=== PATIENT | male | born 1955 | race Caucasian/White ===

== ENCOUNTER 2017-02-11 05:59 | Inpatient (IN) ==
[2017-02-11] MEDS ORDERED: Ipratropium/Albuterol Neb 3 ML IH ONE (06:14)
[2017-02-11] MEDS ORDERED: methylPREDNISolone 125 MG/2 ML VIAL IVP ONE (06:14)
--- NOTE | 2017-02-11 06:15 | Emergency Department Note ---
Disposition Clinical Impression: Dyspnea, Congestive heart failure Disposition: Admitted As Inpatient Condition: Undetermined General Adult HPI - General Chief complaint: ED Shortness of Breath/Dyspnea Stated complaint: CHIO Time Seen by Provider: 02/11/17 06:09 Source: patient, family Limitations: no limitations - History of Present Illness Pain Scale: 9 - Related Data Home Medications Medication Instructions Recorded Confirmed Allopurinol [Zyloprim] 300 mg PO DAILY 12/28/16 02/11/17 Aspirin [Lo-Dose Aspirin EC] 81 mg PO DAILY 12/28/16 02/11/17 Cyanocobalamin (B-12) [Vitamin B12] 1,000 mcg PO DAILY 12/28/16 02/11/17 Digoxin [Lanoxin] 250 mcg PO DAILY 12/28/16 02/11/17 Gabapentin [Neurontin] 300 mg PO TID 12/28/16 02/11/17 Indomethacin 50 mg PO TID 12/28/16 02/11/17 Metoprolol [Lopressor] 25 mg PO BID 12/28/16 02/11/17 Previous Rx's Medication Instructions Recorded HYDROcodone/Acet 5/325 mg [[place] 1 tab PO Q6H PRN #12 tab 02/10/17 5-325 mg] Allergies Allergy/AdvReac Type Severity Reaction Status Date / Time No Known Allergies Allergy Verified 02/11/17 08:14 Past Medical History - Past Medical History Medical history: Reports: atrial fibrillation, COPD Surgical history: Reports: orthopedic, other Psychiatric history: Reports: no psych history - Social History Smoking Status: Never smoker Smokeless Tobacco Status: No Alcohol use: Reports: none Drug use: Reports: none Physical Exam - General Limitations: no limitations General appearance: alert, in no apparent distress Course Vital Signs Temperature 98.1 F 02/11/17 06:02 Pulse Rate 86 02/11/17 06:02 Respiratory Rate 20 02/11/17 06:02 Blood Pressure 93/59 02/11/17 06:02 O2 Sat by Pulse Oximetry 92 02/11/17 06:02 Temperature 97.1 F L 02/12/17 07:27 Pulse Rate 81 02/12/17 07:27 Respiratory Rate 18 02/12/17 11:03 Blood Pressure 102/65 02/12/17 07:27 O2 Sat by Pulse Oximetry 96 02/12/17 11:03 Oxygen Delivery Oxygen Delivery Room Air Medical Decision Making - Lab Data Result diagrams: 02/12/17 01:00 02/12/17 01:00 Lab Results 02/11/17 02/11/17 02/11/17 Range/Units 06:30 06:30 06:30 WBC 9.4 (4.3-11.1) K/mcL RBC 5.04 (4.19-5.50) M/mcL Hgb 14.2 (12.9-16.9) g/dL Hct 44.9 (37.5-50.1) % MCV 89.1 (83.0-100.0) fL MCH 28.2 (28.0-33.3) pg MCHC 31.6 (31.6-35.5) g/dL RDW 18.5 H (11.5-14.5) % Plt Count 173 (140-400) K/mcL MPV 12.2 (9.4-12.4) fL Seg Neutrophils % 52.0 % Band Neutrophils % 42.0 H (0-4) % Lymphocytes % 2.0 % Metamyelocytes % 2.0 H (0) % Myelocytes % 2.0 H (0) % Neutrophils # 8.8 (1.6-8.9) K/mcL Lymphocytes # 0.2 L (0.6-4.6) K/mcL Nucleated RBCs/100 WBC 0.3 H (0) /100 WBC Platelet Estimate Normal (Normal) Sodium 139 (136-145) mEq/L Potassium 4.2 (3.5-4.5) mEq/L Chloride 102 (98-109) mEq/L Carbon Dioxide 22 (19-29) mEq/L BUN 40 H (8-26) mg/dL Creatinine 1.28 H (0.72-1.25) mg/dL Est GFR ( Amer) > 60 (> 60) Est GFR (Non-Af Amer) 57 L (> 60) BUN/Creatinine Ratio 31 H (6-26) Glucose 89 (70-99) mg/dL Calculated Osmolality 297 (280-300) Calcium 9.8 (8.6-10.8) mg/dL Troponin I 0.01 (0-0.03) ng/mL B-Natriuretic Peptide (0-100) pg/mL Digoxin 1.9 (0.8-2.0) ng/mL 02/11/17 Range/Units 06:30 WBC (4.3-11.1) K/mcL RBC (4.19-5.50) M/mcL Hgb (12.9-16.9) g/dL Hct (37.5-50.1) % MCV (83.0-100.0) fL MCH (28.0-33.3) pg MCHC (31.6-35.5) g/dL RDW (11.5-14.5) % Plt Count (140-400) K/mcL MPV (9.4-12.4) fL Seg Neutrophils % % Band Neutrophils % (0-4) % Lymphocytes % % Metamyelocytes % (0) % Myelocytes % (0) % Neutrophils # (1.6-8.9) K/mcL Lymphocytes # (0.6-4.6) K/mcL Nucleated RBCs/100 WBC (0) /100 WBC Platelet Estimate (Normal) Sodium (136-145) mEq/L Potassium (3.5-4.5) mEq/L Chloride (98-109) mEq/L Carbon Dioxide (19-29) mEq/L BUN (8-26) mg/dL Creatinine (0.72-1.25) mg/dL Est GFR ( Amer) (> 60) Est GFR (Non-Af Amer) (> 60) BUN/Creatinine Ratio (6-26) Glucose (70-99) mg/dL Calculated Osmolality (280-300) Calcium (8.6-10.8) mg/dL Troponin I (0-0.03) ng/mL B-Natriuretic Peptide 222 H (0-100) pg/mL Digoxin (0.8-2.0) ng/mL Attestation Statement - Attestation Attestation: I examined this patient and my medical decision-making was reviewed with the Resident Physician. I agree with the documented findings, disposition and treatment plan as described except to the extent set forth below. [id number] time provided A sugar arrives complaining of dyspnea. Home medication list reviewed by me. Patient sitting on the edge of the stretcher and appears in no acute distress at the time of my evaluation. Initial workup started. Care will be endorsed to the oncoming physician Dr. Lacy at 7 AM pending laboratory investigations, chest x-ray, reevaluation
--- NOTE | 2017-02-11 06:27 | Emergency Department Note ---
Disposition Clinical Impression: Dyspnea Qualifiers: Dyspnea type: unspecified Qualified Code(s): R06.00 - Dyspnea, unspecified Disposition: Still a Patient Condition: Undetermined Referrals: Simeon Lloyd Jr, MD [Primary Care Provider] - Forms: ED Satisfaction Letter Time of Disposition: 06:45 SOB HPI - General Chief Complaint: ED Shortness of Breath/Dyspnea Stated Complaint: CHIO Time Seen by Provider: 02/11/17 06:09 Source: patient, family Limitations: no limitations Nursing Notes Reviewed: Yes Vital Signs Reviewed: Yes - History of Present Illness Patient is a 61-year-old male who presents to [facility] ED with a chief complaint of difficulty breathing. States he was seen here recently for a fall and he was prescribed [place]. He took a pill around 2 PM yesterday and then since then has been feeling increasingly short of breath. Past medical history significant for COPD and atrial fibrillation. Denies any fever or chills, cough, chest pain, abdominal pain, problems with urination or bowel movements. Patient does not have any nebulizers at home. States he does use his inhalers. He is not on any home oxygen. Pt Subjective Complaint: shortness of breath Onset (ago): hour(s) Severity: none Consistency/Duration: constant Improves with: nothing Worsens with: nothing Known history of: COPD Associated symptoms: Reports: denies other symptoms. Denies: chest pain, fever , cough, nausea/vomiting, abdominal pain Treatment prior to arrival: none Cough present: No - Related Data Home oxygen amount: none Home Medications Medication Instructions Recorded Confirmed Allopurinol [Zyloprim] 300 mg PO DAILY 12/28/16 12/28/16 Aspirin [Lo-Dose Aspirin EC] 81 mg PO DAILY 12/28/16 12/28/16 Cyanocobalamin (B-12) [Vitamin B12] 1,000 mcg PO DAILY 12/28/16 12/28/16 Digoxin [Lanoxin] 250 mcg PO DAILY 12/28/16 12/28/16 Gabapentin [Neurontin] 300 mg PO TID 12/28/16 12/28/16 Indomethacin 50 mg PO TID 12/28/16 12/28/16 Metoprolol [Lopressor] 25 mg PO BID 12/28/16 12/28/16 Previous Rx's Medication Instructions Recorded HYDROcodone/Acet 5/325 mg [[place] 1 tab PO Q6H PRN #12 tab 02/10/17 5-325 mg] Allergies Allergy/AdvReac Type Severity Reaction Status Date / Time No Known Allergies Allergy Verified 12/24/16 08:41 All systems ED: reviewed and negative except as stated. Past Medical History - Past Medical History Attestation: Yes The following information was validated with the patient. Source: patient Medical history: Reports: atrial fibrillation, COPD Surgical history: Reports: orthopedic, other Psychiatric history: Reports: no psych history - Social History Smoking Status: Never smoker Smokeless Tobacco Status: No Alcohol use: Reports: none Drug use: Reports: none Physical Exam CONSTITUTIONAL: Well-appearing; well-nourished; A&O X 3, in no apparent distress HEAD: Normocephalic; atraumatic EYES: PERRL, no scleral icterus NOSE: The nose is normal in appearance without rhinorrhea NECK: No JVD or distended neck veins RESP: Normal chest excursion with respiration; shallow breath sounds though clear bilaterally; no wheezes, rhonchi, or rales CARD: Regular rhythm, without murmurs, rub or gallop ABD: Non-distended; non-tender, soft, without rigidity, rebound or guarding,no pulsatile mass CHEST: No pain with palpation SKIN: Normal for age and race; warm and dry without diaphoresis ; no apparent lesions EXTREMITIES: Pulses are 2 plus and equal times 4 extremities, no peripheral edema or calf muscle pain - General Limitations: no limitations General appearance: alert, in no apparent distress Course Course Narrative: Patient seen and examined. Difficulty breathing. Cardiopulmonary workup initiated. Will give a breathing treatment as well as some steroids to see if this helps. - Reevaluation(s) Reevaluation #1: Lab work, chest x-ray still pending. Patient signed out to oncoming physician Dr. Lacy Time: 06:44 Vital Signs Temperature 98.1 F 02/11/17 06:02 Pulse Rate 86 02/11/17 06:02 Respiratory Rate 20 02/11/17 06:02 Blood Pressure 93/59 02/11/17 06:02 O2 Sat by Pulse Oximetry 92 02/11/17 06:02 Temperature 98.1 F 02/11/17 06:02 Pulse Rate 86 02/11/17 06:02 Respiratory Rate 20 02/11/17 06:02 Blood Pressure 93/59 02/11/17 06:02 O2 Sat by Pulse Oximetry 92 02/11/17 06:02 Oxygen Delivery Oxygen Delivery Room Air Shortness of Breath/Dyspnea - Medical Records Medical records reviewed: Yes I reviewed the patient's medical records. - EKG Data EKG attestation: Yes I reviewed and interpreted this EKG. EKG results narrative: EKG done at 616 shows atrial fibrillation with a rate of [address] elevation or depression. Left axis deviation. Low voltage throughout. Unchanged from prior EKG done 02/10/2017.
[2017-02-11 07:12] LABS: Hematocrit 44.9 % (37.5-50.1); Hemoglobin 14.2 g/dL (12.9-16.9); Mean Corpuscular HGB Conc 31.6 g/dL (31.6-35.5); Mean Corpuscular Hemoglobin 28.2 pg (28.0-33.3); Mean Corpuscular Volume 89.1 fL (83.0-100.0); Mean Platelet Volume 12.2 fL (9.4-12.4); Platelet Count 173 K/mcL (140-400); Red Blood Count 5.04 M/mcL (4.19-5.50); Red Cell Distribution Width 18.5 % (11.5-14.5)
[2017-02-11] MEDS ORDERED: Furosemide 40 MG/4 ML VIAL IVP ONE (07:12)
--- NOTE | 2017-02-11 07:12 | Emergency Department Note ---
Disposition Clinical Impression: Dyspnea Qualifiers: Dyspnea type: unspecified Qualified Code(s): R06.00 - Dyspnea, unspecified Congestive heart failure Qualifiers: Congestive heart failure type: unspecified congestive heart failure type Congestive heart failure chronicity: acute Qualified Code(s): I50.9 - Heart failure, unspecified Disposition: Admitted As Inpatient Condition: Undetermined Referrals: Simeon Lloyd Jr, MD [Primary Care Provider] - Forms: ED Satisfaction Letter Time of Disposition: 07:57 General Adult HPI - General Chief complaint: ED Shortness of Breath/Dyspnea Stated complaint: CHIO Time Seen by Provider: 02/11/17 06:09 Source: patient, family Limitations: no limitations - History of Present Illness Pain Scale: 9 - Related Data Home Medications Medication Instructions Recorded Confirmed Allopurinol [Zyloprim] 300 mg PO DAILY 12/28/16 02/11/17 Aspirin [Lo-Dose Aspirin EC] 81 mg PO DAILY 12/28/16 02/11/17 Cyanocobalamin (B-12) [Vitamin B12] 1,000 mcg PO DAILY 12/28/16 02/11/17 Digoxin [Lanoxin] 250 mcg PO DAILY 12/28/16 02/11/17 Gabapentin [Neurontin] 300 mg PO TID 12/28/16 02/11/17 Indomethacin 50 mg PO TID 12/28/16 02/11/17 Metoprolol [Lopressor] 25 mg PO BID 12/28/16 02/11/17 Previous Rx's Medication Instructions Recorded HYDROcodone/Acet 5/325 mg [[place] 1 tab PO Q6H PRN #12 tab 02/10/17 5-325 mg] Allergies Allergy/AdvReac Type Severity Reaction Status Date / Time No Known Allergies Allergy Verified 02/11/17 08:14 Past Medical History - Past Medical History Medical history: Reports: atrial fibrillation, COPD Surgical history: Reports: orthopedic, other Psychiatric history: Reports: no psych history - Social History Smoking Status: Never smoker Smokeless Tobacco Status: No Alcohol use: Reports: none Drug use: Reports: none Physical Exam - General Limitations: no limitations General appearance: alert, in no apparent distress Course - Reevaluation(s) Reevaluation #1: 61-year-old with a history COPD and A. fib comes in complaining of shortness of breath. Patient was initially seen by Dr. Warren and treated with dilator and steroids. Chest x-ray shows evidence of CHF. I did review an echocardiogram from 2016 shows an EF of 60%. Time: 07:14 - Consultations Consultation #1: Discussed with , admit. Time: 08:17 Vital Signs Temperature 98.1 F 02/11/17 06:02 Pulse Rate 86 02/11/17 06:02 Respiratory Rate 20 02/11/17 06:02 Blood Pressure 93/59 02/11/17 06:02 O2 Sat by Pulse Oximetry 92 02/11/17 06:02 Temperature 98.1 F 02/11/17 06:02 Pulse Rate 91 02/11/17 08:02 Respiratory Rate 20 02/11/17 08:02 Blood Pressure 118/70 02/11/17 08:02 O2 Sat by Pulse Oximetry 93 02/11/17 08:02 Oxygen Delivery Oxygen Delivery Room Air Medical Decision Making - Lab Data Lab results reviewed: Yes I reviewed the patient's lab results. Result diagrams: 02/11/17 06:30 02/11/17 06:30 Lab Results 02/11/17 02/11/17 02/11/17 Range/Units 06:30 06:30 06:30 WBC 9.4 (4.3-11.1) K/mcL RBC 5.04 (4.19-5.50) M/mcL Hgb 14.2 (12.9-16.9) g/dL Hct 44.9 (37.5-50.1) % MCV 89.1 (83.0-100.0) fL MCH 28.2 (28.0-33.3) pg MCHC 31.6 (31.6-35.5) g/dL RDW 18.5 H (11.5-14.5) % Plt Count 173 (140-400) K/mcL MPV 12.2 (9.4-12.4) fL Seg Neutrophils % 52.0 % Band Neutrophils % 42.0 H (0-4) % Lymphocytes % 2.0 % Metamyelocytes % 2.0 H (0) % Myelocytes % 2.0 H (0) % Neutrophils # 8.8 (1.6-8.9) K/mcL Lymphocytes # 0.2 L (0.6-4.6) K/mcL Nucleated RBCs/100 WBC 0.3 H (0) /100 WBC Platelet Estimate Normal (Normal) Sodium 139 (136-145) mEq/L Potassium 4.2 (3.5-4.5) mEq/L Chloride 102 (98-109) mEq/L Carbon Dioxide 22 (19-29) mEq/L BUN 40 H (8-26) mg/dL Creatinine 1.28 H (0.72-1.25) mg/dL Est GFR ( Amer) > 60 (> 60) Est GFR (Non-Af Amer) 57 L (> 60) BUN/Creatinine Ratio 31 H (6-26) Glucose 89 (70-99) mg/dL Calculated Osmolality 297 (280-300) Calcium 9.8 (8.6-10.8) mg/dL Troponin I 0.01 (0-0.03) ng/mL B-Natriuretic Peptide (0-100) pg/mL Digoxin 1.9 (0.8-2.0) ng/mL 02/11/17 Range/Units 06:30 WBC (4.3-11.1) K/mcL RBC (4.19-5.50) M/mcL Hgb (12.9-16.9) g/dL Hct (37.5-50.1) % MCV (83.0-100.0) fL MCH (28.0-33.3) pg MCHC (31.6-35.5) g/dL RDW (11.5-14.5) % Plt Count (140-400) K/mcL MPV (9.4-12.4) fL Seg Neutrophils % % Band Neutrophils % (0-4) % Lymphocytes % % Metamyelocytes % (0) % Myelocytes % (0) % Neutrophils # (1.6-8.9) K/mcL Lymphocytes # (0.6-4.6) K/mcL Nucleated RBCs/100 WBC (0) /100 WBC Platelet Estimate (Normal) Sodium (136-145) mEq/L Potassium (3.5-4.5) mEq/L Chloride (98-109) mEq/L Carbon Dioxide (19-29) mEq/L BUN (8-26) mg/dL Creatinine (0.72-1.25) mg/dL Est GFR ( Amer) (> 60) Est GFR (Non-Af Amer) (> 60) BUN/Creatinine Ratio (6-26) Glucose (70-99) mg/dL Calculated Osmolality (280-300) Calcium (8.6-10.8) mg/dL Troponin I (0-0.03) ng/mL B-Natriuretic Peptide 222 H (0-100) pg/mL Digoxin (0.8-2.0) ng/mL - Radiology Data Radiology results reviewed: Yes I reviewed the patient's radiology results. Chest X-Ray 02/11/17 06:14 IMPRESSION: 1. Hypoinflated lungs. 2. Cardiomegaly with pulmonary edema and small pleural effusions compatible with CHF. D/ / Shanthi Henry MD / Shanthi Henry MD Interpreting Provider: Shanthi Henry MD - EKG Data EKG #1 EKG attestation: Yes I reviewed and interpreted this EKG. Rhythm: A.Fib [place]/QRS: normal Interpretation: no acute changes
[2017-02-11 07:13] LABS: Nucleated Red Blood Cells 0.3 /100 WBC (0)
--- NOTE | 2017-02-11 07:13 | Electrocardiograph Report ---
[facility] Test Date: 2017-02-11 Pat Name: Vinnie Daniel Department: 103 Room: Gender: M Psychiatric Therapist: LEEANN MITCHELLB: 1955 Requested By: Savi Godoy Order Number: [id number] Reading MD: Lupillo Calvillo MD Measurements Intervals [place] Rate: 78 P: MS: 0 QRS: -5 QRSD: 101 T: 16 QT: 322 QTc: 355 Interpretive Statements ATRIAL FIBRILLATION LOW QRS VOLTAGE IN PRECORDIAL LEADS Electronically Signed On 02-11-2017 7:12:02 EST by Lupillo Calvillo MD
[2017-02-11 07:25] LABS: BUN/Creatinine Ratio 31 (6-26); Blood Urea Nitrogen 40 mg/dL (8-26); Calcium 9.8 mg/dL (8.6-10.8); Carbon Dioxide 22 mEq/L (19-29); Chloride 102 mEq/L (98-109); Glucose 89 mg/dL (70-99); Osmolality,Calculated 297 (280-300); Sodium 139 mEq/L (136-145); eGFR For African Americans > 60 (> 60); eGFR For Non-African Americans 57 (> 60)
[2017-02-11 07:29] LABS: Potassium 4.2 mEq/L (3.5-4.5)
[2017-02-11 07:33] LABS: Digoxin 1.9 ng/mL (0.8-2.0)
[2017-02-11 07:44] LABS: Lymphocytes # 0.2 K/mcL (0.6-4.6); Neutrophils # 8.8 K/mcL (1.6-8.9)
[2017-02-11 07:45] LABS: Platelet Estimate Normal (Normal)
--- NOTE | 2017-02-11 09:06 | Internal Med History&Physical ---
Date of Encounter: 02/11/17 Time of Encounter: 08:52 Assessment and Plan (1) Congestive heart failure Current visit: Yes Status: Acute Patient has likely diastolic congestive heart failure. Echocardiogram done in 2016 is suggestive of normal ejection fraction with elevated right ventricular systolic pressure. Patient has elevated BNP. Noted that x-rays this is suggestive of of congestive heart failure. Plan: Admit as inpatient: Patient needs intravenous diuretics. We will start him on Lasix 20 mg twice a day. We will monitor electrolytes very closely. Patient has a huge abdominal wall hernia that may be the limiting factor for his shortness of breath too. Qualifiers: Congestive heart failure type: unspecified congestive heart failure type Congestive heart failure chronicity: acute Qualified Code(s): I50.9 - Heart failure, unspecified (2) Dyspnea Current visit: Yes Status: Acute See above Qualifiers: Dyspnea type: unspecified Qualified Code(s): R06.00 - Dyspnea, unspecified (3) Injury of left rotator cuff Current visit: No Status: Acute I will call orthopedic transmission rebuilder to evaluate left rotator cuff injury. Qualifiers: Encounter type: subsequent encounter Qualified Code(s): S46.002D - Unspecified injury of muscle(s) and tendon(s) of the rotator cuff of left shoulder, subsequent encounter (4) Decubitus ulcer of right heel, stage 3 Current visit: No Status: Acute Stable DVT prophylaxis: Heparin Medical decision making: This patient has a moderate to severe risk of worsening in spite of being on appropriate medication due to the underlying complex medical condition. Internal Medicine - H&P: HPI Chief complaint: shortness of breath Admitted From: Emergency Dept History of present illness: PCP: Dr. Mike Lino Mr. Daniel is a 61 year old male with a background history of her COPD, hypertension, atrial fibrillation not on any anticoagulation, background history of congestive heart failure(echocardiogram: 04/08/2015: Ejection fraction 60%, RVSP 46, enlarged left atria.) Who was recently in the emergency room for left shoulder pain. Patient was sent home yesterday with the medication for left shoulder pain. Patient started feeling shortness of breath since last evening. The shortness of breath was getting worse since this morning. Patient came to the emergency room slat twister as he could not breathe well. Patient was evaluated in the emergency room. Basic labs are drawn. Noted that his BNP was elevated. X-ray chest was done which was suggestive of acute congestive heart failure. reason for admission: Exacerbation of her congestive heart failure possible diastolic. Family history: Noncontributory Past Med Surg Social Fam HX - Past Medical History Medical history: atrial fibrillation, COPD Psychiatric history: no psych history - Past Surgical History Surgical History: orthopedic, other - Social History Smoking Status: Never smoker Smokeless Tobacco Status: No Alcohol use: none Drug use: none - Family History Mother Living Status: Hx Family Cardiac Disorders: Yes Internal Medicine - H&P: Meds Allopurinol [Zyloprim] 300 mg PO DAILY 12/28/16 [History] Aspirin [Lo-Dose Aspirin EC] 81 mg PO DAILY 12/28/16 [History] Cyanocobalamin (B-12) [Vitamin B12] 1,000 mcg PO DAILY 12/28/16 [History] Digoxin [Lanoxin] 250 mcg PO DAILY 12/28/16 [History] Gabapentin [Neurontin] 300 mg PO TID 12/28/16 [History] Indomethacin 50 mg PO TID 12/28/16 [History] Metoprolol [Lopressor] 25 mg PO BID 12/28/16 [History] HYDROcodone/Acet 5/325 mg [[place] 5-325 mg] 1 tab PO Q6H PRN #12 tab 02/10/17 [Rx ] 3 Allergy/AdvReac Type Severity Reaction Status Date / Time No Known Allergies Allergy Verified 02/11/17 08:14 All Systems PM: A 10-system review of systems was performed and is negative for pertinent findings except as documented above in the HPI. - Constitutional Constitutional: no chills, no fever(s), no night sweats - EENT Eyes: no change in vision, no discharge, no pain, no photophobia Ears: no ear discharge, no ear pain, no tinnitus Nose, mouth and throat: no dysphagia, no nasal discharge, no neck pain, no sore throat - Cardiovascular Cardiovascular ROS IM: diaphoresis, dyspnea, lightheadedness, no chest pain, no palpitations, no syncope - Respiratory Respiratory: cough, dyspnea, no wheezing, no excessive phlegm production - Gastrointestinal Gastrointestinal: no abdominal pain, no diarrhea, no hematemesis, no hematochezia, no melena, no nausea, no vomiting - Musculoskeletal Musculoskeletal ROS IM: no numbness, no tingling - Integumentary Integumentary IM: no rash, no unusual bruising - Neurological Neurological ROS: no confusion, no convulsions, no focal weakness, no numbness, no tingling, no tremor(s) - Hematologic/Lymphatic Hematologic/Lymphatic: no easy bruising - Constitutional Vitals: Temp Pulse Resp BP Pulse Ox 98.1 F 91 20 118/70 93 02/11/17 06:02 02/11/17 08:02 02/11/17 08:02 02/11/17 08:02 02/11/17 08:02 General appearance: Present: A&O X 3, pleasant, no acute distress, answers questions appropriately - Head Head exam: Present: atraumatic, normocephalic - Eye Eye exam: Present: PERRL, conjuntiva pink, sclera anicteric Pupils: Present: PERRL - Neck Neck exam general surgery: Present: supple, trachea midline. Absent: lymphadenopathy - Respiratory Respiratory exam: Present: CTAB. Absent: accessory muscle use, rales, rhonchi, wheezes - Cardiovascular Cardiovascular exam: Present: RRR, +S1, +S2. Absent: diastolic murmur, gallop, rubs, systolic murmur - GI/Abdominal GI/Abdominal exam: Present: normal bowel sounds, soft, no peritoneal signs. Absent: distended, tenderness Additional comments: large abdominal ventral hernia - Extremities Exam Extremities exam: Present: warm, radial pulses palpable and symmetrical. Absent : calf tenderness, cyanotic, pedal edema Additional comments: left shoulder joint pain on movemnt. - Neurological Exam Neurological exam: Present: CN II-XII intact, oriented X3, no focal deficits. Absent: pronater drift, facial droop, speech deficit - Skin Skin exam: Present: dry, intact Internal Med - H&P Results - Labs CBC & Chem 7: 02/11/17 06:30 02/11/17 06:30
[2017-02-11] MEDS ORDERED: Naloxone 0.4 MG/ML INJ IVP PRN (09:08)
[2017-02-11] MEDS ORDERED: *HR* HYDROcodone/Acet 5/325 mg TABLET PO PRN (09:11)
[2017-02-11] MEDS: Ipratropium/Albuterol Neb 3 ML IH SCH ×3 (12:16→20:35)
[2017-02-11] MEDS ORDERED: Acetaminophen 325 MG TABLET PO ONE (13:02)
[2017-02-11] MEDS: Gabapentin 300 MG CAPSULE PO SCH ×2 (16:03→21:36)
[2017-02-11] MEDS: Furosemide 20 MG/2 ML VIAL IVP SCH (16:05)
[2017-02-11] MEDS: *HR* Heparin 5,000 UNIT/ML VIAL SQ SCH (18:28)
--- NOTE | 2017-02-11 21:48 | Orthopedic Consult Note ---
Date of Encounter: 02/11/17 Time of Encounter: 21:40 History of Present Illness Chief complaint: Left shoulder pain HPI: Mr. Daniel is a 61 year old [id number] male with acute onset of left shoulder pain over this past weekend. Patient states that he was falling and reached up and grabbed with his left arm. Had immediate initial pain but more importantly noted that he could not elevate his left arm. He was seen in the emergency room where he suspected to have a rotator cuff injury. He initially went home but returned with shortness of breath and was admitted with congestive heart failure. At this time the patient states she is having little to no pain. This has been treated easily with Tylenol. He denies neurovascular complaints. He denies any previous problems with the left shoulder. Anirudh for complete history and physical data please refer the completed portion of the medical record. Pertinent orthopedic examination at this time reveals gonzales rotator cuff weakness. He has limited abduction less than 45 degrees. Overt rotator cuff weakness at the side is noted. There does appear to be some crepitant motion. I reviewed an x-ray obtained 02-10-2017, this reveals chronic arthritic changes of the humeral head with the mostly inferior spurring. There is also spurring of the glenoid. More importantly there is a very narrowed subacromial space with x-ray views showing what appear to be humeral acromial articulation. There are rather advanced arthritic changes at the acromioclavicular joint. Impression: Left total rotator cuff arthropathy, left glenohumeral arthritis associated with a rotator cuff tear. Recommendations: I discussed with the patient that with a complete rotator cuff tear this will not heal on its own. The only option for attempting to restore rotator cuff strength is with operative repair. Rotator cuff repair ,however, would not eliminate the arthritic changes. Definitive surgery would be a reverse ball total shoulder arthroplasty. At this point in time ,however, the patient is not a candidate for any type of surgical intervention. Symptomatic treatment could include subacromial corticosteroid injections or other medications. At this time the patient is quite comfortable with his shoulder as is and he understands the treatment possibilities we laid out for him. At this time will continue with symptomatic care. I gave him my card and phone number for follow-up as needed on an outpatient basis. Thank you very much for allowing me to see care for Mr. Daniel. Sincerely, Anirudh Mojica,DO Past Med Surg Social Fam HX - Past Medical History Medical history: atrial fibrillation, COPD, other Psychiatric history: no psych history - Past Surgical History Surgical History: orthopedic, other - Social History Smoking Status: Never smoker Smokeless Tobacco Status: No Alcohol use: none Drug use: none - Family History Mother Living Status: Hx Family Cardiac Disorders: Yes Medications and Allergies Allopurinol [Zyloprim] 300 mg PO DAILY 12/28/16 [History] Aspirin [Lo-Dose Aspirin EC] 81 mg PO DAILY 12/28/16 [History] Cyanocobalamin (B-12) [Vitamin B12] 1,000 mcg PO DAILY 12/28/16 [History] Digoxin [Lanoxin] 250 mcg PO DAILY 12/28/16 [History] Gabapentin [Neurontin] 300 mg PO TID 12/28/16 [History] Indomethacin 50 mg PO TID 12/28/16 [History] Metoprolol [Lopressor] 25 mg PO BID 12/28/16 [History] HYDROcodone/Acet 5/325 mg [[place] 5-325 mg] 1 tab PO Q6H PRN #12 tab 02/10/17 [Rx ] 3 Allergy/AdvReac Type Severity Reaction Status Date / Time No Known Allergies Allergy Verified 02/11/17 08:14 All Systems Reviewed: A 10-system review of systems was performed and is negative for pertinent findings except as documented above in the HPI. Physical Exam - Constitutional Vitals: Temp Pulse Resp BP Pulse Ox 98.2 F 81 20 116/84 95 02/11/17 15:27 02/11/17 15:27 02/11/17 20:36 02/11/17 15:27 02/11/17 20:36 Results - Labs Result Diagrams: 02/11/17 06:30 02/11/17 06:30 Labs: Abnormal lab results RDW 18.5 % (11.5-14.5) H 02/11/17 06:30 Band Neutrophils % 42.0 % (0-4) H 02/11/17 06:30 Metamyelocytes % 2.0 % (0) H 02/11/17 06:30 Myelocytes % 2.0 % (0) H 02/11/17 06:30 Lymphocytes # 0.2 K/mcL (0.6-4.6) L 02/11/17 06:30 Nucleated RBCs/100 WBC 0.3 /100 WBC (0) H 02/11/17 06:30 BUN 40 mg/dL (8-26) H 02/11/17 06:30 Creatinine 1.28 mg/dL (0.72-1.25) H 02/11/17 06:30 Est GFR (Non-Af Amer) 57 (> 60) L 02/11/17 06:30 BUN/Creatinine Ratio 31 (6-26) H 02/11/17 06:30 B-Natriuretic Peptide 222 pg/mL (0-100) H 02/11/17 06:30 All other labs normal. - Diagnostic results Shoulder x-ray: image reviewed Consult Discharge Plan - Plan Referrals: Simeon Lloyd Jr, MD [Primary Care Provider] -
[2017-02-12] MEDS: Ipratropium/Albuterol Neb 3 ML IH SCH ×7 (00:15→23:27)
[2017-02-12 01:19] LABS: Hematocrit 42.3 % (37.5-50.1); Hemoglobin 13.2 g/dL (12.9-16.9); Mean Corpuscular HGB Conc 31.2 g/dL (31.6-35.5); Mean Corpuscular Hemoglobin 28.2 pg (28.0-33.3); Mean Corpuscular Volume 90.4 fL (83.0-100.0); Mean Platelet Volume 12.9 fL (9.4-12.4); Platelet Count 157 K/mcL (140-400); Red Blood Count 4.68 M/mcL (4.19-5.50); Red Cell Distribution Width 18.9 % (11.5-14.5)
[2017-02-12 01:21] LABS: INR 1.6; Prothrombin Time 17.9 Seconds (9.4-12.1)
[2017-02-12 01:23] LABS: Activated Partial Thrombo Time 33.3 Seconds (26.0-36.0)
[2017-02-12 01:35] LABS: Alanine Aminotransferase 45 Units/L (0-55); Albumin 2.2 g/dL (3.5-5.0); Albumin/Globulin Ratio 0.5 (1.1-2.2); Alkaline Phosphatase 123 Units/L (38-126); Aspartate Amino Transferase 49 Units/L (5-34); BUN/Creatinine Ratio 29 (6-26); Bilirubin,Total 4.4 mg/dL (0.2-1.2); Calcium 9.2 mg/dL (8.6-10.8); Carbon Dioxide 24 mEq/L (19-29); Chloride 104 mEq/L (98-109); Cholesterol 139 mg/dL (< 200); Globulin 4.6 g/dL (2.4-3.5); Glucose 143 mg/dL (70-99); LDL Cholesterol,Calculated 68 mg/dL (0-99); Magnesium 2.2 mg/dL (1.6-2.6); Osmolality,Calculated 311 (280-300); Phosphorous 5.7 mg/dL (2.3-4.7); Potassium 4.1 mEq/L (3.5-4.5); Sodium 141 mEq/L (136-145); Total Protein 6.8 g/dL (6.0-8.3); Triglycerides 329 mg/dL (< 150); eGFR For African Americans 42 (> 60); eGFR For Non-African Americans 35 (> 60)
[2017-02-12 01:41] LABS: Blood Urea Nitrogen 58 mg/dL (8-26); HDL Cholesterol < 5 mg/dL (40-59)
[2017-02-12 01:52] LABS: Lymphocytes # 0.2 K/mcL (0.6-4.6); Neutrophils # 11.4 K/mcL (1.6-8.9); Toxic Granulation Present (Not Present)
[2017-02-12 01:53] LABS: Large Platelets Present (Not Present); Platelet Estimate Normal (Normal)
[2017-02-12] MEDS: *HR* Heparin 5,000 UNIT/ML VIAL SQ SCH ×2 (06:36→18:33)
[2017-02-12] MEDS: Furosemide 20 MG/2 ML VIAL IVP SCH ×2 (08:00→18:32)
[2017-02-12] MEDS: Aspirin Enteric Coated 81 MG Tablet PO SCH (08:00)
[2017-02-12] MEDS: Gabapentin 300 MG CAPSULE PO SCH ×2 (08:00→14:49)
[2017-02-12] MEDS ORDERED: *HR* Digoxin 0.25 MG TABLET PO SCH (09:00)
[2017-02-12 10:20] LABS: Bilirubin,Urine Moderate (Negative); Blood,Urine Large (Negative); Clarity,Urine Turbid (Clear); Color,Urine Orange (Yellow); Glucose,Urine (UA) Normal (Normal); Ketones,Urine Negative (Negative); Leukocyte Esterase,Urine Small (Negative); Nitrite,Urine Negative (Negative); PH,Urine 5.5 pH Units (5.0-8.0); Protein,Urine 30 mg/dL (Neg-Trace); Specific Gravity,Urine 1.022 (1.010-1.025)
[2017-02-12 10:23] LABS: Squamous Epithelial Cell,Urine Many per lpf (None-Few)
[2017-02-12 10:31] LABS: Granular Casts,Urine Moderate per lpf (None Seen)
[2017-02-12 10:32] LABS: Bacteria,Urine Moderate per hpf (None-Few)
[2017-02-12 10:33] LABS: RBC,Urine 15-30 per hpf (0-3)
[2017-02-12 13:21] LABS: ABG Base Excess -3 mEq/L (-2 to 3); ABG HCO3 24 mEq/L (21-27); ABG Oxygen Saturation 92 % (95-98); ABG PCO2 47 mmHg (35-45); ABG PH 7.31 pH Units (7.32-7.45); ABG PO2 71 mmHg (85-104); ABG TCO2 25 mEq/L (20-26)
--- NOTE | 2017-02-12 16:33 | Internal Med Progress Note ---
Date of Encounter: 02/12/17 Time of Encounter: 13:25 - Assessment and plan (1) Dyspnea Current Visit: Yes Status: Acute Assessment and plan: secondary to CHF exacerbation continue IV diuretics strict I/OS, bipap support, daily weights, fluid restriction diet O2 supplementation as needed 2D echo will closely monitor respiratory status Qualifiers: Dyspnea type: unspecified Qualified Code(s): R06.00 - Dyspnea, unspecified (2) CHF exacerbation Current Visit: Yes Status: Acute Assessment and plan: plan as listed above Qualifiers: Congestive heart failure type: unspecified congestive heart failure type Qualified Code(s): I50.9 - Heart failure, unspecified (3) UTI (urinary tract infection) Current Visit: Yes Status: Acute Assessment and plan: UA concerning for UTI in addition to persistent bandemia will start on empiric IV abx f/u urine cultures CXR negative for any infectious etiology Qualifiers: Urinary tract infection type: acute cystitis Hematuria presence: without hematuria Qualified Code(s): N30.00 - Acute cystitis without hematuria (4) Oppaa-gv-uhqpgof kidney injury Current Visit: Yes Status: Acute Assessment and plan: Noted to have worsening renal function will continue to closely monitor noted to be hypotensive, will hold antihypertensive medications for SBP<110 Qualifiers: Acute renal failure type: unspecified Chronic kidney disease stage: stage 3 (moderate) Qualified Code(s): N17.9 - Acute kidney failure, unspecified; N18.3 - Chronic kidney disease, stage 3 (moderate); N18.3 - Chronic kidney disease, stage 3 (moderate) (5) Injury of left rotator cuff Current Visit: No Status: Acute Assessment and plan: ortho evaluation appreciated no acute surgical intervention recommended supportive measures Qualifiers: Encounter type: subsequent encounter Qualified Code(s): S46.002D - Unspecified injury of muscle(s) and tendon(s) of the rotator cuff of left shoulder, subsequent encounter (6) DVT prophylaxis Current Visit: Yes Status: Acute Assessment and plan: Heparin SQ (7) Decubitus ulcer of right heel, stage 3 Current Visit: No Status: Chronic - Subjective Interval history: Patient seen and examined at bedside. Resting in bed and reports of feeling better since his arrival to the hospital. As per the nursing staff, patient was found to have labored breathing and saturating in the 90s on 4-5L of nasal cannula. A stat abg was ordered consistent with primary respiratory acidosis. Pt was placed on bipap support to which he responded appropriately. He is noted to have a large ventral hernia and states that has been there for 10+years and he chooses not to have any surgical intervention. - Constitutional Vitals: Temp Pulse Resp BP Pulse Ox 98.0 F 92 31 99/69 93 02/12/17 15:49 02/12/17 15:49 02/12/17 16:23 02/12/17 15:49 02/12/17 16:23 General appearance: Present: A&O X 3, pleasant, no acute distress, answers questions appropriately - Head Head exam: Present: atraumatic, normocephalic - Eye Eye exam: Present: conjuntiva pink, sclera anicteric - Respiratory Respiratory exam: Present: decreased breath sounds. Absent: respiratory distress, wheezes - Cardiovascular Cardiovascular exam: Present: RRR, +S1, +S2. Absent: diastolic murmur, gallop, rubs, systolic murmur - GI/Abdominal GI/Abdominal exam: Present: normal bowel sounds, soft, no peritoneal signs ( large ventral hernia ). Absent: tenderness - Extremities Exam Extremities exam: Present: pedal edema, warm, radial pulses palpable and symmetrical. Absent: calf tenderness - Neurological Exam Neurological exam: Present: alert, oriented X3 Internal Medicine: Result - Labs CBC & Chem 7: 02/12/17 01:00 02/12/17 01:00 Labs: Short CBC 02/12/17 Range/Units 01:00 WBC 11.6 H (4.3-11.1) K/mcL Hgb 13.2 (12.9-16.9) g/dL Hct 42.3 (37.5-50.1) % Plt Count 157 (140-400) K/mcL Neutrophils # 11.4 H (1.6-8.9) K/mcL BMP 02/12/17 01:00 Sodium 141 Potassium 4.1 Chloride 104 Carbon Dioxide 24 BUN 58 H D Creatinine 1.97 H D Glucose 143 H Calcium 9.2 Cardiac Enzymes 02/11/17 02/12/17 Range/Units 19:22 01:00 Troponin I 0.00 0.01 (0-0.03) ng/mL Liver Function 02/12/17 Range/Units 01:00 Total Bilirubin 4.4 H (0.2-1.2) mg/dL AST 49 H (5-34) Units/L ALT 45 (0-55) Units/L Alkaline Phosphatase 123 (38-126) Units/L Albumin 2.2 L (3.5-5.0) g/dL Urine 02/12/17 Range/Units 10:00 Urine Color [place] A (Yellow) Urine Clarity Turbid A (Clear) Urine pH 5.5 (5.0-8.0) pH Units Ur Specific [place] 1.022 (1.010-1.025) Urine Protein 30 H (Neg-Trace) mg/dL Urine Glucose (UA) Normal (Normal) mg/dL - ABG Interpretation ABG results: ABG ABG pH 7.31 pH Units (7.32-7.45) L 02/12/17 13:17 ABG pCO2 47 mmHg (35-45) H 02/12/17 13:17 ABG pO2 71 mmHg (85-104) L 02/12/17 13:17 ABG O2 Saturation 92 % (95-98) L 02/12/17 13:17 PT/INR, D-dimer PT 17.9 Seconds (9.4-12.1) H 02/12/17 01:00 - Impressions Impressions Head CT 02/12/17 05:22 IMPRESSION: Limited exam with no definite acute intracranial abnormality. D/ / Oli Germain MD / Oli Germain MD Interpreting Provider: Oli Germain MD Consult Discharge Plan - Plan Referrals: Simeon Lloyd Jr, MD [Primary Care Provider] -
[2017-02-12] MEDS ORDERED: *HR* LORazepam 2 MG/ML VIAL IVP ONE (16:55)
[2017-02-12] MEDS ORDERED: cefTRIAXone 1,000 MG in Water for inj. (sterile) 10 ML IVP SCH (17:00)
[2017-02-12] MEDS ORDERED: Gabapentin 400 MG CAPSULE PO SCH (21:00)
[2017-02-13] MEDS: Ipratropium/Albuterol Neb 3 ML IH SCH ×6 (03:35→23:18)
[2017-02-13] MEDS: *HR* Heparin 5,000 UNIT/ML VIAL SQ SCH ×3 (05:35→17:55)
[2017-02-13 06:03] LABS: Hematocrit 42.8 % (37.5-50.1); Hemoglobin 13.1 g/dL (12.9-16.9); Mean Corpuscular HGB Conc 30.6 g/dL (31.6-35.5); Mean Corpuscular Hemoglobin 27.9 pg (28.0-33.3); Mean Corpuscular Volume 91.1 fL (83.0-100.0); Mean Platelet Volume 13.8 fL (9.4-12.4); Monocytes # 0.7 K/mcL (0.0-1.3); Nucleated Red Blood Cells 0.1 /100 WBC (0); Platelet Count 134 K/mcL (140-400); Red Cell Distribution Width 19.1 % (11.5-14.5)
[2017-02-13 06:19] LABS: Calcium 8.7 mg/dL (8.6-10.8); Magnesium 2.5 mg/dL (1.6-2.6); Phosphorous 7.2 mg/dL (2.3-4.7); Potassium 4.7 mEq/L (3.5-4.5)
[2017-02-13 06:35] LABS: Lymphocytes # 0.4 K/mcL (0.6-4.6); Neutrophils # 16.5 K/mcL (1.6-8.9); Platelet Estimate Slight Decrease (Normal)
[2017-02-13 07:58] LABS: ABG Base Excess -3 mEq/L (-2 to 3); ABG HCO3 26 mEq/L (21-27); ABG Oxygen Saturation 96 % (95-98); ABG PCO2 61 mmHg (35-45); ABG PH 7.24 pH Units (7.32-7.45); ABG PO2 94 mmHg (85-104); ABG TCO2 28 mEq/L (20-26); Blood Gas Modality BiLevel; Blood Gas PEEP 8 cm H2O
[2017-02-13] MEDS ORDERED: Vancomycin 2,000 MG in D5% in Water 500 ML IVPB ONE (08:00)
[2017-02-13] MEDS ORDERED: methylPREDNISolone 125 MG/2 ML VIAL IVP ONE (08:10)
[2017-02-13] MEDS ORDERED: *HR* Digoxin 0.125 MG TABLET PO SCH (09:00)
--- NOTE | 2017-02-13 09:06 | Internal Med Progress Note ---
Date of Encounter: 02/13/17 Time of Encounter: 08:10 - Assessment and plan (1) Sepsis Current Visit: Yes Status: Acute Assessment and plan: Likely secondary to RUL PNA LA within normal limits will continue empiric IV abx with Vancomycin and Zosyn (renally dosing abx) f/u blood and urine cultures will start gentle IV fluids and closely monitor for signs of volume overload Qualifiers: Sepsis type: sepsis due to unspecified organism Qualified Code(s): A41.9 - Sepsis, unspecified organism (2) Acute respiratory failure with hypercapnia Current Visit: Yes Status: Acute Assessment and plan: Multifactorial, likely secondary to worsening PNA, COPD exacerbation, and CHF decompensation will continue bipap support IV steroids bronchodilator support holding lasix and dig at this time given renal function continue IV abx, f/u blood cultures patient at high risk for requiring intubation, critical care consultation requested pending transfer to ICU (3) COPD exacerbation Current Visit: Yes Status: Acute Assessment and plan: plan as listed above (4) Pneumonia Current Visit: Yes Status: Acute Assessment and plan: as listed above Qualifiers: Pneumonia type: due to unspecified organism Laterality: right Lung location: upper lobe of lung Qualified Code(s): J18.1 - Lobar pneumonia, unspecified organism (5) CHF exacerbation Current Visit: Yes Status: Acute Assessment and plan: awaiting 2D echo results holding dig and lasix at this time given renal function hold BB if SBP<100 will continue to closely monitor Qualifiers: Congestive heart failure type: unspecified congestive heart failure type Qualified Code(s): I50.9 - Heart failure, unspecified (6) UTI (urinary tract infection) Current Visit: Yes Status: Acute Assessment and plan: continue empiric IV abx f/u urine cultures Qualifiers: Urinary tract infection type: acute cystitis Hematuria presence: without hematuria Qualified Code(s): N30.00 - Acute cystitis without hematuria (7) [id number] kidney injury Current Visit: Yes Status: Acute Assessment and plan: Likely secondary to underlying sepsis Nephrology consultation requested holding lasix and dig at this time renally dosing abx gentle IV fluids avoid nephrotoxic agents will closely monitor Qualifiers: Acute renal failure type: unspecified Chronic kidney disease stage: stage 3 (moderate) Qualified Code(s): N17.9 - Acute kidney failure, unspecified; N18.3 - Chronic kidney disease, stage 3 (moderate); N18.3 - Chronic kidney disease, stage 3 (moderate) (8) Injury of left rotator cuff Current Visit: No Status: Acute Assessment and plan: ortho evaluation appreciated no acute surgical intervention recommended supportive measures Qualifiers: Encounter type: subsequent encounter Qualified Code(s): S46.002D - Unspecified injury of muscle(s) and tendon(s) of the rotator cuff of left shoulder, subsequent encounter (9) DVT prophylaxis Current Visit: Yes Status: Acute Assessment and plan: Heparin SQ (10) Decubitus ulcer of right heel, stage 3 Current Visit: No Status: Chronic - Subjective Interval history: Patient seen and examined at bedside. Patient was noted to have worsening mental status with respiratory distress overnight and this morning. He was found to be tachypneic and confused. STAT CXR reported RUL PNA with worsening respiratory status. Patient also has underlying COPD which is also contributing his current respiratory status. Patient is currently Septic secondary to PNA Acute respiratory failure secondary to PNA/COPD exac/CHF decompensation Pt is started on empiric IV abx, systemic steroids, bipap settings adjusted as per ABG report LA within normal limits Pt noted to be hypotensive overnight, however improved at this time. Pt is to be transferred to ICU-pending bed availability - Constitutional Vitals: Temp Pulse Resp BP Pulse Ox 97.7 F 94 37 111/44 96 02/13/17 07:36 02/13/17 07:36 02/13/17 08:13 02/13/17 07:36 02/13/17 08:13 General appearance: Present: A&O X 0, mild distress (respiratory distress), pleasant, answers questions appropriately - Head Head exam: Present: atraumatic, normocephalic - Eye Eye exam: Present: conjuntiva pink, sclera anicteric - Respiratory Respiratory exam: Present: decreased breath sounds. Absent: accessory muscle use, chest wall tenderness, wheezes - Cardiovascular Cardiovascular exam: Present: RRR, +S1, +S2. Absent: diastolic murmur, gallop, rubs, systolic murmur - GI/Abdominal GI/Abdominal exam: Present: normal bowel sounds (large ventral hernia), soft, no peritoneal signs. Absent: tenderness - Extremities Exam Extremities exam: Present: pedal edema, warm, radial pulses palpable and symmetrical. Absent: calf tenderness - Neurological Exam Neurological exam: Present: alert Internal Medicine: Result - Labs CBC & Chem 7: 02/13/17 05:23 02/13/17 05:23 Labs: Short CBC 02/13/17 Range/Units 05:23 WBC 17.5 H D (4.3-11.1) K/mcL Hgb 13.1 (12.9-16.9) g/dL Hct 42.8 (37.5-50.1) % Plt Count 134 L (140-400) K/mcL Neutrophils # 16.5 H (1.6-8.9) K/mcL BMP 02/13/17 05:23 Sodium 141 Potassium 4.7 H Chloride 104 Carbon Dioxide 22 BUN 97 H D Creatinine 2.72 H Glucose 97 Calcium 8.7 Urine 02/12/17 Range/Units 10:00 Urine Color [place] A (Yellow) Urine Clarity Turbid A (Clear) Urine pH 5.5 (5.0-8.0) pH Units Ur Specific [place] 1.022 (1.010-1.025) Urine Protein 30 H (Neg-Trace) mg/dL Urine Glucose (UA) Normal (Normal) mg/dL - ABG Interpretation ABG results: ABG ABG pH 7.24 pH Units (7.32-7.45) L 02/13/17 07:53 ABG pCO2 61 mmHg (35-45) H 02/13/17 07:53 ABG pO2 94 mmHg (85-104) 02/13/17 07:53 ABG O2 Saturation 96 % (95-98) 02/13/17 07:53 PT/INR, D-dimer PT 17.9 Seconds (9.4-12.1) H 02/12/17 01:00 - Impressions Impressions Chest X-Ray 02/13/17 07:46 IMPRESSION: Large area of airspace consolidation in the perihilar region and right upper lobe. Findings suggest worsening pneumonia. Recommend follow-up after resolution of acute symptoms to exclude a central underlying mass. D/ / 02/13/2017 08:20:22 Martinez Burns MD / [facility] Interpreting Provider: Martinez Burns MD Consult Discharge Plan - Plan Referrals: Simeon Lloyd Jr, MD [Primary Care Provider] -
[2017-02-13] MEDS: Piperacillin/Tazobactam 3.375 GM in D5% in Water 50 ML IVPB SCH ×2 (09:07→18:11)
[2017-02-13] MEDS ORDERED: 0.9 % Sodium Chloride 1,000 ML IVC SCH (09:15)
--- NOTE | 2017-02-13 09:44 | Pulmonology Consult Note ---
<KelleVinnie headley - Last Filed: 02/13/17 16:01> Date of Encounter: 02/13/17 Time of Encounter: 09:43 Assessment and Plan (1) Acute respiratory failure with hypercapnia Current Visit: Yes Status: Acute Likely related to severe sepsis in the setting of pneumonia as well as UTI related to ureteral stone. Patient was intubated and is maintained on mechanical ventilation at this time. Titrate ventilator settings to maintain adequate oxygenation and ventilation. (2) Sepsis Current Visit: Yes Status: Acute Severe sepsis in the setting of urinary tract infection as well as pneumonia. Lactate was 1.9. Blood cultures are pending, urine culture shows gram-negative nieves. Patient received cautious fluid hydration in the setting of possible heart failure. Continue broad-spectrum antibiotics with vancomycin and Zosyn. De-escalate up on culture finalization. Qualifiers: Sepsis type: sepsis due to unspecified organism Qualified Code(s): A41.9 - Sepsis, unspecified organism (3) Pneumonia Current Visit: Yes Status: Acute CT of the chest shows bibasilar airspace disease. Given the patient's clinical condition there is concern for pneumonia given his respiratory failure. Patient is intubated and on mechanical ventilation at this time. Sputum culture pending. Continue broad-spectrum antibiotics as above. Qualifiers: Pneumonia type: due to unspecified organism Laterality: right Lung location: upper lobe of lung Qualified Code(s): J18.1 - Lobar pneumonia, unspecified organism (4) COPD exacerbation Current Visit: Yes Status: Acute Secondary to pneumonia. Patient remains on the ventilator. Continue antibiotics as above, IV Solu-Medrol, scheduled breathing treatments. (5) Ezyrr-lp-[id number] kidney injury Current Visit: Yes Status: Acute Likely related to ATN as well as ureteral extraction the setting of ureteral stone. Patient remains oliguric. Potassium mildly elevated at 4.9. Creatinine this afternoon is 3.22. Nephrology is following. Urology is also been consulted due to hydronephrosis in the setting of ureteral stone, likely will place a stent at bedside this evening. Qualifiers: Acute renal failure type: unspecified Chronic kidney disease stage: stage 3 (moderate) Qualified Code(s): N17.9 - Acute kidney failure, unspecified; N18.3 - Chronic kidney disease, stage 3 (moderate); N18.3 - Chronic kidney disease, stage 3 (moderate) (6) Ureteral stone with hydronephrosis Current Visit: Yes Status: Acute CT of the abdomen reveals a 5.6 mm in the left ureter resulting in hydronephrosis. Patient also is positive urine culture for gram-negative rods. Likely contributing to the patient's septic picture. Urology is consulted for ureteral stent. Past Med Surg Social Fam HX - Past Medical History Medical history: atrial fibrillation, COPD Psychiatric history: no psych history - Past Surgical History Surgical History: orthopedic, other - Social History Smoking Status: Never smoker Smokeless Tobacco Status: No Alcohol use: none Drug use: none - Family History Mother Living Status: Hx Family Cardiac Disorders: Yes Medications and Allergies Allopurinol [Zyloprim] 300 mg PO DAILY 12/28/16 [History] Aspirin [Lo-Dose Aspirin EC] 81 mg PO DAILY 12/28/16 [History] Cyanocobalamin (B-12) [Vitamin B12] 1,000 mcg PO DAILY 12/28/16 [History] Digoxin [Lanoxin] 250 mcg PO DAILY 12/28/16 [History] Gabapentin [Neurontin] 300 mg PO TID 12/28/16 [History] Indomethacin 50 mg PO TID 12/28/16 [History] Metoprolol [Lopressor] 25 mg PO BID 12/28/16 [History] HYDROcodone/Acet 5/325 mg [[place] 5-325 mg] 1 tab PO Q6H PRN #12 tab 02/10/17 [Rx ] 3 Allergy/AdvReac Type Severity Reaction Status Date / Time No Known Allergies Allergy Verified 02/11/17 08:14 All Systems: A 10-system review of systems was performed and is negative for pertinent findings except as documented above in the HPI. Physical Examination Vital Signs: Vital Signs, Last 4 Hours Temp Pulse Resp BP Pulse Ox 02/13/17 08:13 37 96 02/13/17 07:36 97.7 F 94 28 111/44 96 02/13/17 07:19 98.2 F 97 20 96/68 97 Results - Laboratory Findings CBC and BMP: 02/13/17 05:23 02/13/17 14:24 ABG ABG pH 7.24 pH Units (7.32-7.45) L 02/13/17 07:53 ABG pCO2 61 mmHg (35-45) H 02/13/17 07:53 ABG pO2 94 mmHg (85-104) 02/13/17 07:53 ABG O2 Saturation 96 % (95-98) 02/13/17 07:53 PT/INR, D-dimer PT 17.9 Seconds (9.4-12.1) H 02/12/17 01:00 Abnormal lab findings: Abnormal lab results WBC 17.5 K/mcL (4.3-11.1) H D 02/13/17 05:23 MCH 27.9 pg (28.0-33.3) L 02/13/17 05:23 MCHC 30.6 g/dL (31.6-35.5) L 02/13/17 05:23 RDW 19.1 % (11.5-14.5) H 02/13/17 05:23 Plt Count 134 K/mcL (140-400) L 02/13/17 05:23 MPV 13.8 fL (9.4-12.4) H 02/13/17 05:23 Band Neutrophils % 36.0 % (0-4) H 02/13/17 05:23 Metamyelocytes % 2.0 % (0) H 02/11/17 06:30 Myelocytes % 2.0 % (0) H 02/11/17 06:30 Neutrophils # 16.5 K/mcL (1.6-8.9) H 02/13/17 05:23 Lymphocytes # 0.4 K/mcL (0.6-4.6) L 02/13/17 05:23 Nucleated RBCs/100 WBC 0.1 /100 WBC (0) H 02/13/17 05:23 Toxic Granulation Present (Not Present) A 02/12/17 01:00 Platelet Estimate Slight Decrease (Normal) L 02/13/17 05:23 Large Platelets Present (Not Present) A 02/12/17 01:00 PT 17.9 Seconds (9.4-12.1) H 02/12/17 01:00 ABG pH 7.24 pH Units (7.32-7.45) L 02/13/17 07:53 ABG pCO2 61 mmHg (35-45) H 02/13/17 07:53 ABG Total CO2 28 mEq/L (20-26) H 02/13/17 07:53 ABG Base Excess -3 mEq/L (-2 to 3) L 02/13/17 07:53 Potassium 4.7 mEq/L (3.5-4.5) H 02/13/17 05:23 BUN 97 mg/dL (8-26) H D 02/13/17 05:23 Creatinine 2.72 mg/dL (0.72-1.25) H 02/13/17 05:23 Est GFR ( Amer) 29 (> 60) L 02/13/17 05:23 Est GFR (Non-Af Amer) 24 (> 60) L 02/13/17 05:23 BUN/Creatinine Ratio 36 (6-26) H 02/13/17 05:23 POC Glucose 117 (58-89) H 02/11/17 19:05 Calculated Osmolality 322 (280-300) H 02/13/17 05:23 Phosphorus 7.2 mg/dL (2.3-4.7) H 02/13/17 05:23 Total Bilirubin 4.4 mg/dL (0.2-1.2) H 02/12/17 01:00 AST 49 Units/L (5-34) H 02/12/17 01:00 B-Natriuretic Peptide 231 pg/mL (0-100) H 02/12/17 01:00 Albumin 2.2 g/dL (3.5-5.0) L 02/12/17 01:00 Globulin 4.6 g/dL (2.4-3.5) H 02/12/17 01:00 Albumin/Globulin Ratio 0.5 (1.1-2.2) L 02/12/17 01:00 Triglycerides 329 mg/dL (< 150) H 02/12/17 01:00 VLDL Cholesterol, Calc 66 mg/dL (< 31) H 02/12/17 01:00 HDL Cholesterol < 5 mg/dL (40-59) L 02/12/17 01:00 Cholesterol/HDL Ratio 27.0 (0-4.9) H 02/12/17 01:00 Urine Color [place] (Yellow) A 02/12/17 10:00 Urine Clarity Turbid (Clear) A 02/12/17 10:00 Urine Protein 30 mg/dL (Neg-Trace) H 02/12/17 10:00 Urine Blood Large (Negative) H 02/12/17 10:00 Urine Bilirubin Moderate (Negative) H 02/12/17 10:00 Urine Urobilinogen 2.0 mg/dL (Normal) H 02/12/17 10:00 Ur Leukocyte Esterase Small (Negative) H 02/12/17 10:00 Urine Microscopic RBC 15-30 per hpf (0-3) H 02/12/17 10:00 Urine Microscopic WBC 5-15 per hpf (0-3) H 02/12/17 10:00 Ur Squamous Epith Cells Many per lpf (None-Few) H 02/12/17 10:00 Urine Bacteria Moderate per hpf (None-Few) H 02/12/17 10:00 Granular Casts Moderate per lpf (None Seen) H 02/12/17 10:00 Ur Culture Indicated? YES (NO) A 02/12/17 10:00 Digoxin 2.2 ng/mL (0.8-2.0) H 02/13/17 05:23 - Clinical Findings Intake & Output: Intake & Output 02/12/17 02/13/17 02/13/17 23:59 07:59 15:59 Weight 135.443 kg Consult Discharge Plan - Plan Referrals: Simeon Lloyd Jr, MD [Primary Care Provider] - <Jaydon Wilkes W - Last Filed: 02/13/17 17:36> Date of Encounter: 02/13/17 All Systems: A 10-system review of systems was performed and is negative for pertinent findings except as documented above in the HPI. Physical Examination Vital Signs: Vital Signs, Last 4 Hours Temp Pulse Resp BP Pulse Ox 02/13/17 08:13 37 96 02/13/17 07:36 97.7 F 94 28 111/44 96 02/13/17 07:19 98.2 F 97 20 96/68 97 Results - Laboratory Findings CBC and BMP: 02/13/17 14:27 02/13/17 14:24 ABG ABG pH 7.24 pH Units (7.32-7.45) L 02/13/17 07:53 ABG pCO2 61 mmHg (35-45) H 02/13/17 07:53 ABG pO2 94 mmHg (85-104) 02/13/17 07:53 ABG O2 Saturation 96 % (95-98) 02/13/17 07:53 PT/INR, D-dimer PT 17.9 Seconds (9.4-12.1) H 02/12/17 01:00 Abnormal lab findings: Abnormal lab results WBC 17.5 K/mcL (4.3-11.1) H D 02/13/17 05:23 MCH 27.9 pg (28.0-33.3) L 02/13/17 05:23 MCHC 30.6 g/dL (31.6-35.5) L 02/13/17 05:23 RDW 19.1 % (11.5-14.5) H 02/13/17 05:23 Plt Count 134 K/mcL (140-400) L 02/13/17 05:23 MPV 13.8 fL (9.4-12.4) H 02/13/17 05:23 Band Neutrophils % 36.0 % (0-4) H 02/13/17 05:23 Metamyelocytes % 2.0 % (0) H 02/11/17 06:30 Myelocytes % 2.0 % (0) H 02/11/17 06:30 Neutrophils # 16.5 K/mcL (1.6-8.9) H 02/13/17 05:23 Lymphocytes # 0.4 K/mcL (0.6-4.6) L 02/13/17 05:23 Nucleated RBCs/100 WBC 0.1 /100 WBC (0) H 02/13/17 05:23 Toxic Granulation Present (Not Present) A 02/12/17 01:00 Platelet Estimate Slight Decrease (Normal) L 02/13/17 05:23 Large Platelets Present (Not Present) A 02/12/17 01:00 PT 17.9 Seconds (9.4-12.1) H 02/12/17 01:00 ABG pH 7.24 pH Units (7.32-7.45) L 02/13/17 07:53 ABG pCO2 61 mmHg (35-45) H 02/13/17 07:53 ABG Total CO2 28 mEq/L (20-26) H 02/13/17 07:53 ABG Base Excess -3 mEq/L (-2 to 3) L 02/13/17 07:53 Potassium 4.7 mEq/L (3.5-4.5) H 02/13/17 05:23 BUN 97 mg/dL (8-26) H D 02/13/17 05:23 Creatinine 2.72 mg/dL (0.72-1.25) H 02/13/17 05:23 Est GFR ( Amer) 29 (> 60) L 02/13/17 05:23 Est GFR (Non-Af Amer) 24 (> 60) L 02/13/17 05:23 BUN/Creatinine Ratio 36 (6-26) H 02/13/17 05:23 POC Glucose 117 (58-89) H 02/11/17 19:05 Calculated Osmolality 322 (280-300) H 02/13/17 05:23 Phosphorus 7.2 mg/dL (2.3-4.7) H 02/13/17 05:23 Total Bilirubin 4.4 mg/dL (0.2-1.2) H 02/12/17 01:00 AST 49 Units/L (5-34) H 02/12/17 01:00 B-Natriuretic Peptide 231 pg/mL (0-100) H 02/12/17 01:00 Albumin 2.2 g/dL (3.5-5.0) L 02/12/17 01:00 Globulin 4.6 g/dL (2.4-3.5) H 02/12/17 01:00 Albumin/Globulin Ratio 0.5 (1.1-2.2) L 02/12/17 01:00 Triglycerides 329 mg/dL (< 150) H 02/12/17 01:00 VLDL Cholesterol, Calc 66 mg/dL (< 31) H 02/12/17 01:00 HDL Cholesterol < 5 mg/dL (40-59) L 02/12/17 01:00 Cholesterol/HDL Ratio 27.0 (0-4.9) H 02/12/17 01:00 Urine Color [place] (Yellow) A 02/12/17 10:00 Urine Clarity Turbid (Clear) A 02/12/17 10:00 Urine Protein 30 mg/dL (Neg-Trace) H 02/12/17 10:00 Urine Blood Large (Negative) H 02/12/17 10:00 Urine Bilirubin Moderate (Negative) H 02/12/17 10:00 Urine Urobilinogen 2.0 mg/dL (Normal) H 02/12/17 10:00 Ur Leukocyte Esterase Small (Negative) H 02/12/17 10:00 Urine Microscopic RBC 15-30 per hpf (0-3) H 02/12/17 10:00 Urine Microscopic WBC 5-15 per hpf (0-3) H 02/12/17 10:00 Ur Squamous Epith Cells Many per lpf (None-Few) H 02/12/17 10:00 Urine Bacteria Moderate per hpf (None-Few) H 02/12/17 10:00 Granular Casts Moderate per lpf (None Seen) H 02/12/17 10:00 Ur Culture Indicated? YES (NO) A 02/12/17 10:00 Digoxin 2.2 ng/mL (0.8-2.0) H 02/13/17 05:23 - Clinical Findings Intake & Output: Intake & Output 02/12/17 02/13/17 02/13/17 23:59 07:59 15:59 Weight 135.443 kg - Attending Attestation I examined this patient and my medical decision-making was reviewed with the Resident Physician. I agree with the documented findings, disposition and treatment plan as described except to the extent set forth below. We independently had [id number] contact with the patient I spent 45min of Critical Care time with this patient. It involved decision making of high complexity to assess, manipulate, and support vital organ system failure and/or to prevent further life threatening deterioration of the patient' s condition. The time involved in the performance of separately reportable procedures was not counted toward critical care time. Patient seen and examined at bedside Labs, radiology, chart personally reviewed. Management was reviewed during multidisciplinary critical care rounds. 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 Head CT 02/12 no acute process Pulm: acute hypoxic hypercarbic respiratory failure requiring intubation and MV. Cont LTV strategy at risk for ARDS. Possible PNA acceptable oxygenation/ ventilation on repeat ABG. Cards: BP stable cont to monitor on Tele at risk for development of vasodiliatory shock FEN-GI: NPO for now PPI prophylaxis given Renal: RICH with obstructing renal calculi/post obstructive nephropathy. Renal and Urology assessment/recs appreciated. Monitor Electrolytes BID ID: Severe Sepsis suspect UTI possible PNA cover broadly with ABx with plan to deescalate Heme/Onc: DVT prophylaxis given Endo: Glucose Monitored Integ/MSK: Skin Care per routine ICU Nursing Protocol to prevent ulcers. Lines: All lines examined without evidence of infection : Dispo: Remain in ICU for critical Illness CODE: Full Code. updated at bedside.
[2017-02-13] MEDS ORDERED: Ringers Solution, Lactated 1,000 ML ONE (10:00)
[2017-02-13] MEDS ORDERED: Propofol 500 MG/50 ML INFUS..BTL ONE (10:09)
[2017-02-13] MEDS ORDERED: *HR* FentaNYL (PF) 100 MCG/2 ML VIAL ONE (10:24)
[2017-02-13] MEDS: Norepinephrine 4 MG in D5% in Water 250 ML IVC SCH (11:00)
--- NOTE | 2017-02-13 11:06 | Nephrology Consult Note ---
Date of Encounter: 02/13/17 Time of Encounter: 11:06 Assessment and Plan (1) Elevated serum creatinine Current Visit: Yes Status: Acute serum Cr today 2.72, rapidly worsening. GFR: 24 baseline kidney function is unknown at this time, unclear if he has underlying CKD. urinalysis showed granular casts, large amount of blood, bacteria. Etiology likely secondary to septic shock and ATN. will proceed with RICH workup. Plan: repeat Dig level tomorrow immunoelectrophoresis, k light chains, CPK, PTH, vitamin D, complement, pending. repeat BMP at 1430 today. will attempt IV hydration today with normal saline. if kidney function continues to rapidly worsen, will start dialysis either later this evening or tomorrow. re check Mg, P tomorrow. renally dose meds. avoid nephrotoxins as much as possible, follow renal protective strategy. (2) Acute respiratory failure with hypercapnia Current Visit: Yes Status: Acute currently intubated. per primary (3) Septic shock Current Visit: Yes Status: Acute per primary (4) COPD exacerbation Current Visit: Yes Status: Acute per primary (5) Congestive heart failure Current Visit: Yes Status: Acute per primary Qualifiers: Congestive heart failure type: unspecified congestive heart failure type Congestive heart failure chronicity: acute Qualified Code(s): I50.9 - Heart failure, unspecified History of Present Illness - Reason for Consult Consult date: 02/13/17 Acute Kidney Injury Requesting physician: Latanya Charles - Chief Complaint sob - History of Present Illness 61M with PMHx of abdominal wall hernia, COPD, HTN, Afib (not on any anticoagulation), CHF. Patient was admitted to [facility] yesterday with chief complaint of shortness of breath that has been rapidly progressing. He is being treated for acute CHF and sepsis secondary to pneumonia. Earlier this morning, patient's mental status was declining and patient's respiratory status was not improving with BiPAP. He was transferred to ICU and urgently intubated and is on vasopressors. Past Med Surg Social Fam HX - Past Medical History Medical history: atrial fibrillation, COPD Psychiatric history: no psych history - Past Surgical History Surgical History: orthopedic, other - Social History Smoking Status: Never smoker Smokeless Tobacco Status: No Alcohol use: none Drug use: none - Family History Mother Living Status: Hx Family Cardiac Disorders: Yes Medications and Allergies Allopurinol [Zyloprim] 300 mg PO DAILY 12/28/16 [History] Aspirin [Lo-Dose Aspirin EC] 81 mg PO DAILY 12/28/16 [History] Cyanocobalamin (B-12) [Vitamin B12] 1,000 mcg PO DAILY 12/28/16 [History] Digoxin [Lanoxin] 250 mcg PO DAILY 12/28/16 [History] Gabapentin [Neurontin] 300 mg PO TID 12/28/16 [History] Indomethacin 50 mg PO TID 12/28/16 [History] Metoprolol [Lopressor] 25 mg PO BID 12/28/16 [History] HYDROcodone/Acet 5/325 mg [[place] 5-325 mg] 1 tab PO Q6H PRN #12 tab 02/10/17 [Rx ] 3 Allergy/AdvReac Type Severity Reaction Status Date / Time No Known Allergies Allergy Verified 02/11/17 08:14 Review of Systems ROS unobtainable: due to mental status Exam - Vital Signs Vital signs: Initial Vital Signs Temp Pulse Resp BP Pulse Ox 98.1 F 86 20 93/59 92 02/11/17 06:02 02/11/17 06:02 02/11/17 06:02 02/11/17 06:02 02/11/17 06:02 Vital Signs - Last 8 Hours Temp Pulse Resp BP Pulse Ox 02/13/17 08:13 37 96 02/13/17 07:36 97.7 F 94 28 111/44 96 02/13/17 07:19 98.2 F 97 20 96/68 97 02/13/17 03:41 98.6 F 82 19 100/65 99 02/13/17 03:35 24 96 Intake and Output 02/12/17 02/13/17 02/13/17 23:59 07:59 15:59 Other: # Voids 1 Weight 135.443 kg 135 kg Patient Weight 02/13/17 23:59 Weight 135 kg - General Appearance General appearance: well-developed, well-nourished, obese, moderate distress Exam: intermittently alert, poor historian, does not answer questions properly. Neck: no JVD Additional Comments: decreased breath sounds due to body habitus. rales noted diffusely. Cardiology: no murmurs, no rub, no gallops, no edema, regular rate, regular rhythm, normal S1, normal S2 Gastrointestinal: normoactive bowel sounds Additional Comments: distended, tender to palpation. large abdominal wall hernia present in right upper quadrant. Integumentary: no rash, warm and dry Additional Comments: patient not able to answer questions, appears confused. Musculoskeletal: no deformities, no erythema, no cyanosis, no clubbing Results - Lab Results 02/13/17 05:23 02/13/17 05:23 Most recent lab results ABG pH 7.24 pH Units (7.32-7.45) L 02/13/17 07:53 ABG pCO2 61 mmHg (35-45) H 02/13/17 07:53 ABG pO2 94 mmHg (85-104) 02/13/17 07:53 ABG HCO3 26 mEq/L (21-27) 02/13/17 07:53 ABG O2 Saturation 96 % (95-98) 02/13/17 07:53 Calcium 8.7 mg/dL (8.6-10.8) 02/13/17 05:23 Phosphorus 7.2 mg/dL (2.3-4.7) H 02/13/17 05:23 Magnesium 2.5 mg/dL (1.6-2.6) 02/13/17 05:23 Consult Discharge Plan - Plan Referrals: Simeon Lloyd Jr, MD [Primary Care Provider] -
[2017-02-13 11:25] LABS: ABG Base Excess -5 mEq/L (-2 to 3); ABG HCO3 25 mEq/L (21-27); ABG Oxygen Saturation 94 % (95-98); ABG PCO2 64 mmHg (35-45); ABG PO2 91 mmHg (85-104); ABG TCO2 27 mEq/L (20-26); Blood Gas Modality PRVC; Blood Gas PEEP 5 cm H2O; Blood Gas Respiration Rate 16; Blood Gas VT 500 cc
[2017-02-13] MEDS ORDERED: Vancomycin 1 EACH in D5% in Water 250 ML IVPB SCH (12:00)
[2017-02-13] MEDS: FentaNYL (PF) 1,000 MCG in 0.9 % Sodium Chloride 80 ML IVC SCH (12:08)
[2017-02-13 12:51] LABS: ABG Base Excess -5 mEq/L (-2 to 3); ABG HCO3 23 mEq/L (21-27); ABG Oxygen Saturation 90 % (95-98); ABG PCO2 54 mmHg (35-45); ABG PH 7.24 pH Units (7.32-7.45); ABG PO2 71 mmHg (85-104); ABG TCO2 25 mEq/L (20-26); Blood Gas Modality PRVC; Blood Gas PEEP 8 cm H2O; Blood Gas Respiration Rate 22; Blood Gas VT 500 cc
--- NOTE | 2017-02-13 14:30 | Procedure Note ---
<Vinnie Dumont - Last Filed: 02/13/17 14:24> Date of procedure: 02/13/17 Pre-op diagnosis: Respiratory failure Post-op diagnosis: same Procedure: Endotracheal intubation: Verbal consent was obtained from the . The patient was transferred to the intensive care unit on noninvasive positive pressure ventilation. The patient was preoxygenated using a bag valve mask. 100 mg of propofol were given for sedation. A size 4 C Mac video laryngoscope was inserted into the oropharynx and a grade 2 view of the cords was obtained. A 7.5 ET tube was visualized passing through the cords and advanced to the 22 cm georgina. Colorimetric change was observed and bilateral breath sounds are present. The patient tolerated the procedure well, there are no immediate complications. Chest x-ray showed ET tube in good position. Anesthesia: IV sedation (100 mg propofol) Surgeon: Vinnie Dumont Pathology: none sent Condition: critical Disposition: ICU <Jaydon Wilkes W - Last Filed: 02/13/17 17:18> - Attending Attestation I was present and supervised the entire procedure as outlined above by Dr. Dixon who performed the procedure skillfully
[2017-02-13] MEDS ORDERED: Lacri-Lube 3.5 GM TUBE BOTH EYES PRN (14:32)
[2017-02-13 15:25] LABS: Hepatitis B Surface Antibody 0.25 mIU/mL; Hepatitis B Surface Antigen Nonreactive (Nonreactive)
[2017-02-13 15:36] LABS: Calcium 8.4 mg/dL (8.6-10.8); Potassium 4.9 mEq/L (3.5-4.5)
[2017-02-13 16:14] LABS: Hemoglobin 12.1 g/dL (12.9-16.9); Immature Granulocytes % 2.1 % (0-4); Monocytes % 3.4 %; Red Cell Distribution Width 19.2 % (11.5-14.5)
[2017-02-13 16:16] LABS: Basophils # 0.1 K/mcL (0.0-0.2); Basophils % 0.5 %; Hematocrit 39.1 % (37.5-50.1); Immature Platelets 17.3 % (1.1-6.1); Lymphocytes # 0.3 K/mcL (0.6-4.6); Lymphocytes % 2.3 %; Mean Corpuscular HGB Conc 30.9 g/dL (31.6-35.5); Mean Corpuscular Hemoglobin 28.5 pg (28.0-33.3); Monocytes # 0.5 K/mcL (0.0-1.3); Neutrophils # 13.6 K/mcL (1.6-8.9); Nucleated Red Blood Cells 0.3 /100 WBC (0); Platelet Count 113 K/mcL (140-400); Red Blood Count 4.25 M/mcL (4.19-5.50); Segmented Neutrophils % 91.7 %
[2017-02-13 16:44] LABS: Platelet Estimate Decreased (Normal)
[2017-02-13] MEDS: Aspirin Enteric Coated 81 MG Tablet PO SCH (17:34)
[2017-02-13] MEDS: Lacri-Lube 3.5 GM TUBE BOTH EYES SCH ×2 (17:43→21:54)
--- NOTE | 2017-02-13 19:11 | Urology - Consult Note ---
Date of Encounter: 02/13/17 Time of Encounter: 19:09 - Assessment and Plan (1) Ureteral stone with hydronephrosis Current Visit: Yes Status: Acute Assessment and plan: Please see procedure note. Attempt at ureteral stent placement at the bedside was unsuccessful. Discussed options with the patient's family. We'll proceed with nephrostomy tube placement in a.m. with interventional radiology. I called and discussed case with interventional radiology and they will plan for the first case. I feel this is reasonable to wait 12 hours as he has had heparin today and although his condition is critical he appears stable. I discussed proceeding with the operating room tonight and attempting a ureteroscopy with stent placement but I was concerned it would cause too much manipulation and may still fail. (2) Sepsis Current Visit: Yes Status: Acute Qualifiers: Sepsis type: sepsis due to unspecified organism Qualified Code(s): A41.9 - Sepsis, unspecified organism Urology CN:HPI Consult date: 02/13/17 Reason for consult Urology: Hydronephrosis History of present illness: 61-year-old male. ICU intubated. Positive urinary tract infection. 5 mm proximal ureteral stone with severe hydronephrosis. Likely urosepsis. Past Med Surg Social Fam HX - Past Medical History Medical history: atrial fibrillation, COPD Psychiatric history: no psych history - Past Surgical History Surgical History: orthopedic, other - Social History Smoking Status: Never smoker Smokeless Tobacco Status: No Alcohol use: none Drug use: none - Family History Mother Living Status: Hx Family Cardiac Disorders: Yes Medications and Allergies Allopurinol [Zyloprim] 300 mg PO DAILY 12/28/16 [History] Aspirin [Lo-Dose Aspirin EC] 81 mg PO DAILY 12/28/16 [History] Cyanocobalamin (B-12) [Vitamin B12] 1,000 mcg PO DAILY 12/28/16 [History] Digoxin [Lanoxin] 250 mcg PO DAILY 12/28/16 [History] Gabapentin [Neurontin] 300 mg PO TID 12/28/16 [History] Indomethacin 50 mg PO TID 12/28/16 [History] Metoprolol [Lopressor] 25 mg PO BID 12/28/16 [History] HYDROcodone/Acet 5/325 mg [[place] 5-325 mg] 1 tab PO Q6H PRN #12 tab 02/10/17 [Rx ] 3 Allergy/AdvReac Type Severity Reaction Status Date / Time No Known Allergies Allergy Verified 02/11/17 08:14 Review of Systems ROS unobtainable: due to endotracheal tube Exam Initial Vital Signs Temp Pulse Resp BP Pulse Ox 98.1 F 86 20 93/59 92 02/11/17 06:02 02/11/17 06:02 02/11/17 06:02 02/11/17 06:02 02/11/17 06:02 - General physical appearance Present: no distress, chronically ill, obese - Eyes Present: other - ENT Present: normal nares - Neck Present: no masses - Respiratory Present: other (Intubated) - Cardiovascular Cardiovascular exam IM: RRR - Abdomen Abdomen: Present: soft - Genitourinary normal penis with no external lesions (Hidden penis behind adipose tissue) Testicles: Present: normal size - Integumentary Present: no rash - Neurologic Absent: normal coordination, disoriented, confused - Musculoskeletal Absent: normal gait Urology Results - Labs 02/13/17 14:27 02/13/17 14:24 Abnormal lab results WBC 14.8 K/mcL (4.3-11.1) H 02/13/17 14:27 Hgb 12.1 g/dL (12.9-16.9) L 02/13/17 14:27 MCHC 30.9 g/dL (31.6-35.5) L 02/13/17 14:27 RDW 19.2 % (11.5-14.5) H 02/13/17 14:27 Plt Count 113 K/mcL (140-400) L 02/13/17 14:27 Band Neutrophils % 36.0 % (0-4) H 02/13/17 05:23 Metamyelocytes % 2.0 % (0) H 02/11/17 06:30 Myelocytes % 2.0 % (0) H 02/11/17 06:30 Neutrophils # 13.6 K/mcL (1.6-8.9) H 02/13/17 14:27 Lymphocytes # 0.3 K/mcL (0.6-4.6) L 02/13/17 14:27 Nucleated RBCs/100 WBC 0.3 /100 WBC (0) H 02/13/17 14:27 Toxic Granulation Present (Not Present) A 02/12/17 01:00 Platelet Estimate Decreased (Normal) L 02/13/17 14:27 Large Platelets Present (Not Present) A 02/12/17 01:00 Immature Plt Fraction 17.3 % (1.1-6.1) H 02/13/17 14:27 PT 17.9 Seconds (9.4-12.1) H 02/12/17 01:00 ABG pH 7.24 pH Units (7.32-7.45) L 02/13/17 12:47 ABG pCO2 54 mmHg (35-45) H 02/13/17 12:47 ABG pO2 71 mmHg (85-104) L 02/13/17 12:47 ABG O2 Saturation 90 % (95-98) L 02/13/17 12:47 ABG Base Excess -5 mEq/L (-2 to 3) L 02/13/17 12:47 Potassium 4.9 mEq/L (3.5-4.5) H 02/13/17 14:24 BUN 110 mg/dL (8-26) H 02/13/17 14:24 Creatinine 3.22 mg/dL (0.72-1.25) H 02/13/17 14:24 Est GFR ( Amer) 24 (> 60) L 02/13/17 14:24 Est GFR (Non-Af Amer) 20 (> 60) L 02/13/17 14:24 BUN/Creatinine Ratio 34 (6-26) H 02/13/17 14:24 Glucose 127 mg/dL (70-99) H 02/13/17 14:24 POC Glucose 102 (58-89) H 02/13/17 09:52 Calculated Osmolality 324 (280-300) H 02/13/17 14:24 Calcium 8.4 mg/dL (8.6-10.8) L 02/13/17 14:24 Phosphorus 7.2 mg/dL (2.3-4.7) H 02/13/17 05:23 Total Bilirubin 4.4 mg/dL (0.2-1.2) H 02/12/17 01:00 AST 49 Units/L (5-34) H 02/12/17 01:00 Creatine Kinase 605 Units/L (30-200) H 02/13/17 07:57 B-Natriuretic Peptide 231 pg/mL (0-100) H 02/12/17 01:00 Albumin 2.2 g/dL (3.5-5.0) L 02/12/17 01:00 Globulin 4.6 g/dL (2.4-3.5) H 02/12/17 01:00 Albumin/Globulin Ratio 0.5 (1.1-2.2) L 02/12/17 01:00 Triglycerides 329 mg/dL (< 150) H 02/12/17 01:00 VLDL Cholesterol, Calc 66 mg/dL (< 31) H 02/12/17 01:00 HDL Cholesterol < 5 mg/dL (40-59) L 02/12/17 01:00 Cholesterol/HDL Ratio 27.0 (0-4.9) H 02/12/17 01:00 Urine Color [place] (Yellow) A 02/12/17 10:00 Urine Clarity Turbid (Clear) A 02/12/17 10:00 Urine Protein 30 mg/dL (Neg-Trace) H 02/12/17 10:00 Urine Blood Large (Negative) H 02/12/17 10:00 Urine Bilirubin Moderate (Negative) H 02/12/17 10:00 Urine Urobilinogen 2.0 mg/dL (Normal) H 02/12/17 10:00 Ur Leukocyte Esterase Small (Negative) H 02/12/17 10:00 Urine Microscopic RBC 15-30 per hpf (0-3) H 02/12/17 10:00 Urine Microscopic WBC 5-15 per hpf (0-3) H 02/12/17 10:00 Ur Squamous Epith Cells Many per lpf (None-Few) H 02/12/17 10:00 Urine Bacteria Moderate per hpf (None-Few) H 02/12/17 10:00 Granular Casts Moderate per lpf (None Seen) H 02/12/17 10:00 Ur Culture Indicated? YES (NO) A 02/12/17 10:00 Digoxin 2.2 ng/mL (0.8-2.0) H 02/13/17 05:23 Diabetes panel 02/13/17 02/13/17 Range/Units 05:23 14:24 Sodium 141 139 (136-145) mEq/L Potassium 4.7 H 4.9 H (3.5-4.5) mEq/L Chloride 104 103 (98-109) mEq/L Carbon Dioxide 22 20 (19-29) mEq/L BUN 97 H D 110 H (8-26) mg/dL Creatinine 2.72 H 3.22 H (0.72-1.25) mg/dL Glucose 97 127 H (70-99) mg/dL Calcium 8.7 8.4 L (8.6-10.8) mg/dL Calcium panel 02/13/17 02/13/17 Range/Units 05:23 14:24 Calcium 8.7 8.4 L (8.6-10.8) mg/dL Phosphorus 7.2 H (2.3-4.7) mg/dL Pituitary panel 02/13/17 02/13/17 Range/Units 05:23 14:24 Sodium 141 139 (136-145) mEq/L Potassium 4.7 H 4.9 H (3.5-4.5) mEq/L Chloride 104 103 (98-109) mEq/L Carbon Dioxide 22 20 (19-29) mEq/L BUN 97 H D 110 H (8-26) mg/dL Creatinine 2.72 H 3.22 H (0.72-1.25) mg/dL Glucose 97 127 H (70-99) mg/dL Calcium 8.7 8.4 L (8.6-10.8) mg/dL Adrenal panel 02/13/17 02/13/17 Range/Units 05:23 14:24 Sodium 141 139 (136-145) mEq/L Potassium 4.7 H 4.9 H (3.5-4.5) mEq/L Chloride 104 103 (98-109) mEq/L Carbon Dioxide 22 20 (19-29) mEq/L BUN 97 H D 110 H (8-26) mg/dL Creatinine 2.72 H 3.22 H (0.72-1.25) mg/dL Glucose 97 127 H (70-99) mg/dL Calcium 8.7 8.4 L (8.6-10.8) mg/dL All other labs normal. Consult Discharge Plan - Plan Referrals: Simeon Lloyd Jr, MD [Primary Care Provider] -
[2017-02-13] MEDS: Chlorhexidine Rinse 15 ML MOUTHWASH MM SCH (21:54)
[2017-02-13 23:31] LABS: Acinetobacter baumannii by PCR Not Detected (Not Detect); Candida albicans by PCR Not Detected (Not Detect); Candida glabrata by PCR Not Detected (Not Detect); Candida krusei by PCR Not Detected (Not Detect); Candida parapsilosis by PCR Not Detected (Not Detect); Candida tropicalis by PCR Not Detected (Not Detect); Enterococcus by PCR Not Detected (Not Detect); Escherichia coli by PCR Not Detected (Not Detect); Klebsiella oxytoca by PCR Not Detected (Not Detect); Klebsiella pneumoniae by PCR Not Detected (Not Detect); Pseudomonas aeruginosa by PCR Not Detected (Not Detect); Serratia marcescens by PCR Not Detected (Not Detect); Staphylococcus aureus by PCR ***DETECTED*** (Not Detect); Streptococcus agalactiae(B)PCR Not Detected (Not Detect); Streptococcus by PCR Not Detected (Not Detect); Streptococcus pneumoniae PCR Not Detected (Not Detect); Streptococcus pyogenes (A) PCR Not Detected (Not Detect); blaKPC Carbapenem-Resist Gene Not Detected (Not Detect); mecA Methicillin-Resist Gene ***DETECTED*** (Not Detect); vanA/B Vancomycin-Resist Genes Not Detected (Not Detect)
[2017-02-14] MEDS: Piperacillin/Tazobactam 3.375 GM in D5% in Water 50 ML IVPB SCH ×4 (00:20→23:39)
[2017-02-14] MEDS: methylPREDNISolone 125 MG/2 ML VIAL IVP SCH ×2 (00:21→08:26)
[2017-02-14] MEDS: Lacri-Lube 3.5 GM TUBE BOTH EYES SCH ×7 (00:21→23:36)
[2017-02-14] MEDS ORDERED: 0.9 % Sodium Chloride 1,000 ML IVC ONE (02:25)
[2017-02-14] MEDS ORDERED: 0.9 % Sodium Chloride 1,000 ML ONE ×2 (02:31→10:50)
[2017-02-14] MEDS: Ipratropium/Albuterol Neb 3 ML IH SCH ×6 (03:53→23:41)
[2017-02-14 03:54] LABS: Basophils % 0.3 %
[2017-02-14 03:56] LABS: Hematocrit 34.7 % (37.5-50.1); Immature Granulocytes % 2.3 % (0-4); Immature Platelets 13.8 % (1.1-6.1); Lymphocytes # 0.6 K/mcL (0.6-4.6); Lymphocytes % 4.4 %; Mean Corpuscular HGB Conc 31.7 g/dL (31.6-35.5); Mean Corpuscular Hemoglobin 28.7 pg (28.0-33.3); Mean Corpuscular Volume 90.6 fL (83.0-100.0); Mean Platelet Volume 13.6 fL (9.4-12.4); Monocytes # 0.6 K/mcL (0.0-1.3); Monocytes % 4.3 %; Neutrophils # 12.2 K/mcL (1.6-8.9); Nucleated Red Blood Cells 0.2 /100 WBC (0); Red Blood Count 3.83 M/mcL (4.19-5.50); Red Cell Distribution Width 19.2 % (11.5-14.5); Segmented Neutrophils % 88.7 %
[2017-02-14 04:00] LABS: Platelet Count 92 K/mcL (140-400)
[2017-02-14 04:03] LABS: Ionized Calcium 0.99 mmol/L (1.15-1.35)
[2017-02-14 04:10] LABS: Albumin/Globulin Ratio 0.4 (1.1-2.2); Bilirubin,Direct 3.5 mg/dL (0.0-0.5); Bilirubin,Indirect 0.8 mg/dL (0.0-1.2); Bilirubin,Total 4.3 mg/dL (0.2-1.2); Calcium 7.6 mg/dL (8.6-10.8); Globulin 3.9 g/dL (2.4-3.5); Magnesium 2.6 mg/dL (1.6-2.6); Phosphorous 6.4 mg/dL (2.3-4.7)
[2017-02-14 04:12] LABS: Albumin 1.4 g/dL (3.5-5.0); Total Protein 5.3 g/dL (6.0-8.3)
[2017-02-14 04:35] LABS: ABG Base Excess -3 mEq/L (-2 to 3); ABG HCO3 23 mEq/L (21-27); ABG Oxygen Saturation 99 % (95-98); ABG PCO2 42 mmHg (35-45); ABG PH 7.35 pH Units (7.32-7.45); ABG PO2 166 mmHg (85-104); ABG TCO2 24 mEq/L (20-26); Blood Gas Modality ASSIST CONTROL; Blood Gas PEEP 8 cm H2O; Blood Gas Respiration Rate 26; Blood Gas VT 500 cc
[2017-02-14 05:01] LABS: Platelet Estimate Decreased (Normal); Tear Drop Cells 1+ (Not Present)
[2017-02-14] MEDS ORDERED: Vancomycin 2,000 MG in D5% in Water 500 ML IVPB ONE (06:00)
[2017-02-14] MEDS ORDERED: Calcium Gluconate 2,000 MG in 0.9 % Sodium Chloride 50 ML IVPB ONE (07:12)
[2017-02-14] MEDS ORDERED: Insulin Human Regular 10 UNIT in 0.9 % Sodium Chloride 10 ML IV ONE (07:31)
[2017-02-14] MEDS ORDERED: *HR* Dextrose 50 % in Water (Syg) 50 ML SYRINGE IVP ONE (07:31)
--- NOTE | 2017-02-14 07:40 | Pulmonology Progress Note ---
<Jaydon Wilkes W - Last Filed: 02/14/17 10:56> Date of Encounter: 02/14/17 Objective PUL Vital signs: Last Vital Signs Temp 98.2 F 02/14/17 04:09 Pulse 87 02/14/17 06:00 Resp 26 02/14/17 07:48 BP 94/59 02/14/17 07:48 Pulse Ox 90 02/14/17 07:48 Ventilator Settings Ventilator Settings: Ventilator Settings, Last 8 Hours Ventilator Mode VC+ Ventilator Mode VC+ Ventilator Mode VC+ Ventilator Mode VC+ Ventilator Mode VC+ Ventilator Tidal Volume 500 Setting Ventilator Tidal Volume 500 Setting Ventilator Tidal Volume 500 Setting Ventilator Tidal Volume 500 Setting Ventilator Tidal Volume 500 Setting Ventilator Respiratory Rate 26 Setting Ventilator Respiratory Rate 26 Setting Ventilator Respiratory Rate 26 Setting Ventilator Respiratory Rate 26 Setting Ventilator Respiratory Rate 26 Setting Actual Respiratory Rate 26 Actual Respiratory Rate 26 Actual Respiratory Rate 26 Actual Respiratory Rate 26 Positive End Expiratory 8 Pressure Positive End Expiratory 8 Pressure Positive End Expiratory 8 Pressure Positive End Expiratory 8 Pressure Positive End Expiratory 8 Pressure Peak Inspiratory Airway 25 Pressure Peak Inspiratory Airway 31 Pressure Peak Inspiratory Airway 22 Pressure Peak Inspiratory Airway 27 Pressure Results - Laboratory Findings CBC and BMP: 02/14/17 03:40 02/14/17 03:40 ABG ABG pH 7.35 pH Units (7.32-7.45) 02/14/17 04:31 ABG pCO2 42 mmHg (35-45) 02/14/17 04:31 ABG pO2 166 mmHg (85-104) H 02/14/17 04:31 ABG O2 Saturation 99 % (95-98) H 02/14/17 04:31 PT/INR, D-dimer PT 17.9 Seconds (9.4-12.1) H 02/12/17 01:00 Abnormal lab findings: Abnormal lab results WBC 13.7 K/mcL (4.3-11.1) H 02/14/17 03:40 RBC 3.83 M/mcL (4.19-5.50) L 02/14/17 03:40 Hgb 11.0 g/dL (12.9-16.9) L 02/14/17 03:40 Hct 34.7 % (37.5-50.1) L 02/14/17 03:40 RDW 19.2 % (11.5-14.5) H 02/14/17 03:40 Plt Count 92 K/mcL (140-400) L 02/14/17 03:40 MPV 13.6 fL (9.4-12.4) H 02/14/17 03:40 Band Neutrophils % 36.0 % (0-4) H 02/13/17 05:23 Metamyelocytes % 2.0 % (0) H 02/11/17 06:30 Myelocytes % 2.0 % (0) H 02/11/17 06:30 Neutrophils # 12.2 K/mcL (1.6-8.9) H 02/14/17 03:40 Nucleated RBCs/100 WBC 0.2 /100 WBC (0) H 02/14/17 03:40 Toxic Granulation Present (Not Present) A 02/12/17 01:00 Platelet Estimate Decreased (Normal) L 02/14/17 03:40 Large Platelets Present (Not Present) A 02/12/17 01:00 Immature Plt Fraction 13.8 % (1.1-6.1) H 02/14/17 03:40 Tear Drop Cells 1+ (Not Present) A 02/14/17 03:40 PT 17.9 Seconds (9.4-12.1) H 02/12/17 01:00 ABG pO2 166 mmHg (85-104) H 02/14/17 04:31 ABG O2 Saturation 99 % (95-98) H 02/14/17 04:31 ABG Base Excess -3 mEq/L (-2 to 3) L 02/14/17 04:31 Potassium 5.0 mEq/L (3.5-4.5) H 02/14/17 03:40 BUN 124 mg/dL (8-26) H 02/14/17 03:40 Creatinine 4.12 mg/dL (0.72-1.25) H 02/14/17 03:40 Est GFR ( Amer) 18 (> 60) L 02/14/17 03:40 Est GFR (Non-Af Amer) 15 (> 60) L 02/14/17 03:40 BUN/Creatinine Ratio 30 (6-26) H 02/14/17 03:40 Glucose 116 mg/dL (70-99) H 02/14/17 03:40 POC Glucose 102 (58-89) H 02/13/17 09:52 Calculated Osmolality 337 (280-300) H 02/14/17 03:40 Calcium 7.6 mg/dL (8.6-10.8) L 02/14/17 03:40 Ionized Calcium 0.99 mmol/L (1.15-1.35) L 02/14/17 03:40 Phosphorus 6.4 mg/dL (2.3-4.7) H 02/14/17 03:40 Total Bilirubin 4.3 mg/dL (0.2-1.2) H 02/14/17 03:40 Direct Bilirubin 3.5 mg/dL (0.0-0.5) H 02/14/17 03:40 AST 76 Units/L (5-34) H 02/14/17 03:40 Creatine Kinase 605 Units/L (30-200) H 02/13/17 07:57 B-Natriuretic Peptide 231 pg/mL (0-100) H 02/12/17 01:00 Serum Total Protein 5.3 g/dL (6.0-8.3) L D 02/14/17 03:40 Albumin 1.4 g/dL (3.5-5.0) L D 02/14/17 03:40 Globulin 3.9 g/dL (2.4-3.5) H 02/14/17 03:40 Albumin/Globulin Ratio 0.4 (1.1-2.2) L 02/14/17 03:40 Triglycerides 329 mg/dL (< 150) H 02/12/17 01:00 VLDL Cholesterol, Calc 66 mg/dL (< 31) H 02/12/17 01:00 HDL Cholesterol < 5 mg/dL (40-59) L 02/12/17 01:00 Cholesterol/HDL Ratio 27.0 (0-4.9) H 02/12/17 01:00 PTH Intact 339.7 pg/ml (8.5-72.5) H 02/14/17 03:40 Urine Color [place] (Yellow) A 02/12/17 10:00 Urine Clarity Turbid (Clear) A 02/12/17 10:00 Urine Protein 30 mg/dL (Neg-Trace) H 02/12/17 10:00 Urine Blood Large (Negative) H 02/12/17 10:00 Urine Bilirubin Moderate (Negative) H 02/12/17 10:00 Urine Urobilinogen 2.0 mg/dL (Normal) H 02/12/17 10:00 Ur Leukocyte Esterase Small (Negative) H 02/12/17 10:00 Urine Microscopic RBC 15-30 per hpf (0-3) H 02/12/17 10:00 Urine Microscopic WBC 5-15 per hpf (0-3) H 02/12/17 10:00 Ur Squamous Epith Cells Many per lpf (None-Few) H 02/12/17 10:00 Urine Bacteria Moderate per hpf (None-Few) H 02/12/17 10:00 Granular Casts Moderate per lpf (None Seen) H 02/12/17 10:00 Ur Culture Indicated? YES (NO) A 02/12/17 10:00 Digoxin 2.3 ng/mL (0.8-2.0) H 02/14/17 03:40 Staphylococcus sp PCR DETECTED (Not Detect) A 02/13/17 08:17 Staph aureus (PCR) DETECTED (Not Detect) A 02/13/17 08:17 mecA-Methicil Res Gene DETECTED (Not Detect) A 02/13/17 08:17 - Microbiology Findings Microbiology Findings: Microbiology, Last 48 Hours 02/13/17 08:17 Blood Culture - Preliminary Peripheral Venipuncture Gram Positive Cocci 02/13/17 08:17 Blood Culture - Preliminary Peripheral Venipuncture Gram Positive Cocci 02/12/17 10:00 Urine Culture - Preliminary Urine,Clean Catch Gram Negative Waqar - Clinical Findings Intake & Output: Intake & Output 02/13/17 02/14/17 02/14/17 23:59 07:59 15:59 Intake Total 201 / 201 99 / 99 90 / 90 Output Total 300 / 300 25 / 25 0 / 0 Balance -99 / -99 74 / 74 90 / 90 Weight 135.31 kg Consult Discharge Plan - Plan Referrals: Simeon Lloyd Jr, MD [Primary Care Provider] - - Attending Attestation I examined this patient and my medical decision-making was reviewed with the Resident Physician. I agree with the documented findings, disposition and treatment plan as described except to the extent set forth below. We independently had [id number] contact with the patient Patient seen and examined at bedside Labs, radiology, chart personally reviewed. Management was reviewed during multidisciplinary critical care rounds. 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 Cards: MAP >65 cont to monitor on tele ECHO today for possible endocarditis. Afib rate controlled. FEN-GI: Start enteral nutrition Renal: Anuric RICH requiring POLYETHYLENE COMBINER monitor electrolytes per protocol appreciate nephrology recs. mild hyperkalemia treated today. right obstructive nephropathy s/p Urological stenting appreciate urological evaluation ID: Klebsiella PNA UTI and MRSA bacteremia cont antimicrobials. Check TTE with likely need for REBECA, Heme/Onc: DVT prophylaxis given Endo: Glucose Monitored Integ/MSK: Skin Care per routine ICU Nursing Protocol to prevent ulcers. Lines: All lines examined without evidence of infection : Dispo: Remain in ICU CODE: Full Code and son updated at bedside. <Vinnie Dumont - Last Filed: 02/14/17 14:02> Date of Encounter: 02/14/17 Time of Encounter: 07:40 Assessment and Plan (1) Acute respiratory failure with hypercapnia Current Visit: Yes Status: Acute Likely related to severe sepsis. Patient remains intubated on mechanical ventilation. ABG showed adequate oxygenation and ventilation. (2) Sepsis Current Visit: Yes Status: Acute Severe sepsis secondary to bacteremia and UTI in the setting of urinary stone. Blood cultures are positive preliminary for MRSA, urine culture shows Klebsiella. Patient is on broad-spectrum antibiotics with vancomycin and Zosyn. Repeat blood cultures are pending. TTE on admission showed no evidence of vegetation, if repeat cultures remain positive will obtain REBECA Qualifiers: Sepsis type: sepsis due to unspecified organism Qualified Code(s): A41.9 - Sepsis, unspecified organism (3) Pneumonia Current Visit: Yes Status: Acute Possible. Patient is on large spectrum antibiotics. Blood cultures as above. Obtain sputum culture. Qualifiers: Pneumonia type: due to unspecified organism Laterality: right Lung location: upper lobe of lung Qualified Code(s): J18.1 - Lobar pneumonia, unspecified organism (4) COPD exacerbation Current Visit: Yes Status: Acute Unlikely. Will continue breathing treatments, and antibiotics. Stop steroids. (5) [id number] kidney injury Current Visit: Yes Status: Acute Rapidly progressing. Likely multifactorial in the setting of obstructive uropathy due to kidney stone as well as possible ATN. Potassium slowly rising. Nephrology is following and hemodialysis will be instituted today. Continue monitor electrolytes and urine output. Qualifiers: Acute renal failure type: unspecified Chronic kidney disease stage: stage 3 (moderate) Qualified Code(s): N17.9 - Acute kidney failure, unspecified; N18.3 - Chronic kidney disease, stage 3 (moderate); N18.3 - Chronic kidney disease, stage 3 (moderate) (6) Ureteral stone with hydronephrosis Current Visit: Yes Status: Acute Likely more a chronic issue given right hydronephrosis with renal atrophy. Urology attempted to place a stent at bedside that was unsuccessful. Patient had right nephrostomy tube placement by interventional radiology this morning to relieve obstruction. (7) Effusion of sternoclavicular joint Current Visit: Yes Status: Acute CT scan of the chest revealed displacement of the sternoclavicular joint with mild fluid collection. No gas to indicate infection. Patient would benefit from an orthopedic consult once his critical illness is more stable. Patient does have bacteremia of an unclear source at this time, it is unlikely that he has a septic sternoclavicular joint given his likely pneumonia and UTI however if we are unable to locate a source of his MRSA infection he may need a joint aspiration for culture. Subjective Principal diagnosis: Sepsis Interval history: Patient seen and examined at bedside. Patient remains intubated and mildly sedated. He does wake up and move all 4 extremities spontaneously however he does not follow commands at this time. He does not appear to be in any acute distress. Objective PUL Vital signs: Last Vital Signs Temp 98.2 F 02/14/17 04:09 Pulse 87 02/14/17 06:00 Resp 26 02/14/17 06:00 BP 105/65 02/14/17 06:00 Pulse Ox 94 02/14/17 06:00 General appearance: no acute distress ENT: oropharynx moist Auscultation: bilateral: diminished breath sounds Cardiovascular: irregular rhythm (Rate controlled) Gastrointestinal: normoactive bowel sounds, soft, non-tender, non-distended, other (Large ventral hernia present, no evidence of incarceration) Extremities: no cyanosis, no clubbing, edema (1+ bilaterally) unable to assess due to mental status Ventilator Settings Ventilator Settings: Ventilator Settings, Last 8 Hours Ventilator Mode VC+ Ventilator Mode VC+ Ventilator Mode VC+ Ventilator Mode VC+ Ventilator Tidal Volume 500 Setting Ventilator Tidal Volume 500 Setting Ventilator Tidal Volume 500 Setting Ventilator Tidal Volume 500 Setting Ventilator Respiratory Rate 26 Setting Ventilator Respiratory Rate 26 Setting Ventilator Respiratory Rate 26 Setting Ventilator Respiratory Rate 26 Setting Actual Respiratory Rate 26 Actual Respiratory Rate 26 Actual Respiratory Rate 26 Positive End Expiratory 8 Pressure Positive End Expiratory 8 Pressure Positive End Expiratory 8 Pressure Positive End Expiratory 8 Pressure Peak Inspiratory Airway 31 Pressure Peak Inspiratory Airway 22 Pressure Peak Inspiratory Airway 27 Pressure Results - Laboratory Findings CBC and BMP: 02/14/17 03:40 02/14/17 03:40 ABG ABG pH 7.35 pH Units (7.32-7.45) 02/14/17 04:31 ABG pCO2 42 mmHg (35-45) 02/14/17 04:31 ABG pO2 166 mmHg (85-104) H 02/14/17 04:31 ABG O2 Saturation 99 % (95-98) H 02/14/17 04:31 PT/INR, D-dimer PT 17.9 Seconds (9.4-12.1) H 02/12/17 01:00 Abnormal lab findings: Abnormal lab results WBC 13.7 K/mcL (4.3-11.1) H 02/14/17 03:40 RBC 3.83 M/mcL (4.19-5.50) L 02/14/17 03:40 Hgb 11.0 g/dL (12.9-16.9) L 02/14/17 03:40 Hct 34.7 % (37.5-50.1) L 02/14/17 03:40 RDW 19.2 % (11.5-14.5) H 02/14/17 03:40 Plt Count 92 K/mcL (140-400) L 02/14/17 03:40 MPV 13.6 fL (9.4-12.4) H 02/14/17 03:40 Band Neutrophils % 36.0 % (0-4) H 02/13/17 05:23 Metamyelocytes % 2.0 % (0) H 02/11/17 06:30 Myelocytes % 2.0 % (0) H 02/11/17 06:30 Neutrophils # 12.2 K/mcL (1.6-8.9) H 02/14/17 03:40 Nucleated RBCs/100 WBC 0.2 /100 WBC (0) H 02/14/17 03:40 Toxic Granulation Present (Not Present) A 02/12/17 01:00 Platelet Estimate Decreased (Normal) L 02/14/17 03:40 Large Platelets Present (Not Present) A 02/12/17 01:00 Immature Plt Fraction 13.8 % (1.1-6.1) H 02/14/17 03:40 Tear Drop Cells 1+ (Not Present) A 02/14/17 03:40 PT 17.9 Seconds (9.4-12.1) H 02/12/17 01:00 ABG pO2 166 mmHg (85-104) H 02/14/17 04:31 ABG O2 Saturation 99 % (95-98) H 02/14/17 04:31 ABG Base Excess -3 mEq/L (-2 to 3) L 02/14/17 04:31 Potassium 5.0 mEq/L (3.5-4.5) H 02/14/17 03:40 BUN 124 mg/dL (8-26) H 02/14/17 03:40 Creatinine 4.12 mg/dL (0.72-1.25) H 02/14/17 03:40 Est GFR ( Amer) 18 (> 60) L 02/14/17 03:40 Est GFR (Non-Af Amer) 15 (> 60) L 02/14/17 03:40 BUN/Creatinine Ratio 30 (6-26) H 02/14/17 03:40 Glucose 116 mg/dL (70-99) H 02/14/17 03:40 POC Glucose 102 (58-89) H 02/13/17 09:52 Calculated Osmolality 337 (280-300) H 02/14/17 03:40 Calcium 7.6 mg/dL (8.6-10.8) L 02/14/17 03:40 Ionized Calcium 0.99 mmol/L (1.15-1.35) L 02/14/17 03:40 Phosphorus 6.4 mg/dL (2.3-4.7) H 02/14/17 03:40 Total Bilirubin 4.3 mg/dL (0.2-1.2) H 02/14/17 03:40 Direct Bilirubin 3.5 mg/dL (0.0-0.5) H 02/14/17 03:40 AST 76 Units/L (5-34) H 02/14/17 03:40 Creatine Kinase 605 Units/L (30-200) H 02/13/17 07:57 B-Natriuretic Peptide 231 pg/mL (0-100) H 02/12/17 01:00 Serum Total Protein 5.3 g/dL (6.0-8.3) L D 02/14/17 03:40 Albumin 1.4 g/dL (3.5-5.0) L D 02/14/17 03:40 Globulin 3.9 g/dL (2.4-3.5) H 02/14/17 03:40 Albumin/Globulin Ratio 0.4 (1.1-2.2) L 02/14/17 03:40 Triglycerides 329 mg/dL (< 150) H 02/12/17 01:00 VLDL Cholesterol, Calc 66 mg/dL (< 31) H 02/12/17 01:00 HDL Cholesterol < 5 mg/dL (40-59) L 02/12/17 01:00 Cholesterol/HDL Ratio 27.0 (0-4.9) H 02/12/17 01:00 PTH Intact 339.7 pg/ml (8.5-72.5) H 02/14/17 03:40 Urine Color [place] (Yellow) A 02/12/17 10:00 Urine Clarity Turbid (Clear) A 02/12/17 10:00 Urine Protein 30 mg/dL (Neg-Trace) H 02/12/17 10:00 Urine Blood Large (Negative) H 02/12/17 10:00 Urine Bilirubin Moderate (Negative) H 02/12/17 10:00 Urine Urobilinogen 2.0 mg/dL (Normal) H 02/12/17 10:00 Ur Leukocyte Esterase Small (Negative) H 02/12/17 10:00 Urine Microscopic RBC 15-30 per hpf (0-3) H 02/12/17 10:00 Urine Microscopic WBC 5-15 per hpf (0-3) H 02/12/17 10:00 Ur Squamous Epith Cells Many per lpf (None-Few) H 02/12/17 10:00 Urine Bacteria Moderate per hpf (None-Few) H 02/12/17 10:00 Granular Casts Moderate per lpf (None Seen) H 02/12/17 10:00 Ur Culture Indicated? YES (NO) A 02/12/17 10:00 Digoxin 2.3 ng/mL (0.8-2.0) H 02/14/17 03:40 Staphylococcus sp PCR DETECTED (Not Detect) A 02/13/17 08:17 Staph aureus (PCR) DETECTED (Not Detect) A 02/13/17 08:17 mecA-Methicil Res Gene DETECTED (Not Detect) A 02/13/17 08:17 - Microbiology Findings Microbiology Findings: Microbiology, Last 48 Hours 02/13/17 08:17 Blood Culture - Preliminary Peripheral Venipuncture Gram Positive Cocci 02/13/17 08:17 Blood Culture - Preliminary Peripheral Venipuncture Gram Positive Cocci 02/12/17 10:00 Urine Culture - Preliminary Urine,Clean Catch Gram Negative Waqar - Clinical Findings Intake & Output: Intake & Output 02/13/17 02/13/17 02/14/17 15:59 23:59 07:59 Intake Total 74 / 74 201 / 201 99 / 99 Output Total 100 / 100 300 / 300 25 / 25 Balance -26 / -26 -99 / -99 Weight 135 kg 135.31 kg
[2017-02-14] MEDS: Aspirin Enteric Coated 81 MG Tablet PO SCH (07:46)
[2017-02-14] MEDS ORDERED: Albumin 25% 12.5gm/50mL 12.5 GM/50 ML IV.SOLN IVPB PRN (08:02)
[2017-02-14] MEDS ORDERED: 0.9 % Sodium Chloride 250 ML IVC PRN (08:02)
[2017-02-14] MEDS ORDERED: Heparin 1,000 UNITS/500 mL NS 500 ML ONE (08:07)
[2017-02-14] MEDS: Pantoprazole 40 MG VIAL IVP SCH (08:26)
[2017-02-14] MEDS: Chlorhexidine Rinse 15 ML MOUTHWASH MM SCH ×2 (08:26→20:50)
[2017-02-14] MEDS ORDERED: *HR* Heparin 5,000 UNIT/ML VIAL ONE (09:30)
[2017-02-14] MEDS: FentaNYL (PF) 1,000 MCG in 0.9 % Sodium Chloride 80 ML IVC SCH (09:50)
--- NOTE | 2017-02-14 10:38 | Nephrology Progress Note ---
Date of Encounter: 02/14/17 Time of Encounter: 09:00 - Assessment and Plan (1) RICH (acute kidney injury) Current Visit: Yes Status: Acute serum Cr today 3.22, worsening. GFR: 15 baseline kidney function is unknown at this time. urinalysis showed granular casts, large amount of blood, bacteria. Etiology likely multifactorial secondary to septic shock, ATN, ureteral stone with hydronephrosis. will proceed with RICH workup. PTH 339, CPK 605 Plan: repeat Dig level tomorrow immunoelectrophoresis, k light chains, vitamin D, complement, pending. percutaneous nephrostomy tube placed today. temp dialysis catheter placed by IR , hemodialysis today. renally dose meds. avoid nephrotoxins as much as possible, follow renal protective strategy. (2) Ureteral stone with hydronephrosis Current Visit: Yes Status: Acute s/p placement of percutaneous nephrostomy tube. per urology and primary (3) Acute respiratory failure with hypercapnia Current Visit: Yes Status: Acute currently intubated. per primary (4) Septic shock Current Visit: Yes Status: Acute per primary (5) COPD exacerbation Current Visit: Yes Status: Acute per primary (6) Congestive heart failure Current Visit: Yes Status: Acute per primary Qualifiers: Congestive heart failure type: unspecified congestive heart failure type Congestive heart failure chronicity: acute Qualified Code(s): I50.9 - Heart failure, unspecified Subjective Principal diagnosis: RICH Interval history: 61M evaluated at bedside. he remains intubated and sedated. Objective - Vital Signs Vital signs: Vital Signs Temp Pulse Resp BP Pulse Ox 02/14/17 10:03 83 02/14/17 10:00 73 20 87/51 92 02/14/17 09:50 18 99 02/14/17 09:40 22 84/60 94 02/14/17 09:15 87 10 97 02/14/17 09:00 83 20 88/61 99 02/14/17 08:00 87 25 83/52 98 02/14/17 07:48 26 94/59 90 02/14/17 07:00 99.1 F 80 26 100/66 97 02/14/17 06:00 87 26 105/65 94 02/14/17 05:10 26 106/60 93 02/14/17 05:00 61 26 94/65 92 02/14/17 04:09 98.2 F 02/14/17 04:00 80 02/14/17 03:53 26 80/55 99 02/14/17 03:00 67 26 77/48 96 02/14/17 02:00 80 26 76/39 94 02/14/17 01:11 26 90/62 93 02/14/17 01:00 73 26 90/62 92 02/14/17 00:25 74 02/14/17 00:00 77 26 89/53 93 02/13/17 23:38 98.6 F 02/13/17 23:18 26 94/43 95 02/13/17 23:00 84 26 98/40 95 02/13/17 21:00 85 26 96/41 95 02/13/17 20:52 26 89/46 95 02/13/17 20:30 74 02/13/17 20:15 98.4 F 02/13/17 20:00 80 26 111/62 96 02/13/17 19:34 28 113/56 94 02/13/17 19:00 78 26 115/69 95 02/13/17 18:20 20 92 02/13/17 17:29 90 20 122/56 02/13/17 16:00 82 20 95/75 02/13/17 15:47 97.3 F L 02/13/17 14:03 88 26 101/48 92 02/13/17 14:00 100 26 101/48 92 02/13/17 13:00 98.4 F 86 22 116/61 93 02/13/17 12:30 87 22 116/61 92 02/13/17 12:22 79 16 115/67 93 02/13/17 11:22 87 16 123/47 93 02/13/17 10:42 90 16 93/44 95 Intake and Output 02/13/17 02/14/17 02/14/17 23:59 07:59 15:59 Intake Total 201 / 201 99 / 99 90 / 90 Output Total 300 / 300 25 / 25 30 / 30 Balance -99 / -99 74 / 74 60 / 60 Intake: IV Fluids 201 / 201 99 / 99 90 / 90 FentaNYL (PF) 1,000 MCG In 0.9 90 / 90 % Sodium Chloride 80 ML @ 50 MCG/HR 5 mls/hr IVC CONT JAMIL Rx #:[id number] Diprivan 1,000 mg In 100 ml @ 151 / 151 49 / 49 10 MCG/KG/MIN 8.127 mls/hr IVC .[id number] JAMIL Rx#:[id number] Zosyn 3.375 GM In Dextrose 5% ( 50 / 50 50 / 50 ADD-[place]) 50 ML @ 12.5 mls/ hr IVPB Q8HR JAMIL Rx#:[id number] Output: Catheter 300 / 300 25 / 25 30 / 30 Other: Weight 135.31 kg Patient Weight 02/14/17 23:59 Weight 135.31 kg - General Appearance General appearance: Present: well-developed, well-nourished, appears started age , obese, sedated on ventilator, intubated Neck: Present: no JVD Additional Comments: decreased breath sounds. Cardiology: Present: no murmurs, no rub, no gallops, no edema, regular rate, regular rhythm, normal S1, normal S2 Dialysis Vascular Access: Venous Catheter Gastrointestinal: Present: normoactive bowel sounds, no tenderness, no guarding , no organomegaly, no masses Additional Comments: intubated and sedated. Musculoskeletal: Present: no deformities, no erythema, no cyanosis, no clubbing Psychiatric: Present: mood/affect appropriate - Lab 02/14/17 03:40 02/14/17 03:40 Most recent lab results ABG pH 7.35 pH Units (7.32-7.45) 02/14/17 04:31 ABG pCO2 42 mmHg (35-45) 02/14/17 04:31 ABG pO2 166 mmHg (85-104) H 02/14/17 04:31 ABG HCO3 23 mEq/L (21-27) 02/14/17 04:31 ABG O2 Saturation 99 % (95-98) H 02/14/17 04:31 Calcium 7.6 mg/dL (8.6-10.8) L 02/14/17 03:40 Phosphorus 6.4 mg/dL (2.3-4.7) H 02/14/17 03:40 Magnesium 2.6 mg/dL (1.6-2.6) 02/14/17 03:40 Consult Discharge Plan - Plan Referrals: Simeon Lloyd Jr, MD [Primary Care Provider] -
[2017-02-14] MEDS ORDERED: *HR* Heparin 10,000 UNIT/10 ML VIAL IV PRN (10:41)
[2017-02-14 10:59] LABS: Bilirubin,Urine Moderate (Negative); Blood,Urine Large (Negative); Clarity,Urine Turbid (Clear); Color,Urine Red (Yellow); Glucose,Urine (UA) 100 mg/dL (Normal); Ketones,Urine Trace mg/dL (Negative); Leukocyte Esterase,Urine Large (Negative); Nitrite,Urine Positive (Negative); Protein,Urine 100 mg/dL (Neg-Trace); Specific Gravity,Urine > 1.030 (1.010-1.025); Urobilinogen,Urine Normal (Normal)
[2017-02-14] MEDS: Norepinephrine 4 MG in D5% in Water 250 ML IVC SCH (11:18)
[2017-02-14 14:59] LABS: ABG Base Excess -4 mEq/L (-2 to 3); ABG HCO3 21 mEq/L (21-27); ABG Oxygen Saturation 96 % (95-98); ABG PCO2 36 mmHg (35-45); ABG PH 7.38 pH Units (7.32-7.45); ABG PO2 84 mmHg (85-104); ABG TCO2 22 mEq/L (20-26)
[2017-02-14] MEDS: *HR* Heparin 5,000 UNIT/ML VIAL SQ SCH (17:53)
[2017-02-15] MEDS: Ipratropium/Albuterol Neb 3 ML IH SCH ×6 (03:39→23:50)
[2017-02-15] MEDS: Lacri-Lube 3.5 GM TUBE BOTH EYES SCH ×6 (03:51→23:24)
[2017-02-15 03:53] LABS: Hematocrit 35.4 % (37.5-50.1); Nucleated Red Blood Cells 0.1 /100 WBC (0); Red Cell Distribution Width 19.1 % (11.5-14.5)
[2017-02-15 03:55] LABS: Hemoglobin 11.2 g/dL (12.9-16.9); Immature Platelets 17.1 % (1.1-6.1); Mean Corpuscular HGB Conc 31.6 g/dL (31.6-35.5); Mean Corpuscular Hemoglobin 28.3 pg (28.0-33.3); Mean Corpuscular Volume 89.4 fL (83.0-100.0); Platelet Count 115 K/mcL (140-400); Red Blood Count 3.96 M/mcL (4.19-5.50)
[2017-02-15 04:09] LABS: Magnesium 2.7 mg/dL (1.6-2.6); Phosphorous 7.3 mg/dL (2.3-4.7); Potassium 4.9 mEq/L (3.5-4.5)
[2017-02-15 04:12] LABS: Albumin/Globulin Ratio 0.4 (1.1-2.2); Bilirubin,Direct 3.8 mg/dL (0.0-0.5); Bilirubin,Total 4.8 mg/dL (0.2-1.2); Total Protein 5.7 g/dL (6.0-8.3)
[2017-02-15 04:13] LABS: Albumin 1.7 g/dL (3.5-5.0)
[2017-02-15 04:33] LABS: Monocytes # 0.5 K/mcL (0.0-1.3); Neutrophils # 22.7 K/mcL (1.6-8.9)
[2017-02-15 04:34] LABS: Anisocytosis 1+ (Not Present); Platelet Estimate Decreased (Normal)
[2017-02-15 04:35] LABS: Large Platelets Present (Not Present); Microcytosis Present (Not Present)
[2017-02-15] MEDS: *HR* Heparin 5,000 UNIT/ML VIAL SQ SCH ×2 (05:13→18:22)
[2017-02-15] MEDS: Norepinephrine 4 MG in D5% in Water 250 ML IVC SCH ×2 (06:32→23:25)
--- NOTE | 2017-02-15 07:45 | Pulmonology Progress Note ---
<KatrinJaydon W - Last Filed: 02/15/17 10:27> Date of Encounter: 02/15/17 Objective PUL Vital signs: Last Vital Signs Temp 98.9 F 02/15/17 07:00 Pulse 59 02/15/17 08:00 Resp 22 02/15/17 08:00 BP 92/58 02/15/17 08:00 Pulse Ox 94 02/15/17 08:00 Ventilator Settings Ventilator Settings: Ventilator Settings, Last 8 Hours Ventilator Mode VC+ Ventilator Mode VC+ Ventilator Mode VC+ Ventilator Mode VC+ Ventilator Mode VC+ Ventilator Mode VC+ Ventilator Mode VC+ Ventilator Mode VC+ Ventilator Mode VC+ Ventilator Mode VC+ Ventilator Mode VC+ Ventilator Tidal Volume 500 Setting Ventilator Tidal Volume 500 Setting Ventilator Tidal Volume 500 Setting Ventilator Tidal Volume 500 Setting Ventilator Tidal Volume 500 Setting Ventilator Tidal Volume 500 Setting Ventilator Tidal Volume 500 Setting Ventilator Tidal Volume 500 Setting Ventilator Tidal Volume 500 Setting Ventilator Tidal Volume 500 Setting Ventilator Tidal Volume 500 Setting Ventilator Respiratory Rate 22 Setting Ventilator Respiratory Rate 22 Setting Ventilator Respiratory Rate 22 Setting Ventilator Respiratory Rate 22 Setting Ventilator Respiratory Rate 22 Setting Ventilator Respiratory Rate 22 Setting Ventilator Respiratory Rate 22 Setting Ventilator Respiratory Rate 22 Setting Ventilator Respiratory Rate 22 Setting Ventilator Respiratory Rate 22 Setting Ventilator Respiratory Rate 22 Setting Actual Respiratory Rate 22 Actual Respiratory Rate 22 Actual Respiratory Rate 22 Actual Respiratory Rate 22 Actual Respiratory Rate 22 Actual Respiratory Rate 22 Actual Respiratory Rate 22 Actual Respiratory Rate 22 Actual Respiratory Rate 22 Actual Respiratory Rate 22 Positive End Expiratory 8 Pressure Positive End Expiratory 8 Pressure Positive End Expiratory 8.0 Pressure Positive End Expiratory 8 Pressure Positive End Expiratory 8 Pressure Positive End Expiratory 8 Pressure Positive End Expiratory 8 Pressure Positive End Expiratory 8 Pressure Positive End Expiratory 8 Pressure Positive End Expiratory 8 Pressure Positive End Expiratory 8 Pressure Peak Inspiratory Airway 27 Pressure Peak Inspiratory Airway 24 Pressure Peak Inspiratory Airway 24 Pressure Peak Inspiratory Airway 24 Pressure Peak Inspiratory Airway 25 Pressure Peak Inspiratory Airway 24 Pressure Peak Inspiratory Airway 31 Pressure Peak Inspiratory Airway 24 Pressure Results - Laboratory Findings CBC and BMP: 02/15/17 03:41 02/15/17 03:41 ABG ABG pH 7.34 pH Units (7.32-7.45) 02/15/17 09:05 ABG pCO2 45 mmHg (35-45) 02/15/17 09:05 ABG pO2 90 mmHg (85-104) 02/15/17 09:05 ABG O2 Saturation 96 % (95-98) 02/15/17 09:05 PT/INR, D-dimer PT 17.9 Seconds (9.4-12.1) H 02/12/17 01:00 Abnormal lab findings: Abnormal lab results WBC 23.4 K/mcL (4.3-11.1) H D 02/15/17 03:41 RBC 3.96 M/mcL (4.19-5.50) L 02/15/17 03:41 Hgb 11.2 g/dL (12.9-16.9) L 02/15/17 03:41 Hct 35.4 % (37.5-50.1) L 02/15/17 03:41 RDW 19.1 % (11.5-14.5) H 02/15/17 03:41 Plt Count 115 K/mcL (140-400) L 02/15/17 03:41 Metamyelocytes % 2.0 % (0) H 02/11/17 06:30 Myelocytes % 1.0 % (0) H 02/15/17 03:41 Neutrophils # 22.7 K/mcL (1.6-8.9) H 02/15/17 03:41 Lymphocytes # 0.0 K/mcL (0.6-4.6) L 02/15/17 03:41 Nucleated RBCs/100 WBC 0.1 /100 WBC (0) H 02/15/17 03:41 Toxic Granulation Present (Not Present) A 02/12/17 01:00 Platelet Estimate Decreased (Normal) L 02/15/17 03:41 Large Platelets Present (Not Present) A 02/15/17 03:41 Immature Plt Fraction 17.1 % (1.1-6.1) H 02/15/17 03:41 Anisocytosis 1+ (Not Present) A 02/15/17 03:41 Microcytosis Present (Not Present) A 02/15/17 03:41 Tear Drop Cells 1+ (Not Present) A 02/14/17 03:40 PT 17.9 Seconds (9.4-12.1) H 02/12/17 01:00 Potassium 4.9 mEq/L (3.5-4.5) H 02/15/17 03:41 BUN 116 mg/dL (8-26) H 02/15/17 03:41 Creatinine 4.42 mg/dL (0.72-1.25) H 02/15/17 03:41 Est GFR ( Amer) 16 (> 60) L 02/15/17 03:41 Est GFR (Non-Af Amer) 14 (> 60) L 02/15/17 03:41 Glucose 188 mg/dL (70-99) H 02/15/17 03:41 POC Glucose 169 (58-89) H 02/15/17 07:41 Calculated Osmolality 330 (280-300) H 02/15/17 03:41 Calcium 8.0 mg/dL (8.6-10.8) L 02/15/17 03:41 Ionized Calcium 1.00 mmol/L (1.15-1.35) L 02/15/17 03:41 Phosphorus 7.3 mg/dL (2.3-4.7) H 02/15/17 03:41 Magnesium 2.7 mg/dL (1.6-2.6) H 02/15/17 03:41 Total Bilirubin 4.8 mg/dL (0.2-1.2) H 02/15/17 03:41 Direct Bilirubin 3.8 mg/dL (0.0-0.5) H 02/15/17 03:41 AST 58 Units/L (5-34) H 02/15/17 03:41 Creatine Kinase 605 Units/L (30-200) H 02/13/17 07:57 B-Natriuretic Peptide 231 pg/mL (0-100) H 02/12/17 01:00 Serum Total Protein 5.7 g/dL (6.0-8.3) L 02/15/17 03:41 Albumin 1.7 g/dL (3.5-5.0) L D 02/15/17 03:41 Globulin 4.0 g/dL (2.4-3.5) H 02/15/17 03:41 Albumin/Globulin Ratio 0.4 (1.1-2.2) L 02/15/17 03:41 Triglycerides 329 mg/dL (< 150) H 02/12/17 01:00 VLDL Cholesterol, Calc 66 mg/dL (< 31) H 02/12/17 01:00 HDL Cholesterol < 5 mg/dL (40-59) L 02/12/17 01:00 Cholesterol/HDL Ratio 27.0 (0-4.9) H 02/12/17 01:00 25-OH Vitamin D Total 17 ng/mL (30-80) L 02/14/17 03:40 PTH Intact 339.7 pg/ml (8.5-72.5) H 02/14/17 03:40 Urine Color Red (Yellow) A 02/14/17 09:18 Urine Clarity Turbid (Clear) A 02/14/17 09:18 Ur Specific [place] > 1.030 (1.010-1.025) H 02/14/17 09:18 Urine Protein 100 mg/dL (Neg-Trace) H 02/14/17 09:18 Urine Glucose (UA) 100 mg/dL (Normal) H 02/14/17 09:18 Urine Ketones Trace mg/dL (Negative) H 02/14/17 09:18 Urine Blood Large (Negative) H 02/14/17 09:18 Urine Nitrite Positive (Negative) A 02/14/17 09:18 Urine Bilirubin Moderate (Negative) H 02/14/17 09:18 Ur Leukocyte Esterase Large (Negative) H 02/14/17 09:18 Urine Microscopic RBC 15-30 per hpf (0-3) H 02/12/17 10:00 Urine Microscopic WBC 5-15 per hpf (0-3) H 02/12/17 10:00 Ur Squamous Epith Cells Many per lpf (None-Few) H 02/12/17 10:00 Urine Bacteria Moderate per hpf (None-Few) H 02/12/17 10:00 Granular Casts Moderate per lpf (None Seen) H 02/12/17 10:00 Ur Culture Indicated? YES (NO) A 02/14/17 09:18 Staphylococcus sp PCR DETECTED (Not Detect) A 02/13/17 08:17 Staph aureus (PCR) DETECTED (Not Detect) A 02/13/17 08:17 mecA-Methicil Res Gene DETECTED (Not Detect) A 02/13/17 08:17 - Microbiology Findings Microbiology Findings: Microbiology, Last 48 Hours 02/13/17 08:17 Blood Culture - Preliminary Peripheral Venipuncture Gram Positive Cocci 02/12/17 10:00 Urine Culture - Final Urine,Clean Catch Klebsiella pneu.ssp pneumoniae 02/13/17 08:17 Blood Culture - Preliminary Peripheral Venipuncture Gram Positive Cocci - Clinical Findings Intake & Output: Intake & Output 02/14/17 02/15/17 02/15/17 23:59 07:59 15:59 Intake Total 175 / 175 555.0 / 555.0 Output Total 230 / 230 56 / 56 Balance -55 / -55 499.0 / 499.0 Weight 137.99 kg Consult Discharge Plan - Plan Referrals: Simeon Lloyd Jr, MD [Primary Care Provider] - - Attending Attestation I examined this patient and my medical decision-making was reviewed with the Resident Physician. I agree with the documented findings, disposition and treatment plan as described except to the extent set forth below. We independently had [id number] contact with the patient Patient seen and examined at bedside Labs, radiology, chart personally reviewed. Management was reviewed during multidisciplinary critical care rounds. 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 cont goal Wilman 2-3 Pulm: Hypoxic Hypercarbic respiratory failure. decreased RR and PEEP. Cards: Hypotension MAP at 65 with low dose of vasopressor nearly off. 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 Nephro follwoing. This is complicated by obstructive nephrology s/p nephrostomy placement ID: Severe Sepsis s/t to MRSA bacteremia and Possible UTI. Cont MRSA and Heme/Onc: DVT prophylaxis given Endo: Glucose Monitored Integ/MSK: Skin Care per routine ICU Nursing Protocol to prevent ulcers. Lines: All lines examined without evidence of infection : Dispo: Remain in ICU CODE: Full Code updated at bedside. <Vinnie Dumont - Last Filed: 02/15/17 13:39> Date of Encounter: 02/15/17 Time of Encounter: 07:44 Assessment and Plan (1) Acute respiratory failure with hypercapnia Current Visit: Yes Status: Acute Likely related to severe sepsis. Patient remains intubated on mechanical ventilation. ABG showed adequate oxygenation and ventilation. Patient does wake up and responsive to verbal and painful stimuli and will follow some commands. (2) Sepsis Current Visit: Yes Status: Acute Severe sepsis secondary to bacteremia and UTI in the setting of urinary stone. Blood cultures are positive preliminary for MRSA, urine culture shows Klebsiella. Patient was on broad-spectrum antibiotics with vancomycin and Zosyn. We will de-escalate the Zosyn to Rocephin, continue vancomycin Repeat blood cultures are pending. TTE on admission showed no evidence of vegetation, leukocytosis increased today so we will obtain REBECA. Qualifiers: Sepsis type: sepsis due to unspecified organism Qualified Code(s): A41.9 - Sepsis, unspecified organism (3) Pneumonia Current Visit: Yes Status: Acute Possible. Patient is on broad spectrum antibiotics. Blood cultures as above. Obtain sputum culture. Qualifiers: Pneumonia type: due to unspecified organism Laterality: right Lung location: upper lobe of lung Qualified Code(s): J18.1 - Lobar pneumonia, unspecified organism (4) COPD exacerbation Current Visit: Yes Status: Acute Unlikely. Will continue breathing treatments, and antibiotics. Steroids have been discontinued. (5) Kqsqw-ve-ypljvfo kidney injury Current Visit: Yes Status: Acute Rapidly progressing. Likely multifactorial in the setting of obstructive uropathy due to kidney stone as well as possible ATN. Potassium stable. Nephrology is following and hemodialysis was started yesterday and will have another treatment again today. Continue monitor electrolytes and urine output. Qualifiers: Acute renal failure type: unspecified Chronic kidney disease stage: stage 3 (moderate) Qualified Code(s): N17.9 - Acute kidney failure, unspecified; N18.3 - Chronic kidney disease, stage 3 (moderate); N18.3 - Chronic kidney disease, stage 3 (moderate) (6) Ureteral stone with hydronephrosis Current Visit: Yes Status: Acute Likely more a chronic issue given right hydronephrosis with renal atrophy. Urology attempted to place a stent at bedside that was unsuccessful. Patient had right nephrostomy tube placement by interventional radiology yesterday to relieve obstruction. (7) Effusion of sternoclavicular joint Current Visit: Yes Status: Acute CT scan of the chest revealed displacement of the sternoclavicular joint with mild fluid collection. No gas to indicate infection. Patient would benefit from an orthopedic consult once his critical illness is more stable. Patient does have bacteremia of an unclear source at this time, it is unlikely that he has a septic sternoclavicular joint given his likely pneumonia and UTI however if we are unable to locate a source of his MRSA infection he may need a joint aspiration for culture. (8) Hyperglycemia Current Visit: Yes Status: Acute Blood sugars were mildly elevated, likely related to steroid use. We will institute low-dose sliding scale. Subjective Principal diagnosis: Sepsis Interval history: Patient seen and examined at bedside. Patient remains intubated and mildly sedated. He does wake up and move all 4 extremities spontaneously and he will follow some commands. He does not appear to be in any acute distress. Objective PUL Vital signs: Last Vital Signs Temp 98.9 F 02/15/17 07:00 Pulse 71 02/15/17 07:00 Resp 22 02/15/17 07:00 BP 101/50 02/15/17 07:00 Pulse Ox 95 02/15/17 07:00 General appearance: no acute distress ENT: oropharynx moist Effort: normal Auscultation: bilateral: diminished breath sounds Cardiovascular: irregular rhythm (Rate controlled) Gastrointestinal: normoactive bowel sounds, soft, tender (Diffuse mild tenderness to palpation), non-distended, other (Large hernia present, no evidence of incarceration.) Extremities: no cyanosis, no clubbing, edema (2+ pitting edema bilaterally) normal mental status, non-focal exam Ventilator Settings Ventilator Settings: Ventilator Settings, Last 8 Hours Ventilator Mode VC+ Ventilator Mode VC+ Ventilator Mode VC+ Ventilator Mode VC+ Ventilator Mode VC+ Ventilator Mode VC+ Ventilator Mode VC+ Ventilator Mode VC+ Ventilator Mode VC+ Ventilator Mode VC+ Ventilator Mode VC+ Ventilator Tidal Volume 500 Setting Ventilator Tidal Volume 500 Setting Ventilator Tidal Volume 500 Setting Ventilator Tidal Volume 500 Setting Ventilator Tidal Volume 500 Setting Ventilator Tidal Volume 500 Setting Ventilator Tidal Volume 500 Setting Ventilator Tidal Volume 500 Setting Ventilator Tidal Volume 500 Setting Ventilator Tidal Volume 500 Setting Ventilator Tidal Volume 500 Setting Ventilator Respiratory Rate 22 Setting Ventilator Respiratory Rate 22 Setting Ventilator Respiratory Rate 22 Setting Ventilator Respiratory Rate 22 Setting Ventilator Respiratory Rate 22 Setting Ventilator Respiratory Rate 22 Setting Ventilator Respiratory Rate 22 Setting Ventilator Respiratory Rate 22 Setting Ventilator Respiratory Rate 22 Setting Ventilator Respiratory Rate 22 Setting Ventilator Respiratory Rate 22 Setting Actual Respiratory Rate 22 Actual Respiratory Rate 22 Actual Respiratory Rate 22 Actual Respiratory Rate 22 Actual Respiratory Rate 22 Actual Respiratory Rate 22 Actual Respiratory Rate 22 Actual Respiratory Rate 22 Actual Respiratory Rate 22 Actual Respiratory Rate 22 Actual Respiratory Rate 22 Positive End Expiratory 8 Pressure Positive End Expiratory 8 Pressure Positive End Expiratory 8 Pressure Positive End Expiratory 8 Pressure Positive End Expiratory 8 Pressure Positive End Expiratory 8 Pressure Positive End Expiratory 8 Pressure Positive End Expiratory 8 Pressure Positive End Expiratory 8 Pressure Positive End Expiratory 8 Pressure Positive End Expiratory 8 Pressure Peak Inspiratory Airway 24 Pressure Peak Inspiratory Airway 24 Pressure Peak Inspiratory Airway 24 Pressure Peak Inspiratory Airway 25 Pressure Peak Inspiratory Airway 24 Pressure Peak Inspiratory Airway 31 Pressure Peak Inspiratory Airway 24 Pressure Peak Inspiratory Airway 24 Pressure Peak Inspiratory Airway 24 Pressure Peak Inspiratory Airway 25 Pressure Results - Laboratory Findings CBC and BMP: 02/15/17 03:41 02/15/17 03:41 ABG ABG pH 7.35 pH Units (7.32-7.45) 02/14/17 04:31 ABG pCO2 42 mmHg (35-45) 02/14/17 04:31 ABG pO2 166 mmHg (85-104) H 02/14/17 04:31 ABG O2 Saturation 99 % (95-98) H 02/14/17 04:31 PT/INR, D-dimer PT 17.9 Seconds (9.4-12.1) H 02/12/17 01:00 Abnormal lab findings: Abnormal lab results WBC 23.4 K/mcL (4.3-11.1) H D 02/15/17 03:41 RBC 3.96 M/mcL (4.19-5.50) L 02/15/17 03:41 Hgb 11.2 g/dL (12.9-16.9) L 02/15/17 03:41 Hct 35.4 % (37.5-50.1) L 02/15/17 03:41 RDW 19.1 % (11.5-14.5) H 02/15/17 03:41 Plt Count 115 K/mcL (140-400) L 02/15/17 03:41 Metamyelocytes % 2.0 % (0) H 02/11/17 06:30 Myelocytes % 1.0 % (0) H 02/15/17 03:41 Neutrophils # 22.7 K/mcL (1.6-8.9) H 02/15/17 03:41 Lymphocytes # 0.0 K/mcL (0.6-4.6) L 02/15/17 03:41 Nucleated RBCs/100 WBC 0.1 /100 WBC (0) H 02/15/17 03:41 Toxic Granulation Present (Not Present) A 02/12/17 01:00 Platelet Estimate Decreased (Normal) L 02/15/17 03:41 Large Platelets Present (Not Present) A 02/15/17 03:41 Immature Plt Fraction 17.1 % (1.1-6.1) H 02/15/17 03:41 Anisocytosis 1+ (Not Present) A 02/15/17 03:41 Microcytosis Present (Not Present) A 02/15/17 03:41 Tear Drop Cells 1+ (Not Present) A 02/14/17 03:40 PT 17.9 Seconds (9.4-12.1) H 02/12/17 01:00 ABG pO2 166 mmHg (85-104) H 02/14/17 04:31 ABG O2 Saturation 99 % (95-98) H 02/14/17 04:31 ABG Base Excess -3 mEq/L (-2 to 3) L 02/14/17 04:31 Potassium 4.9 mEq/L (3.5-4.5) H 02/15/17 03:41 BUN 116 mg/dL (8-26) H 02/15/17 03:41 Creatinine 4.42 mg/dL (0.72-1.25) H 02/15/17 03:41 Est GFR ( Amer) 16 (> 60) L 02/15/17 03:41 Est GFR (Non-Af Amer) 14 (> 60) L 02/15/17 03:41 Glucose 188 mg/dL (70-99) H 02/15/17 03:41 POC Glucose 183 (58-89) H 02/15/17 03:00 Calculated Osmolality 330 (280-300) H 02/15/17 03:41 Calcium 8.0 mg/dL (8.6-10.8) L 02/15/17 03:41 Ionized Calcium 1.00 mmol/L (1.15-1.35) L 02/15/17 03:41 Phosphorus 7.3 mg/dL (2.3-4.7) H 02/15/17 03:41 Magnesium 2.7 mg/dL (1.6-2.6) H 02/15/17 03:41 Total Bilirubin 4.8 mg/dL (0.2-1.2) H 02/15/17 03:41 Direct Bilirubin 3.8 mg/dL (0.0-0.5) H 02/15/17 03:41 AST 58 Units/L (5-34) H 02/15/17 03:41 Creatine Kinase 605 Units/L (30-200) H 02/13/17 07:57 B-Natriuretic Peptide 231 pg/mL (0-100) H 02/12/17 01:00 Serum Total Protein 5.7 g/dL (6.0-8.3) L 02/15/17 03:41 Albumin 1.7 g/dL (3.5-5.0) L D 02/15/17 03:41 Globulin 4.0 g/dL (2.4-3.5) H 02/15/17 03:41 Albumin/Globulin Ratio 0.4 (1.1-2.2) L 02/15/17 03:41 Triglycerides 329 mg/dL (< 150) H 02/12/17 01:00 VLDL Cholesterol, Calc 66 mg/dL (< 31) H 02/12/17 01:00 HDL Cholesterol < 5 mg/dL (40-59) L 02/12/17 01:00 Cholesterol/HDL Ratio 27.0 (0-4.9) H 02/12/17 01:00 PTH Intact 339.7 pg/ml (8.5-72.5) H 02/14/17 03:40 Urine Color Red (Yellow) A 02/14/17 09:18 Urine Clarity Turbid (Clear) A 02/14/17 09:18 Ur Specific [place] > 1.030 (1.010-1.025) H 02/14/17 09:18 Urine Protein 100 mg/dL (Neg-Trace) H 02/14/17 09:18 Urine Glucose (UA) 100 mg/dL (Normal) H 02/14/17 09:18 Urine Ketones Trace mg/dL (Negative) H 02/14/17 09:18 Urine Blood Large (Negative) H 02/14/17 09:18 Urine Nitrite Positive (Negative) A 02/14/17 09:18 Urine Bilirubin Moderate (Negative) H 02/14/17 09:18 Ur Leukocyte Esterase Large (Negative) H 02/14/17 09:18 Urine Microscopic RBC 15-30 per hpf (0-3) H 02/12/17 10:00 Urine Microscopic WBC 5-15 per hpf (0-3) H 02/12/17 10:00 Ur Squamous Epith Cells Many per lpf (None-Few) H 02/12/17 10:00 Urine Bacteria Moderate per hpf (None-Few) H 02/12/17 10:00 Granular Casts Moderate per lpf (None Seen) H 02/12/17 10:00 Ur Culture Indicated? YES (NO) A 02/14/17 09:18 Staphylococcus sp PCR DETECTED (Not Detect) A 02/13/17 08:17 Staph aureus (PCR) DETECTED (Not Detect) A 02/13/17 08:17 mecA-Methicil Res Gene DETECTED (Not Detect) A 02/13/17 08:17 - Microbiology Findings Microbiology Findings: Microbiology, Last 48 Hours 02/13/17 08:17 Blood Culture - Preliminary Peripheral Venipuncture Gram Positive Cocci 02/12/17 10:00 Urine Culture - Final Urine,Clean Catch Klebsiella pneu.ssp pneumoniae 02/13/17 08:17 Blood Culture - Preliminary Peripheral Venipuncture Gram Positive Cocci - Clinical Findings Intake & Output: Intake & Output 02/14/17 02/14/17 02/15/17 15:59 23:59 07:59 Intake Total 850 / 850 175 / 175 479.0 / 479.0 Output Total 880 / 880 230 / 230 38 / 38 Balance -30 / -30 -55 / -55 441.0 / 441.0 Weight 137.99 kg - VTE Documentation of Mechanical Device: Intermittent pneumatic compression device
[2017-02-15] MEDS: Aspirin Enteric Coated 81 MG Tablet PO SCH (07:51)
[2017-02-15] MEDS: cefTRIAXone 2,000 MG in Water for inj. (sterile) 20 ML IVP SCH (07:55)
[2017-02-15] MEDS: Chlorhexidine Rinse 15 ML MOUTHWASH MM SCH ×2 (07:55→19:40)
[2017-02-15] MEDS: Pantoprazole 40 MG VIAL IVP SCH (07:55)
--- NOTE | 2017-02-15 08:45 | Nephrology Progress Note ---
Date of Encounter: 02/15/17 Time of Encounter: 08:43 - Assessment and Plan (1) RICH (acute kidney injury) Current Visit: Yes Status: Acute serum Cr today 3.22, worsening. GFR: 15 baseline kidney function is unknown at this time. urinalysis showed granular casts, large amount of blood, bacteria. Etiology likely multifactorial secondary to septic shock, ATN, ureteral stone with hydronephrosis. will proceed with RICH workup. PTH 339, vitamin D 17, CPK 605, Dig 2 Plan: continue with hemodialysis today as kidney function is worsening. patient will need ergocalciferol 50,000 units weekly when he is not intubated anymore, as it cannot be crushed and put in OG tube. immunoelectrophoresis, k light chains, complement, pending. renally dose meds. avoid nephrotoxins as much as possible, follow renal protective strategy. (2) Secondary hyperparathyroidism Current Visit: Yes Status: Acute as above (3) Ureteral stone with hydronephrosis Current Visit: Yes Status: Acute s/p placement of percutaneous nephrostomy tube. per urology and primary (4) Acute respiratory failure with hypercapnia Current Visit: Yes Status: Acute currently intubated. per primary (5) Septic shock Current Visit: Yes Status: Acute per primary (6) COPD exacerbation Current Visit: Yes Status: Acute per primary (7) Congestive heart failure Current Visit: Yes Status: Acute per primary Qualifiers: Congestive heart failure type: unspecified congestive heart failure type Congestive heart failure chronicity: acute Qualified Code(s): I50.9 - Heart failure, unspecified Subjective Principal diagnosis: Sepsis Interval history: 61M evaluated at bedside. he remains intubated and sedated. Objective - Vital Signs Vital signs: Vital Signs Temp Pulse Resp BP Pulse Ox 02/15/17 08:00 59 22 92/58 94 02/15/17 07:55 22 166/60 95 02/15/17 07:00 98.9 F 63 22 101/50 95 02/15/17 06:00 77 22 93/57 94 02/15/17 05:25 22 102/52 94 02/15/17 05:00 78 22 108/60 95 02/15/17 04:00 73 22 94 02/15/17 03:45 65 02/15/17 03:40 22 88/50 93 02/15/17 03:00 82 22 93/50 95 02/15/17 02:58 98.6 F 02/15/17 02:00 76 22 92/52 94 02/15/17 01:20 22 102/54 94 02/15/17 01:00 68 22 89/54 95 02/15/17 00:00 82 21 86/49 94 02/14/17 23:48 86 02/14/17 23:42 22 84/45 96 02/14/17 23:14 97.8 F 02/14/17 23:00 74 22 72/42 96 02/14/17 22:00 91 22 94/61 94 02/14/17 21:42 23 94/61 90 02/14/17 21:00 98 22 99/64 94 02/14/17 20:55 89 02/14/17 20:00 89 22 98/64 94 02/14/17 19:48 22 107/64 94 02/14/17 19:45 98.6 F 02/14/17 19:00 105 22 103/74 94 02/14/17 18:00 95 22 101/71 96 02/14/17 17:04 22 98/57 94 02/14/17 17:00 96 22 98/57 94 02/14/17 16:00 93 24 91/69 92 02/14/17 15:50 99 02/14/17 15:44 98.2 F 02/14/17 15:00 76 22 108/80 93 02/14/17 14:00 98.4 F 68 22 100/68 94 02/14/17 13:50 91/67 02/14/17 13:35 22 94/64 94 02/14/17 13:05 96/65 02/14/17 13:00 80 23 99/67 92 02/14/17 12:50 88/68 02/14/17 12:35 88/63 02/14/17 12:20 92/49 02/14/17 12:05 86/52 02/14/17 12:00 79 22 88/63 92 02/14/17 11:50 98.4 F 14 86/43 17 11:27 22 84/51 91 02/14/17 11:00 98.7 F 75 22 96/51 91 17 10:03 83 02/14/17 10:00 73 22 87/51 92 02/14/17 09:50 18 99 02/14/17 09:40 22 84/60 94 02/14/17 09:15 87 10 97 02/14/17 09:00 83 20 88/61 99 Intake and Output 02/14/17 02/15/17 02/15/17 23:59 07:59 15:59 Intake Total 175 / 175 555.0 / 555.0 Output Total 230 / 230 56 / 56 Balance -55 / -55 499.0 / 499.0 Intake: IV Fluids 150 / 150 350.0 / 350.0 FentaNYL (PF) 1,000 MCG In 0.9 0 / 0 % Sodium Chloride 80 ML @ 50 MCG/HR 5 mls/hr IVC CONT JAMIL Rx #:[id number] Levophed 4 MG In Dextrose 5% 0 / 0 230.0 / 230.0 250 ML @ 2 MCG/MIN 7.62 mls/hr IVC CONT JAMIL Rx#:[id number] Diprivan 1,000 mg In 100 ml @ 100 / 100 70 / 70 10 MCG/KG/MIN 8.127 mls/hr IVC .[id number] JAMIL Rx#:[id number] Zosyn 3.375 GM In Dextrose 5% ( 50 / 50 50 / 50 ADD-Spal[place]) 50 ML @ 12.5 mls/ hr IVPB Q8HR JAMIL Rx#:[id number] Tube Feeding 25 / 25 205 / 205 Free Water Intake Amount 0 / 0 0 / 0 Output: Right Nephrostomy 110 / 110 21 / 21 Catheter 120 / 120 35 / 35 Other: Weight 137.99 kg Blood Glucose* 158 101 Patient Weight 02/15/17 23:59 Weight 137.99 kg - General Appearance General appearance: Present: well-developed, well-nourished, appears started age , obese, sedated on ventilator, intubated Neck: Present: no JVD Respiratory: Present: clear Cardiology: Present: no murmurs, no rub, no gallops, regular rate, regular rhythm, normal S1, normal S2 Additional Comments: +1 bilateral pitting edema. Dialysis Vascular Access: Venous Catheter Gastrointestinal: Present: tenderness, no guarding, no organomegaly, no masses Additional Comments: ulcer present on right heel. Musculoskeletal: Present: no cyanosis, no clubbing - Lab 02/15/17 03:41 02/15/17 03:41 Most recent lab results ABG pH 7.35 pH Units (7.32-7.45) 02/14/17 04:31 ABG pCO2 42 mmHg (35-45) 02/14/17 04:31 ABG pO2 166 mmHg (85-104) H 02/14/17 04:31 ABG HCO3 23 mEq/L (21-27) 02/14/17 04:31 ABG O2 Saturation 99 % (95-98) H 02/14/17 04:31 Calcium 8.0 mg/dL (8.6-10.8) L 02/15/17 03:41 Phosphorus 7.3 mg/dL (2.3-4.7) H 02/15/17 03:41 Magnesium 2.7 mg/dL (1.6-2.6) H 02/15/17 03:41 - VTE Documentation of Mechanical Device: Intermittent pneumatic compression device Consult Discharge Plan - Plan Referrals: Simeon Lloyd Jr, MD [Primary Care Provider] -
[2017-02-15 09:08] LABS: ABG Base Excess -2 mEq/L (-2 to 3); ABG HCO3 24 mEq/L (21-27); ABG Oxygen Saturation 96 % (95-98); ABG PCO2 45 mmHg (35-45); ABG PH 7.34 pH Units (7.32-7.45); ABG PO2 90 mmHg (85-104); ABG TCO2 26 mEq/L (20-26); Blood Gas Modality VC; Blood Gas PEEP 8 cm H2O; Blood Gas Respiration Rate 22; Blood Gas VT 500 cc
[2017-02-15] MEDS ORDERED: *HR* Heparin 10,000 UNIT/10 ML VIAL IV PRN (09:19)
[2017-02-15] MEDS ORDERED: 0.9 % Sodium Chloride 250 ML IVC PRN (09:19)
[2017-02-15] MEDS ORDERED: *HR* Dextrose 50 % in Water (Syg) 50 ML SYRINGE IVP PRN (10:33)
[2017-02-15] MEDS ORDERED: D5% in Water 1,000 ML IVC PRN (10:33)
[2017-02-15] MEDS ORDERED: Dextrose Gel 15 GM PO PRN ×2 (10:33)
[2017-02-15] MEDS ORDERED: Dexmedetomidine HCl 400 MCG/100 ML MLS IVC SCH (10:45)
[2017-02-15] MEDS ORDERED: 0.9 % Sodium Chloride 1,000 ML ONE (11:21)
[2017-02-15] MEDS: Insulin LISPRO 300 UNITS/3 ML VIAL SQ SCH ×3 (11:35→23:24)
[2017-02-15] MEDS: Sennosides/Docusate Sodium TABLET PO SCH ×2 (11:35→19:40)
[2017-02-15] MEDS ORDERED: Albumin 25% 12.5gm/50mL 12.5 GM/50 ML IV.SOLN ONE (13:36)
[2017-02-15] MEDS ORDERED: Albumin 25% 12.5gm/50mL 12.5 GM/50 ML IV.SOLN IVPB ONE (13:37)
[2017-02-15] MEDS: FentaNYL (PF) 1,000 MCG in 0.9 % Sodium Chloride 80 ML IVC SCH (15:19)
[2017-02-15] MEDS ORDERED: *HR* Midazolam HCl 5 MG/5 ML VIAL IVP ONE (16:03)
[2017-02-15] MEDS ORDERED: *HR* Midazolam HCl 2 MG/2 ML VIAL IVP ONE (16:29)
--- NOTE | 2017-02-15 18:38 | Electrocardiograph Report ---
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
[2017-02-16 02:35] LABS: Kappa Qnt Free Light Chains 2.19 mg/dL (0.33-1.94); Lambda Qnt Free Light Chains 5.11 mg/dL (0.57-2.63)
[2017-02-16] MEDS: Ipratropium/Albuterol Neb 3 ML IH SCH ×6 (03:54→23:29)
[2017-02-16] MEDS: *HR* Heparin 5,000 UNIT/ML VIAL SQ SCH ×2 (04:52→18:21)
[2017-02-16] MEDS: Lacri-Lube 3.5 GM TUBE BOTH EYES SCH ×5 (04:52→20:25)
[2017-02-16] MEDS: Insulin LISPRO 300 UNITS/3 ML VIAL SQ SCH ×3 (05:23→18:18)
[2017-02-16 05:33] LABS: Basophils % 0.7 %
[2017-02-16] MEDS: FentaNYL (PF) 1,000 MCG in 0.9 % Sodium Chloride 80 ML IVC SCH ×2 (05:34→19:01)
[2017-02-16 05:35] LABS: Basophils # 0.1 K/mcL (0.0-0.2); Hematocrit 36.2 % (37.5-50.1); Hemoglobin 11.5 g/dL (12.9-16.9); Immature Granulocytes % 8.5 % (0-4); Immature Platelets 16.3 % (1.1-6.1); Lymphocytes # 0.6 K/mcL (0.6-4.6); Lymphocytes % 2.9 %; Mean Corpuscular HGB Conc 31.8 g/dL (31.6-35.5); Mean Corpuscular Hemoglobin 28.1 pg (28.0-33.3); Mean Corpuscular Volume 88.5 fL (83.0-100.0); Monocytes # 1.2 K/mcL (0.0-1.3); Monocytes % 5.9 %; Nucleated Red Blood Cells 0.1 /100 WBC (0); Platelet Count 104 K/mcL (140-400); Red Blood Count 4.09 M/mcL (4.19-5.50); Red Cell Distribution Width 18.8 % (11.5-14.5)
[2017-02-16 05:41] LABS: Ionized Calcium 0.89 mmol/L (1.15-1.35)
[2017-02-16 05:59] LABS: Neutrophils # 16.5 K/mcL (1.6-8.9)
[2017-02-16 06:02] LABS: Platelet Estimate Decreased (Normal)
[2017-02-16 06:03] LABS: Anisocytosis 1+ (Not Present); Reactive Lymphocytes Present (Not Present)
[2017-02-16 06:27] LABS: Albumin/Globulin Ratio 0.5 (1.1-2.2); Bilirubin,Direct 3.3 mg/dL (0.0-0.5); Bilirubin,Indirect 0.8 mg/dL (0.0-1.2); Calcium 7.3 mg/dL (8.6-10.8); Magnesium 2.6 mg/dL (1.6-2.6); Phosphorous 7.5 mg/dL (2.3-4.7); Potassium 5.2 mEq/L (3.5-4.5); Total Protein 5.9 g/dL (6.0-8.3)
[2017-02-16 06:36] LABS: Albumin 1.9 g/dL (3.5-5.0); Vancomycin,Random 23.6 mcg/mL
[2017-02-16 06:37] LABS: Bilirubin,Total 4.1 mg/dL (0.2-1.2)
--- NOTE | 2017-02-16 07:21 | Pulmonology Progress Note ---
<Ekaterina Odom - Last Filed: 02/16/17 14:20> Date of Encounter: 02/16/17 Time of Encounter: 07:21 Assessment and Plan (1) Acute respiratory failure with hypercapnia Current Visit: Yes Status: Acute Likely 2/2 to sepsis. Patient remains intubated on mechanical ventilation. Patient responsive to verbal , follow simple commands. ABG ordered for AM. (2) [id number]-[id number] kidney injury Current Visit: Yes Status: Acute Creatinine rising. Likely multifactorial in the setting of obstructive uropathy due to kidney stone as well as possible ATN. Nephrology on consult, appreciate recs. Will Continue monitor electrolytes and urine output. Qualifiers: Acute renal failure type: unspecified Chronic kidney disease stage: stage 3 (moderate) Qualified Code(s): N17.9 - Acute kidney failure, unspecified; N18.3 - Chronic kidney disease, stage 3 (moderate); N18.3 - Chronic kidney disease, stage 3 (moderate) (3) Ureteral stone with hydronephrosis Current Visit: Yes Status: Acute Per RN, patient removed nephrostomy tube this AM. Urology and IR on consult. IR seen patient this afternoon and Nephrostomy tube re-placed. (4) Pneumonia Current Visit: Yes Status: Acute Continue management. Qualifiers: Pneumonia type: due to unspecified organism Laterality: right Lung location: upper lobe of lung Qualified Code(s): J18.1 - Lobar pneumonia, unspecified organism (5) Effusion of sternoclavicular joint Current Visit: Yes Status: Acute CT scan of the chest: displacement of the sternoclavicular joint with mild fluid collection. Ortho on consult, has seen patient for rotator cuff repair. Recommend outpatient follow-up. (6) Hyperglycemia Current Visit: Yes Status: Acute Continue management. (7) Severe sepsis Current Visit: Yes Status: Acute Final Blood cultures positive for MRSA. Urine culture shows Klebsiella. Continue management (8) DVT prophylaxis Current Visit: Yes Status: Acute Continue heparin SubQ Subjective Principal diagnosis: Sepsis Interval history: Pt responsive to verbal commands. Stable overnight. Objective PUL Vital signs: Last Vital Signs Temp 98.7 F 02/16/17 04:56 Pulse 67 02/16/17 06:00 Resp 22 02/16/17 06:00 BP 106/59 02/16/17 06:00 Pulse Ox 97 02/16/17 06:00 General appearance: no acute distress ENT: oropharynx dry, other (endotracheal tube in place ) Auscultation: bilateral: diminished breath sounds Cardiovascular: irregular rhythm Gastrointestinal: normoactive bowel sounds, soft, non-distended, other (midline hernia present) Extremities: edema (LE b/l ) unable to assess due to mental status Ventilator Settings Ventilator Settings: Ventilator Settings, Last 8 Hours Ventilator Mode VC+ Ventilator Mode VC+ Ventilator Mode VC+ Ventilator Mode VC+ Ventilator Mode VC+ Ventilator Mode VC+ Ventilator Mode VC+ Ventilator Mode VC+ Ventilator Mode VC+ Ventilator Tidal Volume 500 Setting Ventilator Tidal Volume 500 Setting Ventilator Tidal Volume 500 Setting Ventilator Tidal Volume 500 Setting Ventilator Tidal Volume 500 Setting Ventilator Tidal Volume 500 Setting Ventilator Tidal Volume 500 Setting Ventilator Tidal Volume 500 Setting Ventilator Tidal Volume 500 Setting Ventilator Respiratory Rate 22 Setting Ventilator Respiratory Rate 22 Setting Ventilator Respiratory Rate 22 Setting Ventilator Respiratory Rate 22 Setting Ventilator Respiratory Rate 22 Setting Ventilator Respiratory Rate 22 Setting Ventilator Respiratory Rate 22 Setting Ventilator Respiratory Rate 22 Setting Ventilator Respiratory Rate 22 Setting Actual Respiratory Rate 22 Actual Respiratory Rate 22 Actual Respiratory Rate 24 Actual Respiratory Rate 22 Actual Respiratory Rate 22 Actual Respiratory Rate 22 Actual Respiratory Rate 22 Actual Respiratory Rate 24 Actual Respiratory Rate 22 Positive End Expiratory 8 Pressure Positive End Expiratory 8 Pressure Positive End Expiratory 8 Pressure Positive End Expiratory 8 Pressure Positive End Expiratory 8 Pressure Positive End Expiratory 8 Pressure Positive End Expiratory 8 Pressure Positive End Expiratory 8 Pressure Positive End Expiratory 8 Pressure Peak Inspiratory Airway 28 Pressure Peak Inspiratory Airway 27 Pressure Peak Inspiratory Airway 26 Pressure Peak Inspiratory Airway 25 Pressure Peak Inspiratory Airway 24 Pressure Peak Inspiratory Airway 22 Pressure Peak Inspiratory Airway 27 Pressure Peak Inspiratory Airway 28 Pressure Results - Laboratory Findings CBC and BMP: 02/16/17 05:15 02/16/17 05:15 ABG ABG pH 7.34 pH Units (7.32-7.45) 02/15/17 09:05 ABG pCO2 45 mmHg (35-45) 02/15/17 09:05 ABG pO2 90 mmHg (85-104) 02/15/17 09:05 ABG O2 Saturation 96 % (95-98) 02/15/17 09:05 PT/INR, D-dimer PT 17.9 Seconds (9.4-12.1) H 02/12/17 01:00 Abnormal lab findings: Abnormal lab results WBC 20.1 K/mcL (4.3-11.1) H 02/16/17 05:15 RBC 4.09 M/mcL (4.19-5.50) L 02/16/17 05:15 Hgb 11.5 g/dL (12.9-16.9) L 02/16/17 05:15 Hct 36.2 % (37.5-50.1) L 02/16/17 05:15 RDW 18.8 % (11.5-14.5) H 02/16/17 05:15 Plt Count 104 K/mcL (140-400) L 02/16/17 05:15 Immature Gran % 8.5 % (0-4) H 02/16/17 05:15 Metamyelocytes % 2.0 % (0) H 02/11/17 06:30 Myelocytes % 1.0 % (0) H 02/15/17 03:41 Neutrophils # 16.5 K/mcL (1.6-8.9) H 02/16/17 05:15 Nucleated RBCs/100 WBC 0.1 /100 WBC (0) H 02/16/17 05:15 Reactive Lymphocytes Present (Not Present) A 02/16/17 05:15 Toxic Granulation Present (Not Present) A 02/12/17 01:00 Platelet Estimate Decreased (Normal) L 02/16/17 05:15 Large Platelets Present (Not Present) A 02/15/17 03:41 Immature Plt Fraction 16.3 % (1.1-6.1) H 02/16/17 05:15 Anisocytosis 1+ (Not Present) A 02/16/17 05:15 Microcytosis Present (Not Present) A 02/15/17 03:41 Tear Drop Cells 1+ (Not Present) A 02/14/17 03:40 PT 17.9 Seconds (9.4-12.1) H 02/12/17 01:00 Potassium 5.2 mEq/L (3.5-4.5) H 02/16/17 05:15 BUN 112 mg/dL (8-26) H 02/16/17 05:15 Creatinine 4.41 mg/dL (0.72-1.25) H 02/16/17 05:15 Est GFR ( Amer) 17 (> 60) L 02/16/17 05:15 Est GFR (Non-Af Amer) 14 (> 60) L 02/16/17 05:15 Glucose 198 mg/dL (70-99) H 02/16/17 05:15 POC Glucose 186 (58-89) H 02/16/17 05:18 Calculated Osmolality 329 (280-300) H 02/16/17 05:15 Calcium 7.3 mg/dL (8.6-10.8) L 02/16/17 05:15 Ionized Calcium 0.89 mmol/L (1.15-1.35) L 02/16/17 05:15 Phosphorus 7.5 mg/dL (2.3-4.7) H 02/16/17 05:15 Total Bilirubin 4.1 mg/dL (0.2-1.2) H 02/16/17 05:15 Direct Bilirubin 3.3 mg/dL (0.0-0.5) H 02/16/17 05:15 AST 64 Units/L (5-34) H 02/16/17 05:15 ALT 56 Units/L (0-55) H 02/16/17 05:15 Alkaline Phosphatase 129 Units/L (38-126) H 02/16/17 05:15 Creatine Kinase 605 Units/L (30-200) H 02/13/17 07:57 B-Natriuretic Peptide 231 pg/mL (0-100) H 02/12/17 01:00 Serum Total Protein 5.9 g/dL (6.0-8.3) L 02/16/17 05:15 Albumin 1.9 g/dL (3.5-5.0) L 02/16/17 05:15 Globulin 4.0 g/dL (2.4-3.5) H 02/16/17 05:15 Albumin/Globulin Ratio 0.5 (1.1-2.2) L 02/16/17 05:15 Triglycerides 329 mg/dL (< 150) H 02/12/17 01:00 VLDL Cholesterol, Calc 66 mg/dL (< 31) H 02/12/17 01:00 HDL Cholesterol < 5 mg/dL (40-59) L 02/12/17 01:00 Cholesterol/HDL Ratio 27.0 (0-4.9) H 02/12/17 01:00 25-OH Vitamin D Total 17 ng/mL (30-80) L 02/14/17 03:40 PTH Intact 339.7 pg/ml (8.5-72.5) H 02/14/17 03:40 Urine Color Red (Yellow) A 02/14/17 09:18 Urine Clarity Turbid (Clear) A 02/14/17 09:18 Ur Specific [place] > 1.030 (1.010-1.025) H 02/14/17 09:18 Urine Protein 100 mg/dL (Neg-Trace) H 02/14/17 09:18 Urine Glucose (UA) 100 mg/dL (Normal) H 02/14/17 09:18 Urine Ketones Trace mg/dL (Negative) H 02/14/17 09:18 Urine Blood Large (Negative) H 02/14/17 09:18 Urine Nitrite Positive (Negative) A 02/14/17 09:18 Urine Bilirubin Moderate (Negative) H 02/14/17 09:18 Ur Leukocyte Esterase Large (Negative) H 02/14/17 09:18 Urine Microscopic RBC 15-30 per hpf (0-3) H 02/12/17 10:00 Urine Microscopic WBC 5-15 per hpf (0-3) H 02/12/17 10:00 Ur Squamous Epith Cells Many per lpf (None-Few) H 02/12/17 10:00 Urine Bacteria Moderate per hpf (None-Few) H 02/12/17 10:00 Granular Casts Moderate per lpf (None Seen) H 02/12/17 10:00 Ur Culture Indicated? YES (NO) A 02/14/17 09:18 Staphylococcus sp PCR DETECTED (Not Detect) A 02/13/17 08:17 Staph aureus (PCR) DETECTED (Not Detect) A 02/13/17 08:17 mecA-Methicil Res Gene DETECTED (Not Detect) A 02/13/17 08:17 - Microbiology Findings Microbiology Findings: Microbiology, Last 48 Hours 02/14/17 09:18 Urine Culture - Final Urine,Kidney No growth. 02/13/17 08:17 Blood Culture - Preliminary Peripheral Venipuncture Gram Positive Cocci 02/12/17 10:00 Urine Culture - Final Urine,Clean Catch Klebsiella [email or web address] pneumoniae - Clinical Findings Intake & Output: Intake & Output 02/15/17 02/15/17 02/16/17 15:59 23:59 07:59 Intake Total 987 / 987 526 / 526 311 / 311 Output Total 982 / 982 50 / 50 30 / 30 Balance 5 / 5 476 / 476 281 / 281 Weight 139.8 kg - VTE Documentation of Mechanical Device: Intermittent pneumatic compression device Consult Discharge Plan - Plan Referrals: Simeon Lloyd Jr, MD [Primary Care Provider] - <Jaydon Wilkes - Last Filed: 02/16/17 14:34> Date of Encounter: 02/16/17 Objective PUL Vital signs: Last Vital Signs Temp 99.8 F H 02/16/17 07:47 Pulse 67 02/16/17 06:00 Resp 22 02/16/17 06:00 BP 106/59 02/16/17 06:00 Pulse Ox 97 02/16/17 06:00 Ventilator Settings Ventilator Settings: Ventilator Settings, Last 8 Hours Ventilator Mode VC+ Ventilator Mode VC+ Ventilator Mode VC+ Ventilator Mode VC+ Ventilator Mode VC+ Ventilator Mode VC+ Ventilator Mode VC+ Ventilator Mode VC+ Ventilator Mode VC+ Ventilator Tidal Volume 500 Setting Ventilator Tidal Volume 500 Setting Ventilator Tidal Volume 500 Setting Ventilator Tidal Volume 500 Setting Ventilator Tidal Volume 500 Setting Ventilator Tidal Volume 500 Setting Ventilator Tidal Volume 500 Setting Ventilator Tidal Volume 500 Setting Ventilator Tidal Volume 500 Setting Ventilator Respiratory Rate 22 Setting Ventilator Respiratory Rate 22 Setting Ventilator Respiratory Rate 22 Setting Ventilator Respiratory Rate 22 Setting Ventilator Respiratory Rate 22 Setting Ventilator Respiratory Rate 22 Setting Ventilator Respiratory Rate 22 Setting Ventilator Respiratory Rate 22 Setting Ventilator Respiratory Rate 22 Setting Actual Respiratory Rate 22 Actual Respiratory Rate 22 Actual Respiratory Rate 22 Actual Respiratory Rate 24 Actual Respiratory Rate 22 Actual Respiratory Rate 22 Actual Respiratory Rate 22 Actual Respiratory Rate 22 Actual Respiratory Rate 22 Positive End Expiratory 8 Pressure Positive End Expiratory 8 Pressure Positive End Expiratory 8 Pressure Positive End Expiratory 8 Pressure Positive End Expiratory 8 Pressure Positive End Expiratory 8 Pressure Positive End Expiratory 8 Pressure Positive End Expiratory 8 Pressure Positive End Expiratory 8 Pressure Peak Inspiratory Airway 28 Pressure Peak Inspiratory Airway 28 Pressure Peak Inspiratory Airway 27 Pressure Peak Inspiratory Airway 27 Pressure Peak Inspiratory Airway 26 Pressure Peak Inspiratory Airway 25 Pressure Peak Inspiratory Airway 24 Pressure Peak Inspiratory Airway 22 Pressure Results - Laboratory Findings CBC and BMP: 02/16/17 05:15 02/16/17 05:15 ABG ABG pH 7.34 pH Units (7.32-7.45) 02/15/17 09:05 ABG pCO2 45 mmHg (35-45) 02/15/17 09:05 ABG pO2 90 mmHg (85-104) 02/15/17 09:05 ABG O2 Saturation 96 % (95-98) 02/15/17 09:05 PT/INR, D-dimer PT 17.9 Seconds (9.4-12.1) H 02/12/17 01:00 Abnormal lab findings: Abnormal lab results WBC 20.1 K/mcL (4.3-11.1) H 02/16/17 05:15 RBC 4.09 M/mcL (4.19-5.50) L 02/16/17 05:15 Hgb 11.5 g/dL (12.9-16.9) L 02/16/17 05:15 Hct 36.2 % (37.5-50.1) L 02/16/17 05:15 RDW 18.8 % (11.5-14.5) H 02/16/17 05:15 Plt Count 104 K/mcL (140-400) L 02/16/17 05:15 Immature Gran % 8.5 % (0-4) H 02/16/17 05:15 Metamyelocytes % 2.0 % (0) H 02/11/17 06:30 Myelocytes % 1.0 % (0) H 02/15/17 03:41 Neutrophils # 16.5 K/mcL (1.6-8.9) H 02/16/17 05:15 Nucleated RBCs/100 WBC 0.1 /100 WBC (0) H 02/16/17 05:15 Reactive Lymphocytes Present (Not Present) A 02/16/17 05:15 Toxic Granulation Present (Not Present) A 02/12/17 01:00 Platelet Estimate Decreased (Normal) L 02/16/17 05:15 Large Platelets Present (Not Present) A 02/15/17 03:41 Immature Plt Fraction 16.3 % (1.1-6.1) H 02/16/17 05:15 Anisocytosis 1+ (Not Present) A 02/16/17 05:15 Microcytosis Present (Not Present) A 02/15/17 03:41 Tear Drop Cells 1+ (Not Present) A 02/14/17 03:40 PT 17.9 Seconds (9.4-12.1) H 02/12/17 01:00 Potassium 5.2 mEq/L (3.5-4.5) H 02/16/17 05:15 BUN 112 mg/dL (8-26) H 02/16/17 05:15 Creatinine 4.41 mg/dL (0.72-1.25) H 02/16/17 05:15 Est GFR ( Amer) 17 (> 60) L 02/16/17 05:15 Est GFR (Non-Af Amer) 14 (> 60) L 02/16/17 05:15 Glucose 198 mg/dL (70-99) H 02/16/17 05:15 POC Glucose 186 (58-89) H 02/16/17 05:18 Calculated Osmolality 329 (280-300) H 02/16/17 05:15 Calcium 7.3 mg/dL (8.6-10.8) L 02/16/17 05:15 Ionized Calcium 0.89 mmol/L (1.15-1.35) L 02/16/17 05:15 Phosphorus 7.5 mg/dL (2.3-4.7) H 02/16/17 05:15 Total Bilirubin 4.1 mg/dL (0.2-1.2) H 02/16/17 05:15 Direct Bilirubin 3.3 mg/dL (0.0-0.5) H 02/16/17 05:15 AST 64 Units/L (5-34) H 02/16/17 05:15 ALT 56 Units/L (0-55) H 02/16/17 05:15 Alkaline Phosphatase 129 Units/L (38-126) H 02/16/17 05:15 Creatine Kinase 605 Units/L (30-200) H 02/13/17 07:57 B-Natriuretic Peptide 231 pg/mL (0-100) H 02/12/17 01:00 Serum Total Protein 5.9 g/dL (6.0-8.3) L 02/16/17 05:15 Albumin 1.9 g/dL (3.5-5.0) L 02/16/17 05:15 Globulin 4.0 g/dL (2.4-3.5) H 02/16/17 05:15 Albumin/Globulin Ratio 0.5 (1.1-2.2) L 02/16/17 05:15 Triglycerides 329 mg/dL (< 150) H 02/12/17 01:00 VLDL Cholesterol, Calc 66 mg/dL (< 31) H 02/12/17 01:00 HDL Cholesterol < 5 mg/dL (40-59) L 02/12/17 01:00 Cholesterol/HDL Ratio 27.0 (0-4.9) H 02/12/17 01:00 25-OH Vitamin D Total 17 ng/mL (30-80) L 02/14/17 03:40 PTH Intact 339.7 pg/ml (8.5-72.5) H 02/14/17 03:40 Urine Color Red (Yellow) A 02/14/17 09:18 Urine Clarity Turbid (Clear) A 02/14/17 09:18 Ur Specific [place] > 1.030 (1.010-1.025) H 02/14/17 09:18 Urine Protein 100 mg/dL (Neg-Trace) H 02/14/17 09:18 Urine Glucose (UA) 100 mg/dL (Normal) H 02/14/17 09:18 Urine Ketones Trace mg/dL (Negative) H 02/14/17 09:18 Urine Blood Large (Negative) H 02/14/17 09:18 Urine Nitrite Positive (Negative) A 02/14/17 09:18 Urine Bilirubin Moderate (Negative) H 02/14/17 09:18 Ur Leukocyte Esterase Large (Negative) H 02/14/17 09:18 Urine Microscopic RBC 15-30 per hpf (0-3) H 02/12/17 10:00 Urine Microscopic WBC 5-15 per hpf (0-3) H 02/12/17 10:00 Ur Squamous Epith Cells Many per lpf (None-Few) H 02/12/17 10:00 Urine Bacteria Moderate per hpf (None-Few) H 02/12/17 10:00 Granular Casts Moderate per lpf (None Seen) H 02/12/17 10:00 Ur Culture Indicated? YES (NO) A 02/14/17 09:18 Staphylococcus sp PCR DETECTED (Not Detect) A 02/13/17 08: Staph aureus (PCR) DETECTED (Not Detect) A 02/13/17 08: mecA-Methicil Res Gene DETECTED (Not Detect) A 02/13/17 08:17 - Microbiology Findings Microbiology Findings: Microbiology, Last 48 Hours 02/14/17 09:18 Urine Culture - Final Urine,Kidney No growth. 02/13/17 08:17 Blood Culture - Preliminary Peripheral Venipuncture Gram Positive Cocci 02/12/17 10:00 Urine Culture - Final Urine,Clean Catch Klebsiella pneu.ssp pneumoniae - Clinical Findings Intake & Output: Intake & Output 02/15/17 02/16/17 02/16/17 23:59 07:59 15:59 Intake Total 526 / 526 311 / 311 Output Total 50 / 50 70 / 70 Balance 476 / 476 241 / 241 Weight 139.8 kg - Attending Attestation I examined this patient and my medical decision-making was reviewed with the Resident Physician. I agree with the documented findings, disposition and treatment plan as described except to the extent set forth below. We independently had [id number] contact with the patient Patient seen and examined at bedside Labs, radiology, chart personally reviewed. Management was reviewed during multidisciplinary critical care rounds. BOTTLE CASER: Sedated on vent remains encephalopathic SAT was completed today with preserve neurologic function continue daily SAT trial as clinically able Pulm: Intubated on ventilator acceptable oxygenation and relatively minimal vent settings although failed spontaneous awake trial because of agitation and did not proceed with spontaneous breathing trial we will reassess tomorrow I suspect a significant component of pulmonary edema which could be removed with hemodialysis as blood pressure tolerates Cards: Blood pressure on the lower side requiring as infusion of vasopressor I think this is more related to sedation effect and we will try to wean off sedation as much as possible. 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 He remains in atrial fibrillation is currently rate controlled. FEN-GI: Continue enteral nutrition appreciate nutritional evaluation by the dietary service and we will also continue PPI prophylaxis Renal: AKA requiring RESPIRATORY ASSISTANT plan for HD today he is receiving albumin infusions during dialysis because of modest drops in blood pressure. We will continue to follow electrolytes appreciate nephrology evaluating this patient. The patient was noted to pull out his nephrostomy tube which was reevaluated by urology and interventional radiology replaced the tube today. ID: Patient presented with evidence of severe sepsis and likely shock which has resolved. It appears he has 2 infections one is MRSA bacteremia which encouragingly appears to be improving with treatment of vancomycin and repeat blood cultures were negative. He also appears to have a urinary tract infection complicated by obstructive nephropathy Heme/Onc: Continue DVT prophylaxis Endo: Glucose Monitored Integ/MSK: Skin Care per routine ICU Nursing Protocol to prevent ulcers. Lines: All lines examined without evidence of infection : Dispo: In ICU CODE: Full Code. Although I did not speak to her directly it was noted by the nursing staff that the patient's [id number] had called and upset about the failure of overall improvement in his clinical course and possibility of transfer to a referral center in [place]. I spoke to his and next of kin Yolanda today with the ICU Charge nurse. I gave the a chance to express her concerns and she said that she felt that the level of care was appropriate she felt conflicted about possibility of transferring him. I explained that he does have multiple medical problems and progress has been slower than any of us would want however I feel that we have aggressively pursued his care and that there has been slow but steady improvement each day. I also explained that I did not feel that transfer of care was necessary from an ICU perspective but that I would be happy to arrange transfer if the family requested and that I was always open to a second opinion. Reinforced that critical illness does not resolve often times the patient that we would want but I felt confident in the level of care that we were giving him . At the end of the conversation thanked the ICU staff for the care provided up to this point. The patient is unable or incompetent to participate in making treatment decisions. The discussion was necessary for determining treatment decision. This discussion took place in the ICU. The total meeting time was 15 minutes
--- NOTE | 2017-02-16 07:43 | Nephrology Progress Note ---
Date of Encounter: 02/16/17 Time of Encounter: 07:41 - Assessment and Plan (1) RICH (acute kidney injury) Current Visit: Yes Status: Acute Patient with acute kidney injury and unknown baseline. He remains dialysis dependent. Urine output seems to be increasing slightly. Plan for dialysis today for hyperkalemia and azotemia. If additional dialysis is needed may need to change to continuous dialysis. Adjust medications for renal function. (2) Septic shock Current Visit: Yes Status: Acute Patient with sepsis. He is on pressors. Wean pressors as tolerated. Antibiotics per primary team. Patient also with bacteremia. His echocardiogram shows a possible vegetation on a valve. WBC improving. (3) Ureteral stone with hydronephrosis Current Visit: Yes Status: Acute Status post nephrostomy tube placement. Urology consulted. (4) UTI (urinary tract infection) Current Visit: Yes Status: Acute Appears to be the source of sepsis. Continue antibiotics per primary team. Qualifiers: Urinary tract infection type: acute cystitis Hematuria presence: without hematuria Qualified Code(s): N30.00 - Acute cystitis without hematuria Subjective Principal diagnosis: Sepsis Interval history: Patient was seen and evaluated. He is intubated and sedated. Review of systems is unobtainable. Objective - Vital Signs Vital signs: Vital Signs Temp Pulse Resp BP Pulse Ox 02/16/17 06:00 67 22 106/59 97 02/16/17 05:42 22 106/58 98 02/16/17 05:00 63 22 106/58 98 02/16/17 04:56 98.7 F 02/16/17 04:11 73 24 106/67 99 02/16/17 03:54 22 109/63 95 02/16/17 03:30 70 22 109/63 99 02/16/17 02:00 71 22 88/55 95 02/16/17 01:39 22 92/59 95 02/16/17 01:00 68 22 86/60 94 02/16/17 00:00 81 24 88/55 95 02/15/17 23:55 99.3 F 02/15/17 23:50 22 88/54 94 02/15/17 23:20 68 22 88/55 94 02/15/17 21:30 22 103/58 94 02/15/17 21:03 99.5 F 02/15/17 21:00 63 22 97/61 94 02/15/17 20:20 63 22 100/62 93 02/15/17 19:53 22 101/65 94 02/15/17 19:45 68 02/15/17 19:40 68 22 98/62 93 02/15/17 18:00 60 22 98/57 94 02/15/17 17:06 22 93/52 93 02/15/17 17:00 64 22 93/52 93 02/15/17 16:00 66 22 91/50 94 02/15/17 15:13 22 91/56 95 02/15/17 15:00 61 22 91/56 94 02/15/17 14:30 98.0 F 14 114/71 02/15/17 14:20 97/54 02/15/17 14:05 99/53 02/15/17 14:00 55 22 97/59 95 02/15/17 13:50 94/52 02/15/17 13:35 84/56 02/15/17 13:33 23 84/56 94 02/15/17 13:20 94/48 02/15/17 13:05 84/53 02/15/17 13:00 58 22 87/52 94 02/15/17 12:50 85/47 02/15/17 12:35 79/45 02/15/17 12:20 90/46 02/15/17 12:12 22 91/42 93 02/15/17 12:05 91/42 02/15/17 12:00 61 22 87/49 95 02/15/17 11:50 97.7 F 14 93/54 02/15/17 11:00 98.7 F 77 22 93/63 93 02/15/17 10:58 22 96 02/15/17 10:03 22 99/53 95 02/15/17 10:00 70 22 99/53 94 02/15/17 09:00 66 22 105/63 94 02/15/17 08:00 59 22 92/58 94 02/15/17 07:55 22 166/60 95 Intake and Output 02/15/17 02/15/17 02/16/17 15:59 23:59 07:59 Intake Total 987 / 987 526 / 526 311 / 311 Output Total 982 / 982 50 / 50 30 / 30 Balance 5 / 5 476 / 476 281 / 281 Intake: IV Fluids 100 / 100 274 / 274 200 / 200 FentaNYL (PF) 1,000 MCG In 0.9 100 / 100 100 / 100 % Sodium Chloride 80 ML @ 50 MCG/HR 5 mls/hr IVC CONT JAMIL Rx #:[id number] Levophed 4 MG In Dextrose 5% 254 / 254 250 ML @ 2 MCG/MIN 7.62 mls/hr IVC CONT JAMIL Rx#:[id number] Diprivan 1,000 mg In 100 ml @ 5 100 / 100 MCG/KG/MIN 4.14 mls/hr IVC . Q24H JAMIL Rx#:[id number] Rocephin 2,000 MG In Water for 20 / 20 inj. (sterile) 20 ML @ 600 mls/ hr IVP Q24H JAMIL Rx#:[id number] Oral 0 / 0 Tube Feeding 237 / 237 242 / 242 111 / 111 Free Water 0 / 0 Intake, Rinseback and Flushes 600 / 600 Free Water Intake Amount 50 / 50 10 / 10 0 / 0 Output: Total Dialysis (HD) Output 960 / 960 Right Nephrostomy Catheter 50 / 50 30 / 30 Other: Weight 139.8 kg Blood Glucose* 172 185 186 Hemodialysis Net Fluid Removed 300 (mL) - General Appearance General appearance: Present: well-developed, well-nourished, sedated on ventilator, intubated EENT: Present: ATNC Respiratory: Present: course breath sounds Cardiology: Present: edema, regular rate, regular rhythm Dialysis Vascular Access: Venous Catheter Gastrointestinal: Present: no tenderness, obese Integumentary: Present: warm and dry Additional Comments: Intubated and sedated. Musculoskeletal: Present: no cyanosis Additional Comments: Sedated. - Lab 02/16/17 05:15 02/16/17 05:15 Most recent lab results ABG pH 7.34 pH Units (7.32-7.45) 02/15/17 09:05 ABG pCO2 45 mmHg (35-45) 02/15/17 09:05 ABG pO2 90 mmHg (85-104) 02/15/17 09:05 ABG HCO3 24 mEq/L (21-27) 02/15/17 09:05 ABG O2 Saturation 96 % (95-98) 02/15/17 09:05 Calcium 7.3 mg/dL (8.6-10.8) L 02/16/17 05:15 Phosphorus 7.5 mg/dL (2.3-4.7) H 02/16/17 05:15 Magnesium 2.6 mg/dL (1.6-2.6) 02/16/17 05:15 - VTE Documentation of Mechanical Device: Intermittent pneumatic compression device Consult Discharge Plan - Plan Referrals: Simeon Lloyd Jr, MD [Primary Care Provider] -
[2017-02-16] MEDS ORDERED: CefTRIAXone 2,000 MG VIAL ONE (08:37)
[2017-02-16] MEDS: cefTRIAXone 2,000 MG in Water for inj. (sterile) 20 ML IVP SCH (08:43)
[2017-02-16] MEDS: Sennosides/Docusate Sodium TABLET PO SCH ×2 (09:37→20:24)
[2017-02-16] MEDS: Pantoprazole 40 MG VIAL IVP SCH (09:37)
[2017-02-16] MEDS: Aspirin Enteric Coated 81 MG Tablet PO SCH (09:37)
--- NOTE | 2017-02-16 09:45 | Urology Progress Note ---
Date of Encounter: 02/16/17 Time of Encounter: 09:42 - Assessment and Plan (1) Ureteral stone with hydronephrosis Current Visit: Yes Status: Acute Assessment and plan: nephrostomy tube will need to be replaced at some point. he is stable currently. could also reattempt ureteral stent placement but recently unsuccessful when attempted at the bedside earlier in the week. will discuss with IR timing of replacement. (2) Sepsis Current Visit: Yes Status: Acute Qualifiers: Sepsis type: sepsis due to unspecified organism Qualified Code(s): A41.9 - Sepsis, unspecified organism Progress Note Narrative: still intubated. nurses report nephrostomy tube our overnight. found in his bed this AM Objective Initial Vital Signs Temp Pulse Resp BP Pulse Ox 98.1 F 86 20 93/59 92 02/11/17 06:02 02/11/17 06:02 02/11/17 06:02 02/11/17 06:02 02/11/17 06:02 - General physical appearance Present: chronically ill - Labs 02/16/17 05:15 02/16/17 05:15 Diabetes panel 02/16/17 Range/Units 05:15 Sodium 139 (136-145) mEq/L Potassium 5.2 H (3.5-4.5) mEq/L Chloride 99 (98-109) mEq/L Carbon Dioxide 25 (19-29) mEq/L BUN 112 H (8-26) mg/dL Creatinine 4.41 H (0.72-1.25) mg/dL Glucose 198 H (70-99) mg/dL Calcium 7.3 L (8.6-10.8) mg/dL AST 64 H (5-34) Units/L ALT 56 H (0-55) Units/L Alkaline Phosphatase 129 H (38-126) Units/L Albumin 1.9 L (3.5-5.0) g/dL Calcium panel 02/16/17 Range/Units 05:15 Calcium 7.3 L (8.6-10.8) mg/dL Phosphorus 7.5 H (2.3-4.7) mg/dL Albumin 1.9 L (3.5-5.0) g/dL Pituitary panel 02/16/17 Range/Units 05:15 Sodium 139 (136-145) mEq/L Potassium 5.2 H (3.5-4.5) mEq/L Chloride 99 (98-109) mEq/L Carbon Dioxide 25 (19-29) mEq/L BUN 112 H (8-26) mg/dL Creatinine 4.41 H (0.72-1.25) mg/dL Glucose 198 H (70-99) mg/dL Calcium 7.3 L (8.6-10.8) mg/dL Adrenal panel 02/16/17 Range/Units 05:15 Sodium 139 (136-145) mEq/L Potassium 5.2 H (3.5-4.5) mEq/L Chloride 99 (98-109) mEq/L Carbon Dioxide 25 (19-29) mEq/L BUN 112 H (8-26) mg/dL Creatinine 4.41 H (0.72-1.25) mg/dL Glucose 198 H (70-99) mg/dL Calcium 7.3 L (8.6-10.8) mg/dL Total Bilirubin 4.1 H (0.2-1.2) mg/dL AST 64 H (5-34) Units/L ALT 56 H (0-55) Units/L Alkaline Phosphatase 129 H (38-126) Units/L Albumin 1.9 L (3.5-5.0) g/dL - VTE Documentation of Mechanical Device: Intermittent pneumatic compression device Consult Discharge Plan - Plan Referrals: Simeon Lloyd Jr, MD [Primary Care Provider] -
[2017-02-16] MEDS: Chlorhexidine Rinse 15 ML MOUTHWASH MM SCH ×2 (10:13→20:25)
[2017-02-16] MEDS: Norepinephrine 4 MG in D5% in Water 250 ML IVC SCH ×2 (13:51→23:18)
[2017-02-16] MEDS ORDERED: 0.9 % Sodium Chloride 250 ML IVC PRN (14:33)
[2017-02-16] MEDS ORDERED: 0.9 % Sodium Chloride 1,000 ML PRIME SCH (14:45)
[2017-02-16] MEDS ORDERED: Albumin 25% 25gram/100mL 25 GM/100 ML IV.SOLN IVPB ONE (15:53)
[2017-02-16] MEDS: Albumin 25% 25gram/100mL 25 GM/100 ML IV.SOLN IVC SCH ×2 (15:56→18:16)
[2017-02-17] MEDS: Insulin LISPRO 300 UNITS/3 ML VIAL SQ SCH ×3 (00:01→12:11)
[2017-02-17] MEDS: Lacri-Lube 3.5 GM TUBE BOTH EYES SCH ×4 (00:02→12:12)
[2017-02-17] MEDS: Ipratropium/Albuterol Neb 3 ML IH SCH ×4 (03:45→15:42)
[2017-02-17 04:12] LABS: Alpha 2 Globulin (PEP) 1.21 g/dL (0.48-1.05); Beta Globulin (PEP) 0.64 g/dL (0.48-1.10)
[2017-02-17 04:54] LABS: Basophils # 0.1 K/mcL (0.0-0.2); Basophils % 0.4 %; Eosinophils % 0.2 %; Hematocrit 36.3 % (37.5-50.1); Hemoglobin 11.4 g/dL (12.9-16.9); Immature Granulocytes % 4.9 % (0-4); Lymphocytes # 0.6 K/mcL (0.6-4.6); Mean Corpuscular HGB Conc 31.4 g/dL (31.6-35.5); Mean Corpuscular Hemoglobin 28.1 pg (28.0-33.3); Mean Corpuscular Volume 89.6 fL (83.0-100.0); Mean Platelet Volume 12.9 fL (9.4-12.4); Monocytes # 1.4 K/mcL (0.0-1.3); Neutrophils # 17.2 K/mcL (1.6-8.9); Nucleated Red Blood Cells 0.1 /100 WBC (0); Red Blood Count 4.05 M/mcL (4.19-5.50); Red Cell Distribution Width 18.9 % (11.5-14.5); Segmented Neutrophils % 84.5 %
[2017-02-17 04:55] LABS: Platelet Count 89 K/mcL (140-400)
[2017-02-17] MEDS: *HR* Heparin 5,000 UNIT/ML VIAL SQ SCH (05:02)
[2017-02-17] MEDS: Norepinephrine 4 MG in D5% in Water 250 ML IVC SCH ×2 (05:04→12:09)
[2017-02-17 05:07] LABS: Albumin 2.1 g/dL (3.5-5.0); Albumin/Globulin Ratio 0.6 (1.1-2.2); Bilirubin,Direct 3.4 mg/dL (0.0-0.5); Bilirubin,Indirect 0.8 mg/dL (0.0-1.2); Bilirubin,Total 4.2 mg/dL (0.2-1.2); Globulin 3.5 g/dL (2.4-3.5); Magnesium 2.3 mg/dL (1.6-2.6); Phosphorous 8.1 mg/dL (2.3-4.7); Total Protein 5.6 g/dL (6.0-8.3)
[2017-02-17 06:20] LABS: ABG Base Excess 1 mEq/L (-2 to 3); ABG HCO3 27 mEq/L (21-27); ABG Oxygen Saturation 94 % (95-98); ABG PCO2 49 mmHg (35-45); ABG PH 7.35 pH Units (7.32-7.45); ABG PO2 75 mmHg (85-104); ABG TCO2 29 mEq/L (20-26); Blood Gas Modality PRVC; Blood Gas PEEP 5 cm H2O; Blood Gas Respiration Rate 16; Blood Gas VT 500 cc
[2017-02-17] MEDS: FentaNYL (PF) 1,000 MCG in 0.9 % Sodium Chloride 80 ML IVC SCH (06:34)
--- NOTE | 2017-02-17 07:15 | Pulmonology Progress Note ---
<Ekaterina Odom - Last Filed: 02/17/17 10:22> Date of Encounter: 02/17/17 Time of Encounter: 07:15 Assessment and Plan (1) Acute respiratory failure with hypercapnia Current Visit: Yes Status: Acute Likely 2/2 to sepsis with MRSA bacteremia. Patient remains intubated on mechanical ventilation. ABG reviewed with attending this AM. Interval 02/17/17 CXR demonstrating complete opacification of the left hemithorax. (2) Severe sepsis Current Visit: Yes Status: Acute Final Blood cultures positive for MRSA. Urine culture shows Klebsiella. WBC slightly up-trended from yesterday. Erythematous region noted yesterday on L anterior chest in afternoon, on physical exam appears stable. Will Discuss with attending, plan for CT (3) Vnczp-[id number] kidney injury Current Visit: Yes Status: Acute Creatinine downtrending. Likely multifactorial in the setting of obstructive uropathy due to kidney stone as well as possible ATN. Nephrology on consult, appreciate recs. Continuous veno-venous hemofilration today, with no plan for fluid removal today, per nephro. Will Continue monitor electrolytes and urine output. Qualifiers: Acute renal failure type: unspecified Chronic kidney disease stage: stage 3 (moderate) Qualified Code(s): N17.9 - Acute kidney failure, unspecified; N18.3 - Chronic kidney disease, stage 3 (moderate); N18.3 - Chronic kidney disease, stage 3 (moderate) (4) Ureteral stone with hydronephrosis Current Visit: Yes Status: Acute Nephrostomy tube re-placed on 02/16/17, tube today in place. (5) Pneumonia Current Visit: Yes Status: Acute As above, WBC uptrending. 02/17/17 CXR for this AM with new airspace disease identified in the right base and interval changes on CXR likely contributing factors. Qualifiers: Pneumonia type: due to unspecified organism Laterality: right Lung location: upper lobe of lung Qualified Code(s): J18.1 - Lobar pneumonia, unspecified organism (6) Effusion of sternoclavicular joint Current Visit: Yes Status: Acute CT scan of the chest: displacement of the sternoclavicular joint with mild fluid collection. Orthopedic service consulted. (7) Hyperglycemia Current Visit: Yes Status: Acute Continue management. (8) DVT prophylaxis Current Visit: Yes Status: Acute Continue heparin SubQ Subjective Principal diagnosis: Sepsis Interval history: Acute event overnight, according to nurse report: OG tube had migrated roughly 2.5 inches out of patient's mouth overnight. X-ray was obtained, with new interval complete opacification of the left hemithorax demonstrated. Objective PUL Vital signs: Last Vital Signs Temp 98.6 F 02/17/17 03:58 Pulse 65 02/17/17 06:00 Resp 18 02/17/17 06:20 BP 80/57 02/17/17 06:20 Pulse Ox 95 02/17/17 06:20 General appearance: no acute distress ENT: oropharynx dry Auscultation: bilateral: diminished breath sounds Cardiovascular: irregular rhythm Gastrointestinal: hypoactive bowel sounds, non-tender, other (ventral hernia stable in size, no erythematous changes ) Integumentary: erythema (on L anterior chest, area marked approx 3 x 5 cm, stable overnight, with no associated color changes) Extremities: edema unable to assess due to mental status Ventilator Settings Ventilator Settings: Ventilator Settings, Last 8 Hours Ventilator Mode VC+ Ventilator Mode VC+ Ventilator Mode VC+ Ventilator Mode VC+ Ventilator Mode VC+ Ventilator Mode VC+ Ventilator Mode VC+ Ventilator Mode VC+ Ventilator Mode VC+ Ventilator Mode VC+ Ventilator Mode VC+ Ventilator Mode VC+ Ventilator Mode VC+ Ventilator Tidal Volume 500 Setting Ventilator Tidal Volume 500 Setting Ventilator Tidal Volume 500 Setting Ventilator Tidal Volume 500 Setting Ventilator Tidal Volume 500 Setting Ventilator Tidal Volume 500 Setting Ventilator Tidal Volume 500 Setting Ventilator Tidal Volume 500 Setting Ventilator Tidal Volume 500 Setting Ventilator Tidal Volume 500 Setting Ventilator Tidal Volume 500 Setting Ventilator Tidal Volume 500 Setting Ventilator Tidal Volume 500 Setting Ventilator Respiratory Rate 16 Setting Ventilator Respiratory Rate 16 Setting Ventilator Respiratory Rate 16 Setting Ventilator Respiratory Rate 16 Setting Ventilator Respiratory Rate 16 Setting Ventilator Respiratory Rate 16 Setting Ventilator Respiratory Rate 16 Setting Ventilator Respiratory Rate 16 Setting Ventilator Respiratory Rate 16 Setting Ventilator Respiratory Rate 16 Setting Ventilator Respiratory Rate 16 Setting Ventilator Respiratory Rate 16 Setting Ventilator Respiratory Rate 16 Setting Actual Respiratory Rate 18 Actual Respiratory Rate 18 Actual Respiratory Rate 18 Actual Respiratory Rate 18 Actual Respiratory Rate 18 Actual Respiratory Rate 22 Actual Respiratory Rate 18 Actual Respiratory Rate 20 Actual Respiratory Rate 16 Actual Respiratory Rate 17 Actual Respiratory Rate 16 Actual Respiratory Rate 19 Positive End Expiratory 5 Pressure Positive End Expiratory 5 Pressure Positive End Expiratory 5 Pressure Positive End Expiratory 5 Pressure Positive End Expiratory 5 Pressure Positive End Expiratory 5 Pressure Positive End Expiratory 5 Pressure Positive End Expiratory 5 Pressure Positive End Expiratory 5 Pressure Positive End Expiratory 5 Pressure Positive End Expiratory 5 Pressure Positive End Expiratory 5 Pressure Peak Inspiratory Airway 27 Pressure Peak Inspiratory Airway 27 Pressure Peak Inspiratory Airway 27 Pressure Peak Inspiratory Airway 27 Pressure Peak Inspiratory Airway 25 Pressure Peak Inspiratory Airway 25 Pressure Peak Inspiratory Airway 23 Pressure Peak Inspiratory Airway 26 Pressure Peak Inspiratory Airway 25 Pressure Peak Inspiratory Airway 22 Pressure Peak Inspiratory Airway 20 Pressure Results - Laboratory Findings CBC and BMP: 02/17/17 04:40 02/17/17 04:40 ABG ABG pH 7.35 pH Units (7.32-7.45) 02/17/17 06:16 ABG pCO2 49 mmHg (35-45) H 02/17/17 06:16 ABG pO2 75 mmHg (85-104) L 02/17/17 06:16 ABG O2 Saturation 94 % (95-98) L 02/17/17 06:16 PT/INR, D-dimer PT 17.9 Seconds (9.4-12.1) H 02/12/17 01:00 Abnormal lab findings: Abnormal lab results WBC 20.4 K/mcL (4.3-11.1) H 02/17/17 04:40 RBC 4.05 M/mcL (4.19-5.50) L 02/17/17 04:40 Hgb 11.4 g/dL (12.9-16.9) L 02/17/17 04:40 Hct 36.3 % (37.5-50.1) L 02/17/17 04:40 MCHC 31.4 g/dL (31.6-35.5) L 02/17/17 04:40 RDW 18.9 % (11.5-14.5) H 02/17/17 04:40 Plt Count 89 K/mcL (140-400) L 02/17/17 04:40 MPV 12.9 fL (9.4-12.4) H 02/17/17 04:40 Immature Gran % 4.9 % (0-4) H 02/17/17 04:40 Metamyelocytes % 2.0 % (0) H 02/11/17 06:30 Myelocytes % 1.0 % (0) H 02/15/17 03:41 Neutrophils # 17.2 K/mcL (1.6-8.9) H 02/17/17 04:40 Monocytes # 1.4 K/mcL (0.0-1.3) H 02/17/17 04:40 Nucleated RBCs/100 WBC 0.1 /100 WBC (0) H 02/17/17 04:40 Reactive Lymphocytes Present (Not Present) A 02/16/17 05:15 Toxic Granulation Present (Not Present) A 02/12/17 01:00 Platelet Estimate Decreased (Normal) L 02/16/17 05:15 Large Platelets Present (Not Present) A 02/15/17 03:41 Immature Plt Fraction 16.3 % (1.1-6.1) H 02/16/17 05:15 Anisocytosis 1+ (Not Present) A 02/16/17 05:15 Microcytosis Present (Not Present) A 02/15/17 03:41 Tear Drop Cells 1+ (Not Present) A 02/14/17 03:40 PT 17.9 Seconds (9.4-12.1) H 02/12/17 01:00 ABG pCO2 49 mmHg (35-45) H 02/17/17 06:16 ABG pO2 75 mmHg (85-104) L 02/17/17 06:16 ABG Total CO2 29 mEq/L (20-26) H 02/17/17 06:16 ABG O2 Saturation 94 % (95-98) L 02/17/17 06:16 Potassium 5.2 mEq/L (3.5-4.5) H 02/16/17 05:15 BUN 112 mg/dL (8-26) H 02/16/17 05:15 Creatinine 4.41 mg/dL (0.72-1.25) H 02/16/17 05:15 Est GFR ( Amer) 17 (> 60) L 02/16/17 05:15 Est GFR (Non-Af Amer) 14 (> 60) L 02/16/17 05:15 Glucose 198 mg/dL (70-99) H 02/16/17 05:15 POC Glucose 138 (58-89) H 02/17/17 04:44 Calculated Osmolality 329 (280-300) H 02/16/17 05:15 Calcium 7.3 mg/dL (8.6-10.8) L 02/16/17 05:15 Ionized Calcium 0.83 mmol/L (1.15-1.35) L 02/17/17 04:40 Phosphorus 8.1 mg/dL (2.3-4.7) H 02/17/17 04:40 Total Bilirubin 4.2 mg/dL (0.2-1.2) H 02/17/17 04:40 Direct Bilirubin 3.4 mg/dL (0.0-0.5) H 02/17/17 04:40 AST 60 Units/L (5-34) H 02/17/17 04:40 ALT 63 Units/L (0-55) H 02/17/17 04:40 Creatine Kinase 605 Units/L (30-200) H 02/13/17 07:57 B-Natriuretic Peptide 231 pg/mL (0-100) H 02/12/17 01:00 Serum Total Protein 5.6 g/dL (6.0-8.3) L 02/17/17 04:40 Albumin 2.1 g/dL (3.5-5.0) L 02/17/17 04:40 Albumin/Globulin Ratio 0.6 (1.1-2.2) L 02/17/17 04:40 Triglycerides 329 mg/dL (< 150) H 02/12/17 01:00 VLDL Cholesterol, Calc 66 mg/dL (< 31) H 02/12/17 01:00 HDL Cholesterol < 5 mg/dL (40-59) L 02/12/17 01:00 Cholesterol/HDL Ratio 27.0 (0-4.9) H 02/12/17 01:00 25-OH Vitamin D Total 17 ng/mL (30-80) L 02/14/17 03:40 PTH Intact 339.7 pg/ml (8.5-72.5) H 02/14/17 03:40 Urine Color Red (Yellow) A 02/14/17 09:18 Urine Clarity Turbid (Clear) A 02/14/17 09:18 Ur Specific Delta > 1.030 (1.010-1.025) H 02/14/17 09:18 Urine Protein 100 mg/dL (Neg-Trace) H 02/14/17 09:18 Urine Glucose (UA) 100 mg/dL (Normal) H 02/14/17 09:18 Urine Ketones Trace mg/dL (Negative) H 02/14/17 09:18 Urine Blood Large (Negative) H 02/14/17 09:18 Urine Nitrite Positive (Negative) A 02/14/17 09:18 Urine Bilirubin Moderate (Negative) H 02/14/17 09:18 Ur Leukocyte Esterase Large (Negative) H 02/14/17 09:18 Urine Microscopic RBC 15-30 per hpf (0-3) H 02/12/17 10:00 Urine Microscopic WBC 5-15 per hpf (0-3) H 02/12/17 10:00 Ur Squamous Epith Cells Many per lpf (None-Few) H 02/12/17 10:00 Urine Bacteria Moderate per hpf (None-Few) H 02/12/17 10:00 Granular Casts Moderate per lpf (None Seen) H 02/12/17 10:00 Ur Culture Indicated? YES (NO) A 02/14/17 09:18 Free [place] LC, Quant 2.19 mg/dL (0.33-1.94) H 02/13/17 11:32 Free Lambda LC, Quant 5.11 mg/dL (0.57-2.63) H 02/13/17 11:32 Staphylococcus sp PCR DETECTED (Not Detect) A 02/13/17 08:17 Staph aureus (PCR) DETECTED (Not Detect) A 02/13/17 08:17 mecA-Methicil Res Gene DETECTED (Not Detect) A 02/13/17 08:17 - Microbiology Findings Microbiology Findings: Microbiology, Last 48 Hours 02/16/17 23:30 Sputum Culture - Preliminary Sputum 02/13/17 08:17 Blood Culture - Final Peripheral Venipuncture Methicillin Resistant S.aureus 02/13/17 08:17 Blood Culture - Final Peripheral Venipuncture Methicillin Resistant S.aureus 02/14/17 09:18 Urine Culture - Final Urine,Kidney No growth. - Clinical Findings Intake & Output: Intake & Output 02/16/17 02/16/17 02/17/17 15:59 23:59 07:59 Intake Total 1175 / 1175 1161 / 1161 454 / 454 Output Total 755 / 755 105 / 105 Balance 1150 / 1150 406 / 406 349 / 349 - VTE Documentation of Mechanical Device: Intermittent pneumatic compression device Consult Discharge Plan - Plan Referrals: Simeon Lloyd Jr, MD [Primary Care Provider] - <Jaydon Wilkes W - Last Filed: 02/17/17 13:09> Date of Encounter: 02/17/17 Objective PUL Vital signs: Last Vital Signs Temp 98.9 F 02/17/17 07:59 Pulse 65 02/17/17 06:00 Resp 18 02/17/17 06:20 BP 80/57 02/17/17 06:20 Pulse Ox 95 02/17/17 06:20 Ventilator Settings Ventilator Settings: Ventilator Settings, Last 8 Hours Ventilator Mode VC+ Ventilator Mode VC+ Ventilator Mode VC+ Ventilator Mode VC+ Ventilator Mode VC+ Ventilator Mode VC+ Ventilator Mode VC+ Ventilator Mode VC+ Ventilator Mode VC+ Ventilator Mode VC+ Ventilator Tidal Volume 500 Setting Ventilator Tidal Volume 500 Setting Ventilator Tidal Volume 500 Setting Ventilator Tidal Volume 500 Setting Ventilator Tidal Volume 500 Setting Ventilator Tidal Volume 500 Setting Ventilator Tidal Volume 500 Setting Ventilator Tidal Volume 500 Setting Ventilator Tidal Volume 500 Setting Ventilator Tidal Volume 500 Setting Ventilator Respiratory Rate 16 Setting Ventilator Respiratory Rate 16 Setting Ventilator Respiratory Rate 16 Setting Ventilator Respiratory Rate 16 Setting Ventilator Respiratory Rate 16 Setting Ventilator Respiratory Rate 16 Setting Ventilator Respiratory Rate 16 Setting Ventilator Respiratory Rate 16 Setting Ventilator Respiratory Rate 16 Setting Ventilator Respiratory Rate 16 Setting Actual Respiratory Rate 18 Actual Respiratory Rate 18 Actual Respiratory Rate 18 Actual Respiratory Rate 18 Actual Respiratory Rate 18 Actual Respiratory Rate 22 Actual Respiratory Rate 18 Actual Respiratory Rate 20 Actual Respiratory Rate 16 Positive End Expiratory 5 Pressure Positive End Expiratory 5 Pressure Positive End Expiratory 5 Pressure Positive End Expiratory 5 Pressure Positive End Expiratory 5 Pressure Positive End Expiratory 5 Pressure Positive End Expiratory 5 Pressure Positive End Expiratory 5 Pressure Positive End Expiratory 5 Pressure Peak Inspiratory Airway 27 Pressure Peak Inspiratory Airway 27 Pressure Peak Inspiratory Airway 27 Pressure Peak Inspiratory Airway 27 Pressure Peak Inspiratory Airway 25 Pressure Peak Inspiratory Airway 25 Pressure Peak Inspiratory Airway 23 Pressure Peak Inspiratory Airway 26 Pressure Peak Inspiratory Airway 25 Pressure Results - Laboratory Findings CBC and BMP: 02/17/17 04:40 02/17/17 04:40 ABG ABG pH 7.35 pH Units (7.32-7.45) 02/17/17 06:16 ABG pCO2 49 mmHg (35-45) H 02/17/17 06:16 ABG pO2 75 mmHg (85-104) L 02/17/17 06:16 ABG O2 Saturation 94 % (95-98) L 02/17/17 06:16 PT/INR, D-dimer PT 17.9 Seconds (9.4-12.1) H 02/12/17 01:00 Abnormal lab findings: Abnormal lab results WBC 20.4 K/mcL (4.3-11.1) H 02/17/17 04:40 RBC 4.05 M/mcL (4.19-5.50) L 02/17/17 04:40 Hgb 11.4 g/dL (12.9-16.9) L 02/17/17 04:40 Hct 36.3 % (37.5-50.1) L 02/17/17 04:40 MCHC 31.4 g/dL (31.6-35.5) L 02/17/17 04:40 RDW 18.9 % (11.5-14.5) H 02/17/17 04:40 Plt Count 89 K/mcL (140-400) L 02/17/17 04:40 MPV 12.9 fL (9.4-12.4) H 02/17/17 04:40 Immature Gran % 4.9 % (0-4) H 02/17/17 04:40 Metamyelocytes % 2.0 % (0) H 02/11/17 06:30 Myelocytes % 1.0 % (0) H 02/15/17 03:41 Neutrophils # 17.2 K/mcL (1.6-8.9) H 02/17/17 04:40 Monocytes # 1.4 K/mcL (0.0-1.3) H 02/17/17 04:40 Nucleated RBCs/100 WBC 0.1 /100 WBC (0) H 02/17/17 04:40 Reactive Lymphocytes Present (Not Present) A 02/16/17 05:15 Toxic Granulation Present (Not Present) A 02/12/17 01:00 Platelet Estimate Decreased (Normal) L 02/16/17 05:15 Large Platelets Present (Not Present) A 02/15/17 03:41 Immature Plt Fraction 16.3 % (1.1-6.1) H 02/16/17 05:15 Anisocytosis 1+ (Not Present) A 02/16/17 05:15 Microcytosis Present (Not Present) A 02/15/17 03:41 Tear Drop Cells 1+ (Not Present) A 02/14/17 03:40 PT 17.9 Seconds (9.4-12.1) H 02/12/17 01:00 ABG pCO2 49 mmHg (35-45) H 02/17/17 06:16 ABG pO2 75 mmHg (85-104) L 02/17/17 06:16 ABG Total CO2 29 mEq/L (20-26) H 02/17/17 06:16 ABG O2 Saturation 94 % (95-98) L 02/17/17 06:16 Potassium 5.5 mEq/L (3.5-4.5) H 02/17/17 04:40 Chloride 97 mEq/L (98-109) L 02/17/17 04:40 BUN 98 mg/dL (8-26) H 02/17/17 04:40 Creatinine 4.01 mg/dL (0.72-1.25) H 02/17/17 04:40 Est GFR ( Amer) 18 (> 60) L 02/17/17 04:40 Est GFR (Non-Af Amer) 15 (> 60) L 02/17/17 04:40 Glucose 153 mg/dL (70-99) H 02/17/17 04:40 POC Glucose 138 (58-89) H 02/17/17 04:44 Calculated Osmolality 320 (280-300) H 02/17/17 04:40 Calcium 6.7 mg/dL (8.6-10.8) L 02/17/17 04:40 Ionized Calcium 0.83 mmol/L (1.15-1.35) L 02/17/17 04:40 Phosphorus 8.1 mg/dL (2.3-4.7) H 02/17/17 04:40 Total Bilirubin 4.2 mg/dL (0.2-1.2) H 02/17/17 04:40 Direct Bilirubin 3.4 mg/dL (0.0-0.5) H 02/17/17 04:40 AST 60 Units/L (5-34) H 02/17/17 04:40 ALT 63 Units/L (0-55) H 02/17/17 04:40 Creatine Kinase 605 Units/L (30-200) H 02/13/17 07:57 B-Natriuretic Peptide 231 pg/mL (0-100) H 02/12/17 01:00 Serum Total Protein 5.6 g/dL (6.0-8.3) L 02/17/17 04:40 Albumin 2.1 g/dL (3.5-5.0) L 02/17/17 04:40 Albumin/Globulin Ratio 0.6 (1.1-2.2) L 02/17/17 04:40 Triglycerides 329 mg/dL (< 150) H 02/12/17 01:00 VLDL Cholesterol, Calc 66 mg/dL (< 31) H 02/12/17 01:00 HDL Cholesterol < 5 mg/dL (40-59) L 02/12/17 01:00 Cholesterol/HDL Ratio 27.0 (0-4.9) H 02/12/17 01:00 25-OH Vitamin D Total 17 ng/mL (30-80) L 02/14/17 03:40 PTH Intact 339.7 pg/ml (8.5-72.5) H 02/14/17 03:40 Urine Color Red (Yellow) A 02/14/17 09:18 Urine Clarity Turbid (Clear) A 02/14/17 09:18 Ur Specific Delta > 1.030 (1.010-1.025) H 02/14/17 09:18 Urine Protein 100 mg/dL (Neg-Trace) H 02/14/17 09:18 Urine Glucose (UA) 100 mg/dL (Normal) H 02/14/17 09:18 Urine Ketones Trace mg/dL (Negative) H 02/14/17 09:18 Urine Blood Large (Negative) H 02/14/17 09:18 Urine Nitrite Positive (Negative) A 02/14/17 09:18 Urine Bilirubin Moderate (Negative) H 02/14/17 09:18 Ur Leukocyte Esterase Large (Negative) H 02/14/17 09:18 Urine Microscopic RBC 15-30 per hpf (0-3) H 02/12/17 10:00 Urine Microscopic WBC 5-15 per hpf (0-3) H 02/12/17 10:00 Ur Squamous Epith Cells Many per lpf (None-Few) H 02/12/17 10:00 Urine Bacteria Moderate per hpf (None-Few) H 02/12/17 10:00 Granular Casts Moderate per lpf (None Seen) H 02/12/17 10:00 Ur Culture Indicated? YES (NO) A 02/14/17 09:18 Free [place] LC, Quant 2.19 mg/dL (0.33-1.94) H 02/13/17 11:32 Free Lambda LC, Quant 5.11 mg/dL (0.57-2.63) H 02/13/17 11:32 Staphylococcus sp PCR DETECTED (Not Detect) A 02/13/17 08:17 Staph aureus (PCR) DETECTED (Not Detect) A 02/13/17 08:17 mecA-Methicil Res Gene DETECTED (Not Detect) A 02/13/17 08:17 - Microbiology Findings Microbiology Findings: Microbiology, Last 48 Hours 02/16/17 23:30 Sputum Culture - Preliminary Sputum 02/13/17 08:17 Blood Culture - Final Peripheral Venipuncture Methicillin Resistant S.aureus 02/13/17 08:17 Blood Culture - Final Peripheral Venipuncture Methicillin Resistant S.aureus 02/14/17 09:18 Urine Culture - Final Urine,Kidney No growth. - Clinical Findings Intake & Output: Intake & Output 02/16/17 02/17/17 02/17/17 23:59 07:59 15:59 Intake Total 1161 / 1161 454 / 454 Output Total 755 / 755 175 / 175 Balance 406 / 406 279 / 279 - Attending Attestation I examined this patient and my medical decision-making was reviewed with the Resident Physician. I agree with the documented findings, disposition and treatment plan as described except to the extent set forth below. We independently had ikzu-[id number] contact with the patient I spent 40min of Critical Care time with this patient. It involved decision making of high complexity to assess, manipulate, and support vital organ system failure and/or to prevent further life threatening deterioration of the patient' s condition. The time involved in the performance of separately reportable procedures was not counted toward critical care time . Patient seen and examined at bedside Labs, radiology, chart personally reviewed. Management was reviewed during multidisciplinary critical care rounds. Subjective: Overnight the OG enteric tube was dislodged and suspected aspiration happened as a result this was further reinforced by today's chest x-ray which was notable for opacification of the left hemithorax. Encouragingly ventilator requirements with regards to oxygenation and ventilation have been stable. Mean arterial pressure was lower overnight requiring increase amount of vasopressors however they have been able to be weaned down significantly to near 11/18 levels. Neuro: Neurologically the patient remained sedated on the ventilator with failure of spontaneously awake trial secondary to agitation. We have restarted on low- dose infusion of propofol and fentanyl for goal [place] 2-3. There is been no change in his neurological status he does spontaneously move all extremities well clear evidence of focal weakness and remains delirious. RESP: From a respiratory standpoint he is intubated on the ventilator acceptable oxygenation and ventilation a day on 50% FiO2 and PEEP of 5 he is noted to have opacification of the left hemithorax for which there was strong concern for aspiration. After obtaining consent from the I proceeded with bronchoscopy at the bedside and suctioned out copious thick secretions that were mucoid in nature but likely mixed with tube feedings from the left mainstem bronchus into the left lower lobe and subsequently performed bronchoalveolar lavage in the left lower lobe. The right lung itself outside of some erythema was otherwise normal without any significant mucoid impaction. He is not currently a candidate for spontaneous breathing trial because of critical illness. He has a moderate left-sided pleural effusion which I think is secondary to capillary leak without complex features suggestive of empyema. Cardio: Remains hypotensive with concern for vasodilatory shock secondary to sepsis. We are repeating a lactate today I suspect there is still a component of sedation related hypotension but the persistent nature of this is concerning for worsening infection. His underlying rhythm is atrial fibrillation which is rate controlled he is not on anticoagulation for this. He does have evidence of a mitral valve vegetation as discovered by transesophageal echocardiogram without any other evidence of significant valvular dysfunction or electrical conductance abnormality FEN/GI He continues to receive enteral nutrition through a oral gastric tube which has been held for procedure and for recent aspiration in the is prudent to hold this for the next 24 hours will continue PPI prophylaxis to prevent stress ulcers. We will continue on a scheduled bowel regimen while receiving infusion of narcotics. Incidentally noted on CT scan of the abdomen was stranding which is nonspecific but may have represented pancreatitis I have added on a lipase to today's labs to further evaluate for this in addition acute cholecystitis is in the differential although he has a mild transaminitis alkaline phosphatase is within normal limits I think this is less likely. Renal; He has acute kidney injury with progression to ATN this is multifactorial but is requiring [facility] nephrology plans for continuous renal replacement therapy today that is currently on hold because of transfer of the patient to a referral center. In addition he has evidence of a obstructive nephropathy for which nephrostomy tube and then placed he remains oliguric. We will continue to monitor his electrolytes and they are being replaced per protocol ID: Patient has had persistent leukocytosis which I feel is related to his MRSA infection despite repeat blood cultures which have been negative. Given clinical course I proceeded with daniel CT of the neck chest abdomen and pelvis with contrast. This was notable for worsening evidence of chest wall inflammation/infection and possible anterior mediastinal fluid collection including abscess there is no clear evidence of mediastinitis on the CT scan per the radiology report. I have attempted to keep his vancomycin trough around 20 for this reason and we have been fairly successful at doing so balanced by his need for renal replacement therapy. In addition he has a Klebsiella urinary tract infection for which he is being covered with ceftriaxone this is in the context of obstructing nephropathy status post nephrostomy placement. As mentioned repeat cultures have all been negative. I feel that his failure to progress and persistent leukocytosis would warrant infectious disease consultation which is not available at the current time in this hospital in addition he may need surgical or interventional radiology evaluation for this possible abscess of the anterior mediastinum I feel that transfer to a referral center for further evaluation is warranted. His glucose will be continued to be monitored per protocol and bolus insulin can be given. He is receiving DVT prophylaxis I have updated his and had a meeting with her along with the nursing staff for approximately 15 minutes or outlined the clinical course and my recommendations for transfer for further evaluation she is in agreement and thanked our staff for help I spoke to the medical intensive care unit attending physician at [facility] who graciously agreed to accept the patient in transfer. His CODE STATUS remains full.
[2017-02-17 07:40] LABS: Calcium 6.7 mg/dL (8.6-10.8); Potassium 5.5 mEq/L (3.5-4.5)
[2017-02-17] MEDS ORDERED: *HR* Heparin 5,000 UNIT/ML VIAL IV PRN (08:12)
[2017-02-17] MEDS ORDERED: *HR* Alteplase (Cathflo) 2 MG VIAL IVP PRN (08:12)
[2017-02-17] MEDS ORDERED: HEPARIN PRIME SCH (08:15)
[2017-02-17] MEDS ORDERED: PrismaSATE BGK 2/0 5,000 ML CRRT SCH (08:15)
[2017-02-17] MEDS ORDERED: PrismaSATE BGK 4/2.5 5,000 ML CRRT SCH ×2 (08:15)
[2017-02-17] MEDS ORDERED: SODIUM CHLORIDE 0.9% PRIME SCH (08:15)
[2017-02-17] MEDS: Sennosides/Docusate Sodium TABLET PO SCH (08:23)
[2017-02-17] MEDS: Pantoprazole 40 MG VIAL IVP SCH (08:23)
[2017-02-17] MEDS: Chlorhexidine Rinse 15 ML MOUTHWASH MM SCH (08:23)
[2017-02-17] MEDS: cefTRIAXone 2,000 MG in Water for inj. (sterile) 20 ML IVP SCH (08:23)
[2017-02-17] MEDS: Aspirin Enteric Coated 81 MG Tablet PO SCH (08:24)
[2017-02-17 09:48] LABS: Immunoglobulin A 162 mg/dL (68-408); Immunoglobulin G 820 mg/dL (768-1632); Immunoglobulin M 24 mg/dL (35-263)
[2017-02-17 09:49] LABS: IFE Reflexed IFE Done
--- NOTE | 2017-02-17 10:04 | Nephrology Progress Note ---
Date of Encounter: 02/17/17 Time of Encounter: 09:55 - Assessment and Plan (1) RICH (acute kidney injury) Status: Acute Patient with multifactorial acute kidney injury and unknown baseline. He remains dialysis dependent. Urine output seems to be increasing slightly, but he remains oliguric. Will start CVVHDF today for hyperkalemia and azotemia. Adjust medications for renal function. (2) Septic shock Status: Acute Patient with severe sepsis. He is on pressors. Wean pressors as tolerated. Antibiotics per primary team. Patient also with bacteremia. His echocardiogram shows a possible vegetation on a valve. CT scan today Discussed with Dr. Wilkes. (3) Ureteral stone with hydronephrosis Status: Acute Status post nephrostomy tube placement. Urology following. . (4) Anemia Status: Acute Per primary team. Qualifiers: Qualified Code(s): D64.9 - Anemia, unspecified Subjective Principal diagnosis: Sepsis Interval history: Patient was seen and evaluated. He is intubated and sedated. Review of systems is unobtainable. Objective - Vital Signs Vital signs: Vital Signs Temp Pulse Resp BP Pulse Ox 02/17/17 09:03 80 20 103/65 93 02/17/17 08:23 98.4 F 75 20 95/58 93 02/17/17 07:59 98.9 F 02/17/17 07:44 22 110/71 92 02/17/17 06:20 18 80/57 95 02/17/17 06:00 65 18 96/50 94 02/17/17 05:00 75 18 84/54 94 02/17/17 04:00 69 18 96/56 93 02/17/17 03:58 98.6 F 02/17/17 03:45 18 105/64 93 02/17/17 03:30 78 18 101/60 94 02/17/17 02:00 71 18 87/55 94 02/17/17 01:34 20 94/61 95 02/17/17 01:00 83 16 95/55 94 02/17/17 00:00 99.5 F 69 16 89/50 93 02/16/17 23:45 70 16 97/53 96 02/16/17 23:30 19 90/52 92 02/16/17 22:00 89 16 106/62 95 02/16/17 21:40 18 93/59 96 02/16/17 21:00 82 16 123/68 96 02/16/17 20:30 98.3 F 82 16 106/64 02/16/17 20:00 98.4 F 75 16 91/54 100 17 19:55 102/68 17 19:47 17 106/68 98 02/16/17 19:45 71 16 109/65 99 02/16/17 19:40 109/65 17 19:25 103/58 02/16/17 19:10 101/67 17 18:55 101/64 02/16/17 18:40 102/64 02/16/17 18:25 90/51 02/16/17 18:10 103/71 02/16/17 18:00 74 16 89/73 99 02/16/17 17:55 98.6 F 16 101/66 02/16/17 17:43 18 103/71 99 02/16/17 17:00 73 16 112/70 99 02/16/17 16:45 96/54 02/16/17 16:35 101/56 02/16/17 16:29 98.6 F 02/16/17 16:20 100/54 02/16/17 16:05 96/61 02/16/17 16:00 64 15 103/71 98 02/16/17 15:50 98.6 F 18 94/44 02/16/17 15:09 16 103/71 97 02/16/17 15:00 73 15 102/68 96 02/16/17 14:00 82 16 131/84 96 02/16/17 13:00 67 16 113/62 95 02/16/17 12:25 98.2 F 02/16/17 11:02 16 98/59 97 02/16/17 11:00 69 18 98/59 98 02/16/17 10:00 68 19 101/62 97 Intake and Output 02/16/17 02/17/17 02/17/17 23:59 07:59 15:59 Intake Total 1161 / 1161 454 / 454 60 / 60 Output Total 755 / 755 175 / 175 Balance 406 / 406 279 / 279 60 / 60 Intake: IV Fluids 454 / 454 454 / 454 FentaNYL (PF) 1,000 MCG In 0.9 100 / 100 100 / 100 % Sodium Chloride 80 ML @ 50 MCG/HR 5 mls/hr IVC CONT JAMIL Rx #:[id number] Levophed 4 MG In Dextrose 5% 254 / 254 254 / 254 250 ML @ 2 MCG/MIN 7.62 mls/hr IVC CONT JAMIL Rx#:[id number] Diprivan 1,000 mg In 100 ml @ 5 100 / 100 100 / 100 MCG/KG/MIN 4.14 mls/hr IVC . Q24H JAMIL Rx#:[id number] Oral 0 / 0 Tube Feeding 107 / 107 Intake, Rinseback and Flushes 600 / 600 Free Water Intake Amount 0 / 0 0 / 0 60 / 60 Output: Urine 0 / 0 Total Dialysis (HD) Output 600 / 600 Left Nephrostomy 10 / 10 Right Nephrostomy 70 / 70 40 / 40 Catheter 85 / 85 125 / 125 Other: # Bowel Movements 0 Blood Glucose* 138 Hemodialysis Net Fluid Removed 0 (mL) - General Appearance General appearance: Present: well-developed, well-nourished EENT: Present: ATNC Neck: Present: supple Respiratory: Present: course breath sounds Cardiology: Present: no edema Dialysis Vascular Access: Venous Catheter Gastrointestinal: Present: normoactive bowel sounds, no tenderness Integumentary: Present: warm and dry Neurologic: Present: alert and oriented x3 Psychiatric: Present: mood/affect appropriate - Lab 02/17/17 04:40 02/17/17 04:40 Most recent lab results ABG pH 7.35 pH Units (7.32-7.45) 02/17/17 06:16 ABG pCO2 49 mmHg (35-45) H 02/17/17 06:16 ABG pO2 75 mmHg (85-104) L 02/17/17 06:16 ABG HCO3 27 mEq/L (21-27) 02/17/17 06:16 ABG O2 Saturation 94 % (95-98) L 02/17/17 06:16 Calcium 6.7 mg/dL (8.6-10.8) L 02/17/17 04:40 Phosphorus 8.1 mg/dL (2.3-4.7) H 02/17/17 04:40 Magnesium 2.3 mg/dL (1.6-2.6) 02/17/17 04:40 - VTE Documentation of Mechanical Device: Intermittent pneumatic compression device Consult Discharge Plan - Plan Referrals: Simeon Lloyd Jr, MD [Primary Care Provider] -
[2017-02-17 10:07] LABS: Complement Component 3 149 mg/dL (88-201); Complement Component 4 30 mg/dL (10-40)
[2017-02-17] MEDS ORDERED: *HR* Midazolam HCl 5 MG/5 ML VIAL IVP ONE ×2 (10:58→11:36)
[2017-02-17] MEDS ORDERED: Vancomycin 500 MG in D5% in Water 100 ML IVPB ONE (12:00)
[2017-02-17 15:43] LABS: Appearance of Body Fluid Slightly Hazy (Clear)
[2017-02-17 15:44] LABS: Volume of Body Fluid 20 mL
[2017-02-17 15:48] VITALS: BP 107/45
[2017-02-17] MEDS ORDERED: Aminoglycoside Consult 1 EACH MC ONE (16:52)
--- NOTE | 2017-02-26 08:53 | Discharge Summary ---
Date of Encounter: 02/26/17 Time of Encounter: 08:47 - Discharge Diagnosis (1) Acute respiratory failure with hypercapnia Priority: Primary Status: Acute (2) Wddmc-[id number] kidney injury Priority: Secondary Status: Acute Qualifiers: Acute renal failure type: unspecified Chronic kidney disease stage: stage 3 (moderate) Qualified Code(s): N17.9 - Acute kidney failure, unspecified; N18.3 - Chronic kidney disease, stage 3 (moderate); N18.3 - Chronic kidney disease, stage 3 (moderate) (3) COPD exacerbation Priority: Secondary Status: Acute (4) Pneumonia Priority: Secondary Status: Acute Qualifiers: Pneumonia type: due to unspecified organism Laterality: right Lung location: upper lobe of lung Qualified Code(s): J18.1 - Lobar pneumonia, unspecified organism (5) Septic shock Priority: Secondary Status: Acute (6) Ureteral stone with hydronephrosis Priority: Secondary Status: Acute - Discharge Medications Home Medications: Allopurinol [Zyloprim] 300 mg PO DAILY 12/28/16 [History] Aspirin [Lo-Dose Aspirin EC] 81 mg PO DAILY 12/28/16 [History] Cyanocobalamin (B-12) [Vitamin B12] 1,000 mcg PO DAILY 12/28/16 [History] Digoxin [Lanoxin] 250 mcg PO DAILY 12/28/16 [History] Gabapentin [Neurontin] 300 mg PO TID 12/28/16 [History] Indomethacin 50 mg PO TID 12/28/16 [History] Metoprolol [Lopressor] 25 mg PO BID 12/28/16 [History] HYDROcodone/Acet 5/325 mg [[place] 5-325 mg] 1 tab PO Q6H PRN #12 tab 02/10/17 [Rx ] Allergies/Adverse Reactions: 3 Allergy/AdvReac Type Severity Reaction Status Date / Time No Known Allergies Allergy Verified 02/11/17 08:14 - Impressions ITS Impressions Head CT 02/12/17 05:22 IMPRESSION: Limited exam with no definite acute intracranial abnormality. D/ / Oli Germain MD / Oli Germain MD Interpreting Provider: Oli Germain MD Echocardiogram 02/12/17 08:19 Impressions: LVEF 60%. Grossly normal LV chamber size, wall thickness and function. Indeterminate diastolic function. Right ventricle was not well visualized. Grossly, it is normal in function. Severely dilated left atrium. Mild pulmonary hypertension. No significant valvular dysfunction. Findings: Study Quality * Technically sub-optimal due to poor echocardiographic windows. ECG Findings * Atrial fibrillation. Left Ventricle * LVEF 60%. * Grossly normal LV chamber size, wall thickness and function. * Indeterminate diastolic function. Right Ventricle * Right ventricle was not well visualized. Grossly, it is normal in function. Left Atrium * Severely dilated left atrium. Right Atrium * Grossly, moderately dilated right atrium. Interatrial Septum * Interatrial septum not well evaluated. Aortic Valve * Aortic valve not well visualized. Mild calcification noted around the annulus. * Grossly, trileaflet aortic valve. * No aortic stenosis. * No aortic regurgitation. Mitral Valve * Mild mitral annular calcification. * No mitral regurgitation. * No mitral stenosis. Tricuspid Valve * Normal tricuspid valve structure and function. * Trace tricuspid regurgitation. * Mild pulmonary hypertension. Pulmonic Valve * Pulmonic valve is not well visualized. * No pulmonic regurgitation. Aorta * Normally sized aortic root. Pericardium * The pericardium appears normal. IVC * Normal IVC dimensions and inspiratory collapse. Pulmonary Artery * Normal visualized portions of the main pulmonary artery. Chest X-Ray 02/13/17 07:46 IMPRESSION: Large area of airspace consolidation in the perihilar region and right upper lobe. Findings suggest worsening pneumonia. Recommend follow-up after resolution of acute symptoms to exclude a central underlying mass. D/ / 02/13/2017 08:20:22 Martinez Burns MD / kylah Interpreting Provider: Martinez Burns MD Chest X-Ray 02/13/17 10:30 IMPRESSION: Stable cardiomegaly. Low lung volumes. Airspace opacity at the right suprahilar region, stable. Recommend follow-up to resolution. Mild pulmonary vascular congestion. D/ / Bo Alston MD / Bo Alston MD Interpreting Provider: Bo Alston MD X-Ray 02/13/17 10:30 IMPRESSION: OG tip likely in the mid body of the stomach but the side hole is not visualized. Recommend repeat film to include the upper abdomen. D/ / Alex Prakash MD / Alex Prakash MD Interpreting Provider: Alex Prakash MD Abdomen/Pelvis CT 02/13/17 11:22 IMPRESSION: Abnormal inflammatory stranding seen surrounding the left sternoclavicular head, which appear superiorly displaced compared to a previous study in 2009. There also appears to be a small collection of fluid within the sternoclavicular joint. No air is seen within this to suggest definite infection. Inflammatory stranding extends along the pectoralis musculature of the left chest, as well as some inflammatory change seen in the anterior aspect of the mediastinum. Some soft tissue nodularity is also seen within the pericardial fat within the chest, of uncertain significance. Correlate if any recent chest surgery, as this could represent postoperative hematoma. Small right pleural effusion, with bibasilar airspace disease predominantly involving partial left lower lobe atelectasis and complete right lower lobe atelectasis. Superimposed pneumonia cannot be excluded. There is moderate to severe right-sided hydronephrosis, with a proximal ureteral calculus measuring 5.3 mm of uncertain duration. There is some cortical atrophy seen in the right renal parenchyma, which could be related to chronic obstruction. Nonobstructive left renal calculi are seen. Diverticulosis. Layering hyperdensity in the gallbladder lumen is suggestive of underlying stones. Large ventral hernia containing loops of small and large bowel with no evidence of incarceration or obstruction. D/ / Khris Holliday MD / Khris Holliday MD Interpreting Provider: Khris Holliday MD Chest CT 02/13/17 11:22 IMPRESSION: Abnormal inflammatory stranding seen surrounding the left sternoclavicular head, which appear superiorly displaced compared to a previous study in 2010. There also appears to be a small collection of fluid within the sternoclavicular joint. No air is seen within this to suggest definite infection. Inflammatory stranding extends along the pectoralis musculature of the left chest, as well as some inflammatory change seen in the anterior aspect of the mediastinum. Some soft tissue nodularity is also seen within the pericardial fat within the chest, of uncertain significance. Correlate if any recent chest surgery, as this could represent postoperative hematoma. Small right pleural effusion, with bibasilar airspace disease predominantly involving partial left lower lobe atelectasis and complete right lower lobe atelectasis. Superimposed pneumonia cannot be excluded. There is moderate to severe right-sided hydronephrosis, with a proximal ureteral calculus measuring 5.3 mm of uncertain duration. There is some cortical atrophy seen in the right renal parenchyma, which could be related to chronic obstruction. Nonobstructive left renal calculi are seen. Diverticulosis. Layering hyperdensity in the gallbladder lumen is suggestive of underlying stones. Large ventral hernia containing loops of small and large bowel with no evidence of incarceration or obstruction. D/ / Khris Holliday MD / Khris Holliday MD Interpreting Provider: Khris Holliday MD X-Ray 02/13/17 16:45 IMPRESSION: Ongoing access of the right renal collecting system as above. Right sided proximal ureteral stone remains visible. D/ / Douglas Jacobsen MD / Douglas Jacobsen MD Interpreting Provider: Douglas Jacobsen MD Guidance Needle Placement Ultrasound 02/14/17 00:00 IMPRESSION: Successful ultrasound guided non-tunneled catheter placement. D/ / Douglas John MD / Douglas John MD Interpreting Provider: Dogulas John MD Insertion Non-Tunneled Catheter 02/14/17 00:00 IMPRESSION: Successful ultrasound guided non-tunneled catheter placement. D/ / Douglas John MD / Douglas John MD Interpreting Provider: Douglas John MD Nephrostomy 02/14/17 00:00 IMPRESSION: Successful percutaneous nephrostomy tube placement Right D/ / Douglas John MD / Douglas John MD Interpreting Provider: Douglas John MD Chest X-Ray 02/14/17 10:51 IMPRESSION: 1. Lines and tubes as above. 2. Prominent pulmonary vasculature may be due to fluid overload/pulmonary vascular congestion. Bilateral pleural effusions. D/ / Yimi Miller MD / Yimi Miller MD Interpreting Provider: Yimi Miller MD Chest X-Ray 02/15/17 16:27 IMPRESSION: 1. ET tube distal tip 3 cm above the olayinka. 2. Stable small left pleural effusion with overlying atelectasis/pneumonia. D/ / Rashawn Sunshine MD / Rashawn Sunshine MD Interpreting Provider: Rashawn Sunshine MD X-Ray 02/15/17 16:28 IMPRESSION: Orogastric tube terminates within the mid to distal gastric body. D/ / Rashawn Sunshine MD / Rashawn Sunshine MD Interpreting Provider: Rashawn Sunshine MD Nephrostomy 02/16/17 00:00 IMPRESSION: Successful percutaneous nephrostomy tube placement using CT guidance D/ / Douglas John MD / Douglas John MD Interpreting Provider: Douglas John MD X-Ray 02/16/17 21:38 IMPRESSION: The tip of the oral gastric tube is in good position in region of the gastric antrum. D/ / Lm Wang MD / Lm Wang MD Interpreting Provider: Lm Wang MD Chest X-Ray 02/17/17 06:00 IMPRESSION: Complete opacification of the left hemithorax. Right basilar atelectasis or pneumonia. D/ / Oli Germain MD / Oli Germain MD Interpreting Provider: Oli Germain MD Chest CT 02/17/17 08:05 IMPRESSION: Inflammatory changes of the soft tissues of the left anterior chest wall and centrally with extension to the underlying musculature and sternoclavicular joint noted, similar to slightly increased from the comparison. Changes within the mediastinum including stranding and fluid collections appear similar to the prior study. High density collection in the anterior aspect of the right side of the mediastinum may represent underlying hemorrhage or high density material, pus in the correct clinical setting. Findings are concerning mediastinitis. Please correlate with history. There has been interval near complete collapse of the left lung with endobronchial soft tissue and fluid density noted in the lower lobe airways. Pleural and parenchymal changes on the right are slightly improved from the comparison. Lines and tubes are in adequate position. The abdomen demonstrates interval development of stranding within the mesentery, peripancreatic tissues and along the jesu hepatic region since the prior study. Findings may represent underlying ascites, although pancreatitis or acute cholecystitis cannot be excluded. There has been interval placement of a right-sided nephrostomy tube with associated decompression of the collecting system. Persistent proximal ureteral calculus is noted. Large ventral hernia again noted. No evidence of obstruction. Findings were discussed with Jaydon Wilkes at 10:40 am on 02/17/2017. D/ / 02/17/2017 11:16:11 Kirby Mendez MD / merry Interpreting Provider: Kirby Mendez MD Abdomen/Pelvis CT 02/17/17 08:06 IMPRESSION: Inflammatory changes of the soft tissues of the left anterior chest wall and centrally with extension to the underlying musculature and sternoclavicular joint noted, similar to slightly increased from the comparison. Changes within the mediastinum including stranding and fluid collections appear similar to the prior study. High density collection in the anterior aspect of the right side of the mediastinum may represent underlying hemorrhage or high density material, pus in the correct clinical setting. Findings are concerning mediastinitis. Please correlate with history. There has been interval near complete collapse of the left lung with endobronchial soft tissue and fluid density noted in the lower lobe airways. Pleural and parenchymal changes on the right are slightly improved from the comparison. Lines and tubes are in adequate position. The abdomen demonstrates interval development of stranding within the mesentery, peripancreatic tissues and along the jesu hepatic region since the prior study. Findings may represent underlying ascites, although pancreatitis or acute cholecystitis cannot be excluded. There has been interval placement of a right-sided nephrostomy tube with associated decompression of the collecting system. Persistent proximal ureteral calculus is noted. Large ventral hernia again noted. No evidence of obstruction. Findings were discussed with Jaydon Wilkes at 10:40 am on 02/17/2017. D/ / 02/17/2017 11:16:11 Kirby Mendez MD / merry Interpreting Provider: Kirby Mendez MD Soft Tissue Neck CT 02/17/17 08:06 IMPRESSION: Inflammatory changes and phlegmon surrounding the left sternoclavicular head, with superior extension anterolateral to the left aspect of the thyroid cartilage, with anterolateral extension along the left chest wall likely with myositis of the left pectoral muscles. There is inferior and posterior extension of the inflammatory changes into the superior mediastinum. Overall, the inflammatory changes and phlegmon appeared to be mildly increased since the prior study. Interval increased opacification in the visualized left upper lung field. D/ / Bo Alston MD / Bo Alston MD Interpreting Provider: Bo Alston MD Chest X-Ray 02/17/17 11:45 IMPRESSION: Significantly improved aeration in the left upper lung zone with residual fluid and airspace changes in the left lower lung zone. D/ / Tavo Gilmore MD / Tavo Gilmore MD Interpreting Provider: Tavo Gilmore MD Date of admission: 02/11/17 09:20 Primary care physician: Simeon Lloyd Jr, MD Consults: 02/13/17 08:09 Consult to Nephrology [CONS] Routine Consulting Provider: Kidney Shannen/ANALIA/NALLELY/KELLY Reason for Consult: RICH Call Completed: Yes 02/13/17 09:15 Consult to Critical Care [CONS] Routine Consulting Provider: [facility] [place] Reason for Consult: sepsis secondary to PNA Call Completed: Yes 02/13/17 14:04 Consult to Urology [CONS] Routine Consulting Provider: Urology [place] Reason for Consult: Ureteral stone, hydronephrosis Call Completed: Yes 02/13/17 14:19 Consult to Wound Care [CONS] Routine Reason for Consult: per family request for wound to right foot and leg followed by Dr. Mary in [facility] Time Notified: 14:20 Call Completed: Yes 02/14/17 07:11 Consult to Interventional Radiology [CONS] Routine Consulting Provider: Radiology Interventional [place] Reason for Consult: Percutaneous nephrostomy tube and Temp HD line Call Completed: Yes 02/14/17 08:15 Consult to Dialysis [CONS] ONCE 02/14/17 11:26 Consult to Nutrition [CONS] Routine Comment: Consulting Provider: NUTRITION Reason for Dietary Consult: TF Start and Manage 02/15/17 09:30 Consult to Dialysis [CONS] ONCE 02/16/17 14:45 Consult to Dialysis [CONS] ONCE Discharging clinician: Jaydon Wilkes Anticipated date of discharge: 02/17/17 - Patient Status Disposition: Transfer Critical Access Hosp Condition: Critical Overall status at discharge: patient is not back to baseline - Discharge Instructions Follow Up With: Simeon Lloyd Jr, MD [Primary Care Provider] - - Hospital Course Hospital course: Mr. Daniel is a 61 year old male background history of her COPD, hypertension , atrial fibrillation not on any anticoagulation, background history of congestive heart failure(echocardiogram: 04/08/2015: Ejection fraction 60%, RVSP 46, enlarged left atrim presented with shoulder pain and shortness of breath. Course complicated by progession to respiratory failure requiring intubation and mechanical ventilation MRSA bacteremia with septic shock along with RICH UTI (klebsiella UTI) with obstructive nephrophathy s/p Urology consult and nephrology consultation with initiation of hemodialysis for anuric RICH. 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 Despite agressive ICU care clinical recovery was slow with repeat CT imaging suggestive of mediastinal infection and possible abscess formation. He was transferred to [facility] for further evaluation including Infectious Disease Consultation and Possible Thoracic surgery evaluation. - Time Spent with Patient Total time spent providing and/or coordinating discharge services: 30 min Physical Examination Vital Signs: see daily exam in progress note dated 02/17/17 - VTE Documentation of Mechanical Device: Intermittent pneumatic compression device
== END 2017-02-17 16:53 | disposition critical access hospital (66) | DRG 264 ==
LOC: EMEROO 05:59 → 3BNU 05:59 → ICNU 02-13 09:57
PROVIDERS: ADMIT Internal Medicine; ATTEND Registered Nurse